=== PATIENT | male | born 1950 | race Caucasian/White ===

== ENCOUNTER 2023-06-17 14:46 | Inpatient (IN) | payer MEDICARE, SELFPAY ==
[2023-06-17 14:51] VITALS: BP 121/99; PULSE 124; RESP 16; TEMP 36.6; O2SAT 96
[2023-06-17 15:36] LABS: Clarity Turbid (Clear); Specific Gravity 1.025 (1.005-1.025)
[2023-06-17 15:39] LABS: Bilirubin Color Interference (Negative); Blood Color Interference (Negative); Glucose Color Interference mg/dL (Negative); Ketones Color Interference mg/dL (Negative); Leukocyte Esterase Color Interference (Negative); Nitrite Color Interference (Negative); Urobilinogen Color Interference mg/dL (Up to 0.2)
[2023-06-17 15:41] LABS: C & S Indicated? Yes; RBC >50 HPF (0-2)
--- NOTE | 2023-06-17 16:21 | DI.CT_ITS ---
Exam(s) CT ABDOMEN PELVIS W EXAM: CT ABDOMEN PELVIS W CLINICAL HISTORY: gross hematuria. TECHNIQUE: Imaging Protocol: Axial computed tomography images with coronal and sagittal reformatted images were created and reviewed CONTRAST MATERIAL: Intravenous: Omnipaque 350 Contrast volume:100 ml Oral: / no COMPARISON: No exams were available for comparison FINDINGS: ABDOMEN and PELVIS: Lung Bases: No acute findings. Liver: Normal density. No measurable mass. Gallbladder and biliary tract: No radiodense calculus or biliary dilation. Pancreas: Normal density. No abnormal calcifications or inflammatory process. No evidence of mass. Spleen: Normal. Kidneys: Normal size, contour and axis. No radiodense stones. Mild bilateral hydronephrosis. No renetta picious masses seen. Cyst upper pole left kidney. No follow-up recommended. Adrenal glands: No masses seen. Vasculature: Abdominal aorta non-dilated. Soft tissues: Small fatty containing umbilical hernia. Small fatty containing inguinal hernias. 8 m illimeter lymph node seen adjacent to the right anterior portion of the bladder. Bladder: Marked irregular wall thickening. Several bladder diverticula are present. Large amount of hemorrhage versus mass within bladder lumen. Malave catheter in place. Bladder mainly decompressed. Bowel: Diverticulosis of the sigmoid colon. No evidence of diverticulitis. Normal quantity of stool . No obstruction. No bowel wall thickening. Appendix normal. Peritoneal cavity: No ascites. No focal collection or mesenteric inflammatory response. Bones: Degenerative changes in the spine. Reproductive organs: Within normal limits. Lymph nodes: Unremarkable. IMPRESSION:: Marked irregular bladder wall thickening. Mass versus hemorrhage within the lumen. Mi ld bilateral hydronephrosis. Findings called to Dr. Dias of the emergency department. RADIATION DOSE DELIVERED: Total DLP DATA REPOSITORY: All CT scans at this facility are submitted to the National Radiology Data Registry (NRDR) Dose Index Registry (DIR) with the [employer] (ACR). RADIATION OPTIMIZATION: All CT scans at this facility use at least one of these dose optimization te chniques: automated exposure control; mA and/or kV adjustment per patient size (includes targeted exa ms where dose is matched to clinical indication); or iterative reconstruction.
[2023-06-17 16:22] VITALS: BP 121/99; PULSE 124; RESP 16; TEMP 36.6; O2SAT 96
--- NOTE | 2023-06-17 16:23 | W.ED.GENAD ---
Discharge Plan Disposition Patient Disposition: Admit to [facility] Condition: Fair Discharge Details Clinical Impression: Gross hematuria, Urinary retention Primary Care Provider: Mary Clements ED Provider: Renny Dias Home Meds and New Rx's Prescriptions: No Action No Known Home Meds [facility] General Mode of arrival: ambulatory. Date/Time Provider Initiated Documentation: 06/17/23 14:55. Limitations to Documentation: no limitations. Information obtained by: patient and RN notes reviewed. HPI Narrative: Patient presents to ED with difficulty urinating and blood in his urine. Patient has had no contact with physician for many years. Considers himself healthy. In March started to develop some difficulty urinating, needing to sit down to urinate, a lot of urgency and nighttime urination. In the last 24 to 48 hours has had gross blood in his urine and even more difficulty urinating. Denies feeling ill, fever, chills. Denies any back or flank pain. Denies any abdominal pain, night sweats, weight loss. Denies any chest pain, lightheadedness, syncope, shortness of breath. Related Data Home Medications Medication Instructions Recorded Confirmed Unknown [No Known Home Meds] 06/17/23 06/17/23 Allergies Allergy/AdvReac Type Severity Reaction Status Date / Time No Known Allergies Allergy Unverified 06/17/23 16:20 General Stated Complaint: Urinary GERARDO: 3 Review of Systems Narrative: per HPI Exam Narrative Exam Narrative: Const: WDWN male in NAD. VS per triage. HEENT: NC/AT. Normal facial exam. Eyes: Normal conjunctiva and sclera. Neck: Supple. Trachea midline. Lungs: Normal respiratory effort. Lungs are clear. Cor: RRR without murmur. Good radial pulses. GI: Soft. NT/ND. No guarding or rebound. Back: No CVAT Neuro: A+O x 3. Normal speech, mentation, gait. Cranial nerves II - XII grossly intact. No gross motor or sensory deficit. Ext: No C/C/E. Skin: Warm and dry without rash. Course Vital Signs Vital signs: Vital Signs Temperature 97.9 F 06/17/23 14:51 Pulse 124 H 06/17/23 14:51 Respiratory Rate 16 06/17/23 14:51 Blood Pressure 121/99 H 06/17/23 14:51 Pulse Oximetry 96 04/10/24 14:51 Temperature 97.9 F 06/17/23 14:51 Temperature Source Oral 06/17/23 14:51 Pulse 124 H 06/17/23 14:51 Respiratory Rate 16 06/17/23 14:51 Blood Pressure 121/99 H 06/17/23 14:51 Blood Pressure Position Sitting 06/17/23 14:51 Pulse Oximetry 96 06/17/23 14:51 Oxygen Delivery Method Room Air 06/17/23 14:51 Oxygen Flow Rate 0 06/17/23 14:51 Pain Level 0 06/17/23 14:51 Lab/Test Results Lab/Test Results: 06/17/23 15:08 Urine - Reflex from Ua Urine Culture - Pending Laboratory Tests Range/Units 06/17/23 15:08 Urine Color (Yellow) Color Interference Urine Clarity (Clear) Turbid Urine pH Not Applicable Ur Specific [place] (1.005-1.025) 1.025 Urine Protein (Neg-Trace) mg/dL Color Interference Urine Ketones (Negative) mg/dL Color Interference Urine Blood (Negative) Color Interference Urine Nitrite (Negative) Color Interference Urine Bilirubin (Negative) Color Interference Urine Urobilinogen (Up to 0.2) mg/dL Color Interference Ur Leukocyte Esterase (Negative) Color Interference Urine RBC (0-2) HPF >50 H Urine WBC Not Applicable Ur Epithelial Cells Not Applicable Urine Crystals Not Applicable Urine Bacteria Not Applicable Urine Mucus Not Applicable Ur Culture Indicated? Yes Urine Glucose (Negative) mg/dL Color Interference Medical Decision Making Patient presenting to ED with urinary retention and gross hematuria. Has had no medical care in many years according to the patient. Does not feel ill otherwise and denies any weight loss, night sweats. Denies any back or flank pain. Will plan IV, labs, three-way Malave with CBI, CT of the abdomen pelvis. Patient white count is elevated to 16. His hemoglobin is normal at 14.1. His BUN is a little elevated at 27 but creatinine normal at 1.3. Electrolytes look okay. His urine is gross blood. Despite his white count he reports not feeling ill and denies any fever or chills. Would not start antibiotics pending culture results. CT of the abdomen pelvis shows some mild symmetric bilateral hydronephrosis. There is significant thickening and irregularity to the bladder wall as well as probable hemorrhagic component in the lumen. With hand irrigation and CBI we were able to clear his urine, however, as soon as CBI is turned off it returns bright red once again. Patient would benefit from admission for CBI overnight and urology consult in the morning. Patient agreeable with plan. Case discussed with hospitalist, Dr. Christy, who has accepted patient to the hospitalist service. Lab Data Lab results reviewed: Yes I reviewed the patient's lab results. Quality:SDOH Health Related Social Needs: No Data to Display [facility] All Active Problems (Updated 06/17/23 @ 19:48 by Renny Dias MD) Urinary retention (Acute) Gross hematuria (Acute) Medical History (Updated 06/17/23 @ 19:48 by Renny Dias MD) No significant past medical history Surgical History No significant past surgical history Social History Smoking/Tobacco Use Status: Never Smoking risk assessment performed?: Yes Housing: house Do you feel safe at home: Yes Do you feel safe in your relationship?: Yes
[2023-06-17 16:41] LABS: Abs Immature Grans 0.05 10^3/uL (0.0-0.06); Absolute Lymphocyte Count 1.42 10^3/uL (1.2-3.4); Basophils % 0.3; Eosinophils % 1.1; HCT 43.1 % (40.0-50.0); HGB 14.1 g/dL (13.5-17.5); Immature Grans % 0.3; Lymphocytes % 8.9; MCH 30.9 pg (27.0-33.0); MCHC 32.7 % (32.0-36.0); MCV 94 fL (80-95); MPV 10.8 fL (8.0-11.0); Monocytes % 6.9; Neutrophils % 82.5; Platelet Count 257 10^3/uL (130-400); RBC 4.57 10^6/uL (4.36-5.78); RDW 12.5 % (11.8-14.1); RDW-SD 43.5 fL
[2023-06-17 16:42] LABS: Absolute Basophil Count 0.05 10^3/uL (0.0-0.2); Absolute Eosinophil Count 0.18 10^3/uL (0.0-0.7)
[2023-06-17] MEDS: Lidocaine 2% Jelly 6 ML SYR (16:49)
[2023-06-17 16:57] LABS: ALT 28 U/L (16-63); AST 19 U/L (15-37); Albumin 3.7 g/dL (3.4-5.0); Alkaline Phosphatase 87 U/L (46-116); Anion Gap 11.9 mmol/L (3-11); BUN 27 mg/dL (7-18); CO2 26.1 mmol/L (21.0-32.0); CREATININE 1.3 mg/dL (0.70-1.30); Calcium 10.2 mg/dL (8.5-10.1); Chloride 105 mmol/L (98-107); Estimated GFR 58.37 (mL/min/1.73m2); Glucose 121 mg/dL (74-106); Potassium 4.2 mmol/L (3.5-5.1); Sodium 143 mmol/L (136-145); Total Protein 8.4 g/dL (6.4-8.2)
[2023-06-17] MEDS: Normal Saline - Diluent 50 ML VIAL IJ (18:02)
[2023-06-17] MEDS: Omnipaque 350 MG/ML 100 ML BTL IJ (18:03)
--- NOTE | 2023-06-17 19:09 | NUR.NOTE ---
Nursing Note CBI emptied 1200 ml
--- NOTE | 2023-06-17 19:14 | NUR.NOTE ---
CBI amount emptied 1800ml Nursing Note:
--- NOTE | 2023-06-17 19:24 | NUR.NOTE ---
Nursing Note: PT CBI bag switched. 3000 ml run at this time.
[2023-06-17 19:25] VITALS: BP 158/109; PULSE 110; RESP 17; O2SAT 92
--- NOTE | 2023-06-17 19:29 | NUR.NOTE ---
Nursing Note: 1200 ml CBI emptied
--- NOTE | 2023-06-17 19:39 | NUR.NOTE ---
Nursing Note: CBI 1250ml clear output emptied
--- NOTE | 2023-06-17 19:51 | NUR.NOTE ---
Nursing Note: CBI 1400 clear urine emptied
--- NOTE | 2023-06-17 20:00 | HPE_ITS ---
Date of service: 06/17/23 Time of Service: 20:00 Assessment and Plan Assessment and plan (1) Gross hematuria: Status: Acute Assessment and plan: Gross hematuria, by imaging bladder is likely source. Will consult for cysto, maintain CBI in meantime (will leave NPO for possible OR). Low grade fever and leukocytosis noted, conceivable this could be presentation of infection, will culture urine and give single dose Rocephin for now to cover this possibility. Reviewed ADs, requests Full Code. History of Present Illness History of Present Illness Chief Complaint: painless hematuria Narrative: 72 male with no significant PMH, does not have regular medical care -- here with 2 days of gross hematuria. No fever, chills, abdominal or bck pain. In ER work up of note for (initially) absence of fever -- during my visit had to temp to 100.0 -- white count 16, gross hematuria, with clots, and CT showing gross thickening of bladder wall along with mild bilateral hydronephrosis. Creatinine 1.3. Malave placed and CBD initiated. I was asked to evaluate for admission. Review of Systems Narrative: per HPI PFSH All Active Problems Urinary retention (Acute) Gross hematuria (Acute) Medical History No significant past medical history Surgical History No significant past surgical history Social History Smoking/Tobacco Use Status: Never Smoking risk assessment performed?: Yes Housing: house Do you feel safe at home: Yes Do you feel safe in your relationship?: Yes Meds Allergies and Home Medications Allergies Allergy/AdvReac Type Severity Reaction Status Date / Time No Known Allergies Allergy Unverified 06/17/23 16:20 Home Medications Medication Instructions Recorded Confirmed Type Unknown [No Known Home Meds] 06/17/23 06/17/23 History Exam Narrative Exam Narrative: 125/85, 91, 100.0, 17, 94% RA. HEENT atraumatic; neck supple; lungs clear; heart occasion ectopic; ; negative CVAT; abdomen soft and NT; : Malave in place, no scrotal swelling or erythema' rectal deferred; extremities trace pedal edema;neuro Ox3, lucid, moves all 4s Results Labs 06/17/23 16:34 06/17/23 16:34 Labs: Laboratory Results - last 24 hr 06/17/23 06/17/23 15:08 16:34 WBC 16.00 H RBC 4.57 Hgb 14.1 Hct 43.1 MCV 94 MCH 30.9 MCHC 32.7 RDW 12.5 Plt Count 257 MPV 10.8 Immature Gran % 0.3 Neutrophils % 82.5 Lymphocytes % 8.9 Monocytes % 6.9 Eosinophils % 1.1 Basophils % 0.3 Nucleated RBC % 0.0 Absolute Neutrophils 13.20 H Absolute Lymphocytes 1.42 Absolute Monocytes 1.10 H Absolute Eosinophils 0.18 Absolute Basophils 0.05 Sodium 143 Potassium 4.2 Chloride 105 Carbon Dioxide 26.1 Anion Gap 11.9 H BUN 27 H Creatinine 1.3 Est GFR (CKD-EPI 2020) 58.37 Glucose 121 H Calcium 10.2 H Total Bilirubin 1.0 AST 19 ALT 28 Alkaline Phosphatase 87 Total Protein 8.4 H Albumin 3.7 Urine Color Color Interference Urine Clarity Turbid Urine pH Not Applicable Ur Specific [place] 1.025 Urine Protein Color Interference Urine Ketones Color Interference Urine Blood Color Interference Urine Nitrite Color Interference Urine Bilirubin Color Interference Urine Urobilinogen Color Interference Ur Leukocyte Esterase Color Interference Urine RBC >50 H Urine WBC Not Applicable Ur Epithelial Cells Not Applicable Urine Crystals Not Applicable Urine Bacteria Not Applicable Urine Mucus Not Applicable Ur Culture Indicated? Yes Urine Glucose Color Interference Last Vital Signs Temp 36.6 C 06/17/23 16:22 Pulse 110 H 06/17/23 19:25 Resp 17 06/17/23 19:25 BP 158/109 H 06/17/23 19:25 Pulse Ox 92 06/17/23 19:25 PAWSS Have you Been Recently Intoxicated or Drunk Within the Last 30 days?: No Have you Ever Experienced Previous Episodes of Alcohol Withdrawal?: No Have you ever Experienced Withdrawal Seizures?: No Have you ever Experienced Delirium Tremens(DT)s?: No Have you ever undergone Alcohol Rehabilitation Treatment (i.e, inpt ot outpatient treatment programs)?: No Have you ever Experienced Blackouts?: No Have you ever Combined Alcohol with other Downers within the last 90 days?: No Have you ever Combined Alcohol with any other Substance of Abuse during the last 90 days?: No Positive Blood Alcohol level on Presentation? [PCS.BAL]: No Evidence of Increased Autonomic Activity (i.e. HR>120, tremor, sweating, agitation, nausea)?: No Result: 0 Time Spent Time spent with Patient: 40-54 minutes Time was spent: preparing to see the patient(eg.review tests), obtaining and/or reviewing separately otained hiistory, ordering medications,tests, procedures, referring, communicating with other health human services care specialist and indepentently interpreting results
--- NOTE | 2023-06-17 20:29 | NUR.NOTE ---
Nursing Note:1800 red tinged output drained at this time
[2023-06-17 20:45] VITALS: BP 141/95; PULSE 105; RESP 17; TEMP 37.7; O2SAT 92
[2023-06-17 20:54] VITALS: BP 126/112; PULSE 113; RESP 22; TEMP 37.8; O2SAT 93
[2023-06-17] MEDS: Normal Saline Flush 10 ML SYR IVP (21:31)
[2023-06-17] MEDS: cefTRIAXone 1,000 MG in Normal Saline 50 ML 100 MG IVPB (21:31)
[2023-06-17 22:38] VITALS: BP 127/87; PULSE 121; RESP 17; TEMP 38.4; O2SAT 94
[2023-06-17] MEDS: Lactated Ringers 1,000 ML 100 ML IV (22:52)
[2023-06-17] MEDS: Acetaminophen 325 MG TAB 650 MG PO (22:57)
[2023-06-18] MEDS: Lactated Ringers 1,000 ML 100 ML IV (07:27)
[2023-06-18] MEDS: Normal Saline Flush 10 ML SYR IVP ×2 (07:28→20:05)
[2023-06-18 08:56] VITALS: BP 116/80; PULSE 88; RESP 18; TEMP 36.8; O2SAT 93
--- NOTE | 2023-06-18 09:18 | PDOC.CMIN ---
Date of service: 06/18/23 Time of Service: 09:19 Care Management Initial Assmt Initial Assessment REASON FOR HOSPITALIZATION:: hematuria PREVIOUS FUNCTIONAL STATUS/SOCIAL/FAMILY SUPPORTS:: Aníbal lives in a single family home in [place], [place] with his housemate Eulalia. He has a son who lives in [place], [place] and a daughter who lives in [place]. Aníbal is retired and stated that he has had many different jobs over the years. 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 Aníbal is independent at baseline and does not receive any community services. CURRENT FUNCTIONAL STATUS:: Aníbal was lying in bed when CM met with him. He was pleasant and engaged well with CM. Aníbal shared that he does not have a PCP and has not sought medical care in many years. He informed CM that he has had prostate issues in the past but has never had hematuria. When he began passing bloody urine with clots, he realized that he needed to be seen. He has a CBI running currently and his urine is more pink than red today with fewer clots. Unfortunately Dr. Carpio is away until next week so Aníbal will likely be discharged with his figueroa and follow up with urology next week. ADVANCE DIRECTIVES:: none on file Has patient been provided with info about the portal/API?: Yes Did the patient sign up for the portal?: No CODE STATUS:: Full Code INSURANCE COVERAGE / FINANCIAL ISSUES:: Medicare CURRENT HOME/COMMUNITY SERVICES/EQUIPMENT:: none PRIMARY CARE PHYSICIAN:: Mary Clements POTENTIAL DISCHARGE NEEDS:: follow up with Urology and PCP PATIENT/FAMILY EDUCATION NEEDS:: Review of discharge instructions, activity, limitations, follow up plan, discuss Ask Me Three TRANSPORTATION:: via private vehicle with family/friend PLAN:: Anticipate Aníbal will be discharged home with no new services when medically stable. He will follow up with Dr. Carpio as an outpatient next week. He will transport with a friend or family member. CM will follow and continue to assess for discharge needs. PFSH All Active Problems Urinary retention (Acute) Gross hematuria (Acute) Medical History No significant past medical history Surgical History No significant past surgical history Social History Smoking/Tobacco Use Status: Never Smoking risk assessment performed?: Yes Housing: house Do you feel safe at home: Yes Do you feel safe in your relationship?: Yes SDOH(Care Management) Screening Will the Patient Participate in the Screening?: Yes Do you worry about having a steady place to live?: no Problems where you live: no known problems In the past 12 months, have you had to go without electric, gas, oil or water in your home?: no Have you or anyone in your house had to go without enough food to eat?: no Has lack of transportation kept you from medical appointments or from doing things needed for daily living?: no Has anyone in your support network made you feel unsafe for any reason?: no
[2023-06-18] MEDS: cefTRIAXone 1 GM/50 ML BAG IVPB (10:25)
[2023-06-18 11:36] VITALS: BP 129/85; PULSE 103; RESP 19; TEMP 37; O2SAT 93
[2023-06-18] MEDS: Acetaminophen 325 MG TAB 650 MG PO ×2 (11:49→19:48)
[2023-06-18] MEDS: Ibuprofen 600 MG TAB PO (13:28)
--- NOTE | 2023-06-18 14:44 | W.PM.PROGNOT ---
Date of Service Date of service: 06/18/23 Time of Service: 14:44 Assessment and Plan Assessment and plan (1) Gross hematuria: Status: Acute Assessment and plan: Secondary to cystitis and chronic urinary retention (2) Urinary retention: Status: Acute Assessment and plan: Continue urinary catheter drainage until seen by urology next week (3) Bilateral hydronephrosis: Status: Acute Assessment and plan: Continue CBI overnight with three-way urinary catheter we will plan for exchange to a Malave catheter in the morning with follow-up with Dr. Carpio next week. (4) Cystitis: Status: Acute Assessment and plan: Continue CBI overnight and Rocephin. Needs cystoscopy to evaluate for bladder mass,. Patient may need a TURP (5) BPH (benign prostatic hyperplasia): Status: Chronic Assessment and plan: Patient has not been on any prescription medicines for this but had been trying [id number] medications. Will start him on Flomax Qualifiers: Lower urinary tract symptom presence: symptoms present Lower urinary tract symptom detail: urinary obstruction Qualified Code(s): N40.1 - Benign prostatic hyperplasia with lower urinary tract symptoms; N13.8 - Other obstructive and reflux uropathy Subjective Subjective Interval history since last seen: Mr. Nichole states he is feeling much better now that the pressure has been relieved from his bladder. He has a three-way catheter with continuous bladder irrigation. Urine is now starting to lighten up. We will continue bladder irrigation through this evening and switch him over to a Malave catheter tomorrow and then plan on discharging him home tomorrow with an indwelling Malave catheter and have him follow-up with Dr. Carpio as an outpatient next week. I went over the results of his CT scan which showed bladder wall thickening and explained to him that they cannot rule out possible bladder mass and he will need to have a cystoscopy next week with biopsies. He does have bilateral hydronephrosis brought on by the bladder outlet obstruction and this should resolve over time. In the interim we will keep him on Rocephin for possible bladder infection pending results of his urine and blood cultures. Exam Narrative Exam Narrative: Elderly white male sitting up in his bed talking with his girlfriend no acute distress alert and oriented Abdomen soft nondistended nontender Three-way catheter draining relatively clear urine just some small shreds of clot still coming through. Previously had been bright red and then became pink and now it looks like a just slightly pinkish discoloration to the urine. Objective Last Vital Signs Temp 37.0 C 06/18/23 11:36 Pulse 103 H 06/18/23 11:36 Resp 19 06/18/23 11:36 BP 129/85 06/18/23 11:36 Pulse Ox 93 06/18/23 11:36 Laboratory Results - last 24 hr 06/17/23 06/17/23 15:08 16:34 WBC 16.00 H RBC 4.57 Hgb 14.1 Hct 43.1 MCV 94 MCH 30.9 MCHC 32.7 RDW 12.5 Plt Count 257 MPV 10.8 Immature Gran % 0.3 Neutrophils % 82.5 Lymphocytes % 8.9 Monocytes % 6.9 Eosinophils % 1.1 Basophils % 0.3 Nucleated RBC % 0.0 Absolute Neutrophils 13.20 H Absolute Lymphocytes 1.42 Absolute Monocytes 1.10 H Absolute Eosinophils 0.18 Absolute Basophils 0.05 Sodium 143 Potassium 4.2 Chloride 105 Carbon Dioxide 26.1 Anion Gap 11.9 H BUN 27 H Creatinine 1.3 Est GFR (CKD-EPI 2020) 58.37 Glucose 121 H Calcium 10.2 H Total Bilirubin 1.0 AST 19 ALT 28 Alkaline Phosphatase 87 Total Protein 8.4 H Albumin 3.7 Urine Color Color Interference Urine Clarity Turbid Urine pH Not Applicable Ur Specific [place] 1.025 Urine Protein Color Interference Urine Ketones Color Interference Urine Blood Color Interference Urine Nitrite Color Interference Urine Bilirubin Color Interference Urine Urobilinogen Color Interference Ur Leukocyte Esterase Color Interference Urine RBC >50 H Urine WBC Not Applicable Ur Epithelial Cells Not Applicable Urine Crystals Not Applicable Urine Bacteria Not Applicable Urine Mucus Not Applicable Ur Culture Indicated? Yes Urine Glucose Color Interference Add-On Test Request [place] PAWSS Have you Been Recently Intoxicated or Drunk Within the Last 30 days?: No Have you Ever Experienced Previous Episodes of Alcohol Withdrawal?: No Have you ever Experienced Withdrawal Seizures?: No Have you ever Experienced Delirium Tremens(DT)s?: No Have you ever undergone Alcohol Rehabilitation Treatment (i.e, inpt ot outpatient treatment programs)?: No Have you ever Experienced Blackouts?: No Have you ever Combined Alcohol with other Downers within the last 90 days?: No Have you ever Combined Alcohol with any other Substance of Abuse during the last 90 days?: No Positive Blood Alcohol level on Presentation? [PCS.BAL]: No Evidence of Increased Autonomic Activity (i.e. HR>120, tremor, sweating, agitation, nausea)?: No Result: 0 Time Spent with Patient Time Spent with Patient: 35-49 minutes Time was spent: preparing to see the patient(eg.review tests), obtaining and/or reviewing separately otained hiistory, ordering medications,tests, procedures, referring, communicating with other health medicare contact specialist, indepentently interpreting results, counseling the patient and care coordination
[2023-06-18 15:36] VITALS: BP 120/80; PULSE 98; RESP 18; TEMP 37.2; O2SAT 92
[2023-06-18 19:46] VITALS: BP 129/83; PULSE 108; RESP 20; TEMP 37.7; O2SAT 92
[2023-06-18] MEDS: Tamsulosin 0.4 MG CAPCR PO (19:48)
[2023-06-19 00:26] VITALS: BP 125/92; PULSE 93; RESP 22; TEMP 37.4; O2SAT 92
[2023-06-19] MEDS: Ibuprofen 600 MG TAB PO ×3 (02:04→22:00)
[2023-06-19 02:06] VITALS: BP 125/85; PULSE 112; RESP 18; TEMP 37.3; O2SAT 91
[2023-06-19 07:11] VITALS: BP 133/88; PULSE 107; RESP 28; TEMP 36.6; O2SAT 91
[2023-06-19] MEDS: Glucosamine/Chondroitin CAP 1 CAP PO ×2 (09:05→20:09)
[2023-06-19] MEDS: Normal Saline Flush 10 ML SYR IVP ×2 (09:07→20:09)
[2023-06-19] MEDS: cefTRIAXone 1 GM/50 ML BAG IVPB (10:24)
[2023-06-19 11:58] VITALS: BP 125/86; PULSE 91; RESP 28; TEMP 37.5; O2SAT 91
--- NOTE | 2023-06-19 13:21 | W.PM.PROGNOT ---
Date of Service Date of service: 06/19/23 Time of Service: 13:21 Assessment and Plan Assessment and plan (1) Gross hematuria: Status: Acute Assessment and plan: Secondary to cystitis and chronic urinary retention, some of the urinary discoloration may be from the phenazopyridine, however, I think that this is gross hematuria. I will stop the pyridium for now (2) Urinary retention: Status: Acute Assessment and plan: Continue urinary catheter drainage until seen by urology next week (3) Bilateral hydronephrosis: Status: Acute Assessment and plan: Continue CBI overnight with three-way urinary catheter we will plan for exchange to a Malave catheter in the morning with follow-up with Dr. Carpio next week. (4) Cystitis: Status: Acute Assessment and plan: Continue CBI overnight and Rocephin. Needs cystoscopy to evaluate for bladder mass,. Patient may need a TURP (5) BPH (benign prostatic hyperplasia): Status: Chronic Assessment and plan: Patient has not been on any prescription medicines for this but had been trying [id number] medications. Will start him on Flomax Qualifiers: Lower urinary tract symptom presence: symptoms present Lower urinary tract symptom detail: urinary obstruction Qualified Code(s): N40.1 - Benign prostatic hyperplasia with lower urinary tract symptoms; N13.8 - Other obstructive and reflux uropathy Subjective Subjective Interval history since last seen: Patient's urine had cleared overnight w/CBI but when CBI was stopped he developed some recurrent hematuria, dark tea colored to dark landa juice color but no clots. I told the patient that we will continue w/ CBI Exam Narrative Exam Narrative: NO abdominal pain or distension, urinary catheter draining dark landa colored urine but no visible clots Objective Last Vital Signs Temp 37.5 C 06/19/23 11:58 Pulse 91 H 06/19/23 11:58 Resp 28 H 06/19/23 11:58 BP 125/86 06/19/23 11:58 Pulse Ox 91 L 06/19/23 11:58 PAWSS Have you Been Recently Intoxicated or Drunk Within the Last 30 days?: No Have you Ever Experienced Previous Episodes of Alcohol Withdrawal?: No Have you ever Experienced Withdrawal Seizures?: No Have you ever Experienced Delirium Tremens(DT)s?: No Have you ever undergone Alcohol Rehabilitation Treatment (i.e, inpt ot outpatient treatment programs)?: No Have you ever Experienced Blackouts?: No Have you ever Combined Alcohol with other Downers within the last 90 days?: No Have you ever Combined Alcohol with any other Substance of Abuse during the last 90 days?: No Positive Blood Alcohol level on Presentation? [PCS.BAL]: No Evidence of Increased Autonomic Activity (i.e. HR>120, tremor, sweating, agitation, nausea)?: No Result: 0 Time Spent with Patient Time Spent with Patient: 25-34 minutes Time was spent: preparing to see the patient(eg.review tests), ordering medications,tests, procedures, referring, communicating with other health home care chaplain, indepentently interpreting results, counseling the patient and care coordination
[2023-06-19 14:11] LABS: Abs Immature Grans 0.04 10^3/uL (0.0-0.06); Absolute Basophil Count 0.08 10^3/uL (0.0-0.2); Absolute Eosinophil Count 1.02 10^3/uL (0.0-0.7); Absolute Lymphocyte Count 1.64 10^3/uL (1.2-3.4); Absolute Monocyte Count 0.76 10^3/uL (0.1-0.8); Absolute Neutrophil Count 7.66 10^3/uL (1.2-6.7); Basophils % 0.7; Eosinophils % 9.1; HCT 38.5 % (40.0-50.0); HGB 12.8 g/dL (13.5-17.5); Immature Grans % 0.4; Lymphocytes % 14.6; MCH 31.1 pg (27.0-33.0); MCHC 33.2 % (32.0-36.0); MCV 94 fL (80-95); Monocytes % 6.8; Neutrophils % 68.4; Platelet Count 240 10^3/uL (130-400); RBC 4.11 10^6/uL (4.36-5.78); RDW 12.2 % (11.8-14.1); RDW-SD 42.3 fL
[2023-06-19 14:23] LABS: BUN 17 mg/dL (7-18); CREATININE 0.9 mg/dL (0.70-1.30); Calcium 9.3 mg/dL (8.5-10.1); Chloride 106 mmol/L (98-107); Estimated GFR 90.74 (mL/min/1.73m2); Glucose 161 mg/dL (74-106); Potassium 3.4 mmol/L (3.5-5.1); Sodium 143 mmol/L (136-145)
[2023-06-19 14:24] LABS: PTT Activated 29.5 sec (23.6-32.8); Prothrombin Time 10.3 sec (9.1-11.1)
--- NOTE | 2023-06-19 14:56 | CHAPLAIN ---
Aníbal was resting in bed when I visited. He was very pleasant and explained that he'll be discharged likely today, and have a follow up appointment with Dr. Carpio next week because he's on vacation this week. Aníbal said his girlfriend will pick him up. He's been in touch with his son and daughter, who both live out of state. Aníbal is originally from [place] and moved up here several years ago. He's retired now. I explained my role and offered support.
--- NOTE | 2023-06-19 16:06 | PDOC.CMPRO ---
Date of service: 06/19/23 Time of Service: 16:06 Care Management Progress Note Progress Note Text Progress Note Text: S/O:Aníbal was sitting up in bed when CM met with him. He appeared to be in good spirits and informed CM that he thought he would be discharged today. Overnight his urine cleared up and was light pink with only a few shreds of clots this morning. He denied pain or discomfort or the need for any services. Unfortunately, Aníbal began to bleed again and the decision was made to restart his CBI and keep him another night. While he was not happy with the outcome, Aníbal stated that he would rather be in the hospital where he could be closely monitored and treated. A: Aníbal is a 72 year old man admitted with hematuria on 06/17/23 P:Anticipate Aníbal will be discharged home with a figueroa catheter in place, when medically stable.he will not need any new services He will follow up with Dr. Carpio as an outpatient next week. He will transport with a friend or family member. CM will follow and continue to assess for discharge needs. SDOH(Care Management) Screening Will the Patient Participate in the Screening?: Yes Do you worry about having a steady place to live?: no Problems where you live: no known problems In the past 12 months, have you had to go without electric, gas, oil or water in your home?: no Have you or anyone in your house had to go without enough food to eat?: no Has lack of transportation kept you from medical appointments or from doing things needed for daily living?: no Has anyone in your support network made you feel unsafe for any reason?: no
[2023-06-19] MEDS: Potassium Chloride 10 MEQ CAPCR 40 MEQ PO (18:12)
[2023-06-19 19:15] VITALS: BP 120/81; PULSE 114; RESP 28; TEMP 36.9; O2SAT 90
[2023-06-19] MEDS: Tamsulosin 0.4 MG CAPCR PO (20:09)
[2023-06-20 03:35] VITALS: BP 120/77; PULSE 94; RESP 18; TEMP 37.4; O2SAT 89
[2023-06-20] MEDS: Ibuprofen 600 MG TAB PO ×2 (06:28→22:32)
[2023-06-20 07:21] LABS: Abs Immature Grans 0.04 10^3/uL (0.0-0.06); Absolute Basophil Count 0.05 10^3/uL (0.0-0.2); Absolute Eosinophil Count 1.38 10^3/uL (0.0-0.7); Absolute Monocyte Count 0.99 10^3/uL (0.1-0.8); Absolute Neutrophil Count 6.89 10^3/uL (1.2-6.7); Basophils % 0.5; Eosinophils % 12.8; HCT 36.1 % (40.0-50.0); HGB 11.8 g/dL (13.5-17.5); Immature Grans % 0.4; MCH 30.3 pg (27.0-33.0); MCHC 32.7 % (32.0-36.0); MCV 93 fL (80-95); MPV 11.7 fL (8.0-11.0); Monocytes % 9.2; Neutrophils % 64.1; Platelet Count 229 10^3/uL (130-400); RDW 12.3 % (11.8-14.1); RDW-SD 41.9 fL; WBC 10.75 10^3/uL (4.4-10.8)
[2023-06-20 07:30] VITALS: BP 123/89; PULSE 105; RESP 22; TEMP 37.3; O2SAT 93
[2023-06-20 07:40] LABS: Anion Gap 9.5 mmol/L (3-11); BUN 17 mg/dL (7-18); CO2 26.5 mmol/L (21.0-32.0); Chloride 109 mmol/L (98-107); Estimated GFR 79.97 (mL/min/1.73m2); Glucose 97 mg/dL (74-106); Potassium 3.7 mmol/L (3.5-5.1); Sodium 145 mmol/L (136-145)
[2023-06-20] MEDS: Glucosamine/Chondroitin CAP 1 CAP PO ×2 (08:25→19:42)
[2023-06-20] MEDS: Normal Saline Flush 10 ML SYR IVP ×2 (08:26→19:42)
[2023-06-20] MEDS: cefTRIAXone 1 GM/50 ML BAG IVPB (09:32)
--- NOTE | 2023-06-20 10:52 | W.PM.PROGNOT ---
Date of Service Date of service: 06/20/23 Time of Service: 10:52 Assessment and Plan Assessment and plan (1) Gross hematuria: Status: Acute Assessment and plan: Secondary to cystitis and chronic urinary retention however cannot exclude possible bladder mass given the bladder wall thickening. Will continue with CBI for the next 24 hours and if the urine clears then we can Off the infusion port of his CBI catheter in leave this to a straight drain and have Dr. Carpio see him on Thursday for cystoscopy. (2) Urinary retention: Status: Acute Assessment and plan: Continue urinary catheter drainage until seen by urology next week Patient begun on Flomax (3) Bilateral hydronephrosis: Status: Acute Assessment and plan: Continue CBI overnight with three-way urinary catheter we will plan for exchange to a Malave catheter in the morning with follow-up with Dr. Carpio next week. (4) Cystitis: Status: Acute Assessment and plan: Continue CBI overnight and Rocephin. Needs cystoscopy to evaluate for bladder mass,. Patient may need a TURP (5) BPH (benign prostatic hyperplasia): Status: Chronic Assessment and plan: Patient has not been on any prescription medicines for this but had been trying [id number] medications. Flomax initiated this admission. Qualifiers: Lower urinary tract symptom presence: symptoms present Lower urinary tract symptom detail: urinary obstruction Qualified Code(s): N40.1 - Benign prostatic hyperplasia with lower urinary tract symptoms; N13.8 - Other obstructive and reflux uropathy Subjective Subjective Interval history since last seen: [place] denies any abdominal pain. His CBI catheter still draining blood although it is no longer the dark landa colored is now more of a lemonade pink. I told great reduce, keep him here through the weekend and have Dr. Carpio see him on Thursday. Exam Narrative Exam Narrative: Aníbal is sitting up in his chair no acute distress alert and oriented Lungs are clear Heart is regular rate rhythm Abdomen obese soft nontender no suprapubic tenderness. Urinary catheter draining pink lemonade colored urine with a few strands of blood clots Objective Last Vital Signs Temp 37.3 C 06/20/23 07:30 Pulse 105 H 06/20/23 07:30 Resp 22 06/20/23 07:30 BP 123/89 06/20/23 07:30 Pulse Ox 93 06/20/23 07:30 Laboratory Results - last 24 hr 06/19/23 06/19/23 06/20/23 14:00 Unknown 07:00 WBC 11.20 H 10.75 RBC 4.11 L 3.90 L Hgb 12.8 L Cancelled 11.8 L Hct 38.5 L Cancelled 36.1 L MCV 94 93 MCH 31.1 30.3 MCHC 33.2 32.7 RDW 12.2 12.3 Plt Count 240 229 MPV 11.0 11.7 H Immature Gran % 0.4 0.4 Neutrophils % 68.4 64.1 Lymphocytes % 14.6 13.0 Monocytes % 6.8 9.2 Eosinophils % 9.1 12.8 Basophils % 0.7 0.5 Nucleated RBC % 0.0 0.0 Absolute Neutrophils 7.66 H 6.89 H Absolute Lymphocytes 1.64 1.40 Absolute Monocytes 0.76 0.99 H Absolute Eosinophils 1.02 H 1.38 H Absolute Basophils 0.08 0.05 PT 10.3 INR 1.0 APTT 29.5 Sodium 143 145 Potassium 3.4 L 3.7 Chloride 106 109 H Carbon Dioxide 28.0 26.5 Anion Gap 9.0 9.5 BUN 17 17 Creatinine 0.9 1.0 Est GFR (CKD-EPI 2020) 90.74 79.97 Glucose 161 H 97 Calcium 9.3 9.0 Patient ABO/Rh A Positive Antibody Screen NEGATIVE PAWSS Have you Been Recently Intoxicated or Drunk Within the Last 30 days?: No Have you Ever Experienced Previous Episodes of Alcohol Withdrawal?: No Have you ever Experienced Withdrawal Seizures?: No Have you ever Experienced Delirium Tremens(DT)s?: No Have you ever undergone Alcohol Rehabilitation Treatment (i.e, inpt ot outpatient treatment programs)?: No Have you ever Experienced Blackouts?: No Have you ever Combined Alcohol with other Downers within the last 90 days?: No Have you ever Combined Alcohol with any other Substance of Abuse during the last 90 days?: No Positive Blood Alcohol level on Presentation? [PCS.BAL]: No Evidence of Increased Autonomic Activity (i.e. HR>120, tremor, sweating, agitation, nausea)?: No Result: 0 Time Spent with Patient Time Spent with Patient: <25 minutes Time was spent: preparing to see the patient(eg.review tests), ordering medications,tests, procedures, indepentently interpreting results, counseling the patient and care coordination
[2023-06-20 11:45] VITALS: BP 117/83; PULSE 95; RESP 20; TEMP 36.8; O2SAT 94
--- NOTE | 2023-06-20 12:07 | PHA.REVIEW2 ---
Pharmacy Admission Review Admission Clinical Review Admission Pharmacy Review: (Updated 06/18/23 @ 15:06 by Bud Vee MD) Cystitis (Acute) Bilateral hydronephrosis (Acute) Urinary retention (Acute) Gross hematuria (Acute) No Known Allergies Allergy (Unverified 06/17/23 16:20) Resuscitation Status Full Code Height 5 ft 10 in Weight 81.647 kg Pharmacy Admission Review Renal Dosing Renal Dosing: BUN 17 mg/dL (7-18) 06/20/23 07:00 Creatinine 1.0 mg/dL (0.70-1.30) 06/20/23 07:00 Medications needing adjustments: Reviewed (CrCl 77.11 mL/min) Anticoagulation Anticoagulation: Hgb 11.8 g/dL (13.5-17.5) L 06/20/23 07:00 Hct 36.1 % (40.0-50.0) L 06/20/23 07:00 Plt Count 229 10^3/uL (130-400) 06/20/23 07:00 INR 1.0 (0.9-1.1) 06/19/23 14:00 Creatinine 1.0 mg/dL (0.70-1.30) 06/20/23 07:00 DVT Prophylaxis: Reviewed (None at this time due to continued hematuria) Relevant Labs Relevant Labs: Sodium 145 mmol/L (136-145) 06/20/23 07:00 Potassium 3.7 mmol/L (3.5-5.1) 06/20/23 07:00 Chloride 109 mmol/L (98-107) H 06/20/23 07:00 Electrolytes, C-Reactive P, ESR: Reviewed (Hgb decreased from 12.8 to 11.8) Cardiac Review BP, HR, EF%: Reviewed (BP WNL, HR 95 - ranging in the high 90s to 100s during admission) QTc Review QTc: Reviewed (No EKG on file) IV to PO Switch IV Medications: Reviewed (ceftriaxone) Home Meds Home Med List reviewed: Reviewed Current Meds Current Medication Order Review: Reviewed Pharmacy Antibiotic Review Pharmacy Antibiotic Activity: C/S review and Reviewed, no change Comments: Patient continues on ceftriaxone day 3. Urine culture growing gram positive mixed jose alberto.
[2023-06-20 14:56] VITALS: BP 123/83; PULSE 108; RESP 20; TEMP 36.9; O2SAT 91
[2023-06-20] MEDS: Tamsulosin 0.4 MG CAPCR PO (19:42)
[2023-06-21 01:52] VITALS: BP 130/70; PULSE 98; RESP 20; TEMP 36.9; O2SAT 95
[2023-06-21] MEDS: Ibuprofen 600 MG TAB PO ×2 (06:09→18:27)
--- NOTE | 2023-06-21 06:53 | PGE_ITS ---
Date of Service Date of service: 06/21/23 Time of Service: 06:53 Assessment and Plan Assessment and plan (1) Gross hematuria: Status: Acute Assessment and plan: 2nd to chronic urinary retention and cystitis, however w/ abnormal bladder wall thickening, need to rule out bladder CA contincue CBI as long as he is passing clots. continue Ceftriaxon for now until he has his cystoscopy. consult Dr. Carpio tomorrow for cystoscopy for evaluation of hematuria and cystitis, r/o bladder mass (2) Urinary retention: Status: Acute Assessment and plan: continue urinary catheter drainage (3) Bilateral hydronephrosis: Status: Acute Assessment and plan: secondary to post bladder obstruction, no stones seen in ureters/kidneys, no renal masses (4) Cystitis: Status: Acute Assessment and plan: continue Ceftriaxone. urine grew >100,000 gram positive jose alberto, he presented initially w/ WBC 16,000 which has since normalized. will continue antibiotics through his cystoscopy. (5) BPH (benign prostatic hyperplasia): Status: Chronic Assessment and plan: patient begun on Flomax; continue urinary catheter drainage pending cystoscopy Qualifiers: Lower urinary tract symptom presence: symptoms present Lower urinary tract symptom detail: urinary obstruction Qualified Code(s): N40.1 - Benign prostatic hyperplasia with lower urinary tract symptoms; N13.8 - Other obstructive and reflux uropathy (6) DVT prophylaxis: Status: Acute Assessment and plan: not candidate for chemoprophylaxis; SCD added Subjective Subjective Interval history since last seen: No new complaints. Denies any nausea or abdominal pains. Has had a BM. Malave still draining shreds of clots. Exam Narrative Exam Narrative: Abdomen: soft, nondistended, no suprapubic tenderness LUngs: clear Heart: RRR Urinary catheter still draining dirty lemonade colored urine w/ small shreds of clots Objective Last Vital Signs Temp 36.9 C 06/21/23 01:52 Pulse 98 H 06/21/23 01:52 Resp 20 06/21/23 01:52 BP 130/70 06/21/23 01:52 Pulse Ox 95 06/21/23 01:52 Laboratory Results - last 24 hr 06/20/23 07:00 WBC 10.75 RBC 3.90 L Hgb 11.8 L Hct 36.1 L MCV 93 MCH 30.3 MCHC 32.7 RDW 12.3 Plt Count 229 MPV 11.7 H Immature Gran % 0.4 Neutrophils % 64.1 Lymphocytes % 13.0 Monocytes % 9.2 Eosinophils % 12.8 Basophils % 0.5 Nucleated RBC % 0.0 Absolute Neutrophils 6.89 H Absolute Lymphocytes 1.40 Absolute Monocytes 0.99 H Absolute Eosinophils 1.38 H Absolute Basophils 0.05 Sodium 145 Potassium 3.7 Chloride 109 H Carbon Dioxide 26.5 Anion Gap 9.5 BUN 17 Creatinine 1.0 Est GFR (CKD-EPI 2020) 79.97 Glucose 97 Calcium 9.0 PAWSS Have you Been Recently Intoxicated or Drunk Within the Last 30 days?: No Have you Ever Experienced Previous Episodes of Alcohol Withdrawal?: No Have you ever Experienced Withdrawal Seizures?: No Have you ever Experienced Delirium Tremens(DT)s?: No Have you ever undergone Alcohol Rehabilitation Treatment (i.e, inpt ot outpatient treatment programs)?: No Have you ever Experienced Blackouts?: No Have you ever Combined Alcohol with other Downers within the last 90 days?: No Have you ever Combined Alcohol with any other Substance of Abuse during the last 90 days?: No Positive Blood Alcohol level on Presentation? [PCS.BAL]: No Evidence of Increased Autonomic Activity (i.e. HR>120, tremor, sweating, agitation, nausea)?: No Result: 0 Time Spent with Patient Time Spent with Patient: 25-34 minutes Time was spent: preparing to see the patient(eg.review tests), ordering medications,tests, procedures, referring, communicating with other health childcare center administrator, indepentently interpreting results, counseling the patient and care coordination
[2023-06-21 06:55] LABS: Abs Immature Grans 0.03 10^3/uL (0.0-0.06); Absolute Basophil Count 0.06 10^3/uL (0.0-0.2); Absolute Eosinophil Count 1.56 10^3/uL (0.0-0.7); Absolute Lymphocyte Count 1.31 10^3/uL (1.2-3.4); Absolute Neutrophil Count 6.41 10^3/uL (1.2-6.7); Basophils % 0.6; Eosinophils % 15.2; HGB 11.9 g/dL (13.5-17.5); Immature Grans % 0.3; Lymphocytes % 12.8; MCH 30.3 pg (27.0-33.0); MCHC 32.2 % (32.0-36.0); MCV 94 fL (80-95); MPV 10.9 fL (8.0-11.0); Monocytes % 8.8; Neutrophils % 62.3; Platelet Count 235 10^3/uL (130-400); RBC 3.93 10^6/uL (4.36-5.78); RDW-SD 42.3 fL; WBC 10.27 10^3/uL (4.4-10.8)
[2023-06-21 07:10] LABS: BUN 16 mg/dL (7-18); Calcium 8.9 mg/dL (8.5-10.1); Chloride 109 mmol/L (98-107); Estimated GFR 79.97 (mL/min/1.73m2); Glucose 99 mg/dL (74-106); Potassium 3.6 mmol/L (3.5-5.1); Sodium 146 mmol/L (136-145)
[2023-06-21 07:56] VITALS: BP 114/84; PULSE 107; RESP 18; TEMP 36.6; O2SAT 93
[2023-06-21] MEDS: cefTRIAXone 1 GM/50 ML BAG IVPB (09:04)
[2023-06-21] MEDS: Glucosamine/Chondroitin CAP 1 CAP PO ×2 (09:05→19:40)
[2023-06-21] MEDS: Normal Saline Flush 10 ML SYR IVP ×3 (09:05→19:40)
[2023-06-21 15:18] VITALS: BP 110/75; PULSE 112; RESP 17; TEMP 37.2; O2SAT 92
--- NOTE | 2023-06-21 17:10 | NUR.NOTE ---
Nursing Note: makes needs known, denies pain, CBI running t/o shift with some small clots noted, good appetite, IV ABX per MD order, tolerating well. offers no complaints.
[2023-06-21] MEDS: Tamsulosin 0.4 MG CAPCR PO (19:40)
[2023-06-21 23:38] VITALS: BP 123/80; PULSE 110; RESP 17; TEMP 37.2; O2SAT 92
[2023-06-22 06:58] LABS: Abs Immature Grans 0.02 10^3/uL (0.0-0.06); Absolute Basophil Count 0.07 10^3/uL (0.0-0.2); Absolute Eosinophil Count 1.62 10^3/uL (0.0-0.7); Absolute Lymphocyte Count 1.21 10^3/uL (1.2-3.4); Absolute Monocyte Count 0.93 10^3/uL (0.1-0.8); Basophils % 0.6; Eosinophils % 13.9; HCT 35.8 % (40.0-50.0); Immature Grans % 0.2; Lymphocytes % 10.4; MCH 30.9 pg (27.0-33.0); MCHC 33.5 % (32.0-36.0); MCV 92 fL (80-95); MPV 11.5 fL (8.0-11.0); Neutrophils % 66.9; Platelet Count 261 10^3/uL (130-400); RBC 3.88 10^6/uL (4.36-5.78); RDW 12.1 % (11.8-14.1); RDW-SD 41.2 fL; WBC 11.68 10^3/uL (4.4-10.8)
[2023-06-22 07:00] LABS: Absolute Neutrophil Count 7.81 10^3/uL (1.2-6.7)
[2023-06-22 07:13] LABS: BUN 18 mg/dL (7-18); Chloride 108 mmol/L (98-107); Estimated GFR 79.97 (mL/min/1.73m2); Glucose 104 mg/dL (74-106); Potassium 3.6 mmol/L (3.5-5.1); Sodium 145 mmol/L (136-145)
[2023-06-22 07:51] VITALS: BP 111/70; PULSE 115; RESP 18; TEMP 37.5; O2SAT 93
[2023-06-22] MEDS: Ibuprofen 600 MG TAB PO ×2 (08:59→20:31)
[2023-06-22] MEDS: Normal Saline Flush 10 ML SYR IVP ×2 (09:00→20:00)
[2023-06-22] MEDS: cefTRIAXone 1 GM/50 ML BAG IVPB (09:00)
--- NOTE | 2023-06-22 09:05 | PDOC.CMPRO ---
Date of service: 06/22/23 Time of Service: 09:05 Care Management Progress Note Progress Note Text Progress Note Text: S/O:Aníbal was sitting up in bed when CM met with him. He appeared to be in good spirits and stated that he feels well. Dr. Carpio saw him in consultation today and plans top take him to the OR tomorrow for a cystoscopy and possible TURP. A: Aníbal is a 72 year old man admitted with hematuria on 06/17/23 P:Anticipate Aníbal will be discharged home with a figueroa catheter in place, when medically stable. He will likely not need any new services and will follow up with Dr. Carpio. Aníbal will transport with a friend or family member. CM will follow and continue to assess for discharge needs. SDOH(Care Management) Screening Will the Patient Participate in the Screening?: Yes Do you worry about having a steady place to live?: no Problems where you live: no known problems In the past 12 months, have you had to go without electric, gas, oil or water in your home?: no Have you or anyone in your house had to go without enough food to eat?: no Has lack of transportation kept you from medical appointments or from doing things needed for daily living?: no Has anyone in your support network made you feel unsafe for any reason?: no
--- NOTE | 2023-06-22 12:35 | PGE_ITS ---
Date of Service Date of service: 06/22/23 Time of Service: 12:36 Assessment and Plan Assessment and plan (1) Gross hematuria: Status: Acute Assessment and plan: -secondary to chronic urinary retention and cystitis, however w/ abnormal bladder wall thickening, need to rule out bladder CA -continue CBI as long as he is passing clots. -continue Ceftriaxon for now -consult ordered for Dr. Carpio to consider cystoscopy (2) Urinary retention: Status: Acute Assessment and plan: continue urinary catheter drainage (3) Bilateral hydronephrosis: Status: Acute Assessment and plan: secondary to post bladder obstruction, no stones seen in ureters/kidneys, no renal masses (4) Cystitis: Status: Acute Assessment and plan: continue Ceftriaxone. urine grew >100,000 gram positive jose alberto, he presented initially w/ WBC 16,000 which has since normalized. will continue antibiotics through his cystoscopy. (5) BPH (benign prostatic hyperplasia): Status: Chronic Assessment and plan: patient begun on Flomax; continue urinary catheter drainage pending cystoscopy Qualifiers: Lower urinary tract symptom presence: symptoms present Lower urinary tract symptom detail: urinary obstruction Qualified Code(s): N40.1 - Benign prostatic hyperplasia with lower urinary tract symptoms; N13.8 - Other obstructive and reflux uropathy (6) DVT prophylaxis: Status: Acute Assessment and plan: not candidate for chemoprophylaxis; SCD added Subjective Subjective Interval history since last seen: Patient states that he is doing well today and understands that we will be reaching out to Urology to inquire about a cystoscopy for his hematuria. Otherwise he has no other complaints or concerns at this time. Exam Narrative Exam Narrative: Well-appearing gentleman laying in bed in no acute distress, ANO x 4, heart regular rhythm, lungs clear to auscultation bilaterally, abdomen soft, nontender, nondistended, Malave catheter in place draining light yellow urine without signs of hematuria or clots Objective Last Vital Signs Temp 99.5 F 06/22/23 07:51 Pulse 115 H 06/22/23 07:51 Resp 18 06/22/23 07:51 BP 111/70 06/22/23 07:51 Pulse Ox 93 06/22/23 07:51 Laboratory Results - last 24 hr 06/22/23 06:29 WBC 11.68 H RBC 3.88 L Hgb 12.0 L Hct 35.8 L MCV 92 MCH 30.9 MCHC 33.5 RDW 12.1 Plt Count 261 MPV 11.5 H Immature Gran % 0.2 Neutrophils % 66.9 Lymphocytes % 10.4 Monocytes % 8.0 Eosinophils % 13.9 Basophils % 0.6 Nucleated RBC % 0.0 Absolute Neutrophils 7.81 H Absolute Lymphocytes 1.21 Absolute Monocytes 0.93 H Absolute Eosinophils 1.62 H Absolute Basophils 0.07 Sodium 145 Potassium 3.6 Chloride 108 H Carbon Dioxide 27.0 Anion Gap 10.0 BUN 18 Creatinine 1.0 Est GFR (CKD-EPI 2020) 79.97 Glucose 104 Calcium 9.0 PAWSS Have you Been Recently Intoxicated or Drunk Within the Last 30 days?: No Have you Ever Experienced Previous Episodes of Alcohol Withdrawal?: No Have you ever Experienced Withdrawal Seizures?: No Have you ever Experienced Delirium Tremens(DT)s?: No Have you ever undergone Alcohol Rehabilitation Treatment (i.e, inpt ot outpatient treatment programs)?: No Have you ever Experienced Blackouts?: No Have you ever Combined Alcohol with other Downers within the last 90 days?: No Have you ever Combined Alcohol with any other Substance of Abuse during the last 90 days?: No Positive Blood Alcohol level on Presentation? [PCS.BAL]: No Evidence of Increased Autonomic Activity (i.e. HR>120, tremor, sweating, agitation, nausea)?: No Result: 0 Time Spent with Patient Time Spent with Patient: >50 minutes Time was spent: preparing to see the patient(eg.review tests), obtaining and/or reviewing separately otained hiistory, ordering medications,tests, procedures, referring, communicating with other health animal care attendant, indepentently interpreting results, counseling the patient and care coordination
[2023-06-22 15:01] VITALS: BP 127/78; PULSE 110; RESP 18; TEMP 37.2; O2SAT 92
--- NOTE | 2023-06-22 15:45 | W.UROLOGYCON ---
Date of service: 06/22/23 Time of Service: 15:51 Assessment and Plan Assessment and plan (1) Gross hematuria: Status: Acute Assessment and plan: We did not identify any masses up in the kidneys, but we still need to evaluate his bladder and prostatic urethra with cystoscopy. With no significant medical issues, I will transfer him to my service. I will keep him n.p.o. after midnight and make arrangements to do cystoscopy, clot evacuation and possible transurethral resection of any bladder tumor in the operating room tomorrow. History of Present Illness History of Present Illness Chief Complaint: Gross hematuria Narrative: This is a 72-year-old gentleman who has no known significant past medical history. He tells me that in March of this past year, he began having lower urinary tract symptoms including hesitancy and nocturia. He tried some [id number] preparations with no significant improvement. Late last week, he developed gross hematuria and clots. He was seen in the emergency department. An irrigating catheter was placed and continuous bladder irrigation was begun. He has been hospitalized since that time. As part of his evaluation, a CT scan was accomplished. No renal masses were seen, but there was solid material within the bladder but it was unclear whether the material was clot or a bladder tumor. He has no history of kidney stones or urologic surgery. He has never been a smoker. He has no family history of urologic malignancy. He is not on any anticoagulants. Review of Systems Narrative: No fevers or chills No vision change or dysphasia No diabetes or thyroid dysfunction No shortness of breath, cough or hemoptysis No chest pain or palpitations No nausea, vomiting, hepatitis, ulcers, jaundice No seizures, strokes or peripheral neuropathy No bleeding disorders or anemia No gout PFSH All Active Problems (Updated 06/21/23 @ 07:01 by Bud Vee MD) DVT prophylaxis (Acute) BPH (benign prostatic hyperplasia) (Chronic) Cystitis (Acute) Bilateral hydronephrosis (Acute) Urinary retention (Acute) Gross hematuria (Acute) Medical History No significant past medical history Surgical History No significant past surgical history Social History Smoking/Tobacco Use Status: Never Smoking risk assessment performed?: Yes Housing: house Do you feel safe at home: Yes Do you feel safe in your relationship?: Yes Exam Narrative Exam Narrative: He appears comfortable His vital signs are documented elsewhere His chest wall motion is normal. He is not short of breath at rest. His abdomen is soft with no mass. There is no CVA tenderness. A Malave catheter is in place and his continuous bladder irrigation is completely clear He is awake and alert Results Last Vital Signs Temp 37.2 C 06/22/23 15:01 Pulse 110 H 06/22/23 15:01 Resp 18 06/22/23 15:01 BP 127/78 06/22/23 15:01 Pulse Ox 92 06/22/23 15:01 Labs 06/22/23 06:29 06/22/23 06:29 Labs: Laboratory Results - last 24 hr 06/22/23 06:29 WBC 11.68 H RBC 3.88 L Hgb 12.0 L Hct 35.8 L MCV 92 MCH 30.9 MCHC 33.5 RDW 12.1 Plt Count 261 MPV 11.5 H Immature Gran % 0.2 Neutrophils % 66.9 Lymphocytes % 10.4 Monocytes % 8.0 Eosinophils % 13.9 Basophils % 0.6 Nucleated RBC % 0.0 Absolute Neutrophils 7.81 H Absolute Lymphocytes 1.21 Absolute Monocytes 0.93 H Absolute Eosinophils 1.62 H Absolute Basophils 0.07 Sodium 145 Potassium 3.6 Chloride 108 H Carbon Dioxide 27.0 Anion Gap 10.0 BUN 18 Creatinine 1.0 Est GFR (CKD-EPI 2020) 79.97 Glucose 104 Calcium 9.0
[2023-06-22] MEDS: Glucosamine/Chondroitin CAP 1 CAP PO (20:00)
[2023-06-22] MEDS: Tamsulosin 0.4 MG CAPCR PO (20:00)
[2023-06-22 23:47] VITALS: BP 106/74; PULSE 108; RESP 18; TEMP 37.1; O2SAT 91
[2023-06-23] VITALS (10 sets, daily range): BP systolic 100–125; BP diastolic 53–83; PULSE 78–114; RESP 16–23; TEMP 36–37.7; O2SAT 90–99; BMI 25.8
--- NOTE | 2023-06-23 07:18 | PGE_ITS ---
Date of Service Date of service: 06/23/23 Time of Service: 07:18 Assessment and Plan Assessment and plan (1) Gross hematuria: Status: Acute Assessment and plan: We have arranged for cystoscopy with possible clot evacuation and possible transurethral resection of any underlying bladder tumor in the operating room later today. The patient is n.p.o. and is signed his permit He is already on antibiotics Subjective Subjective Interval history since last seen: He had a fairly comfortable night with no episodes of clot retention. Exam Narrative Exam Narrative: His vital signs are documented elsewhere He does not appear to be in any acute distress His bladder irrigation is draining clear He is awake and alert Objective Last Vital Signs Temp 37.1 C 06/22/23 23:47 Pulse 108 H 06/22/23 23:47 Resp 18 06/22/23 23:47 BP 106/74 06/22/23 23:47 Pulse Ox 91 L 06/22/23 23:47 PAWSS Have you Been Recently Intoxicated or Drunk Within the Last 30 days?: No Have you Ever Experienced Previous Episodes of Alcohol Withdrawal?: No Have you ever Experienced Withdrawal Seizures?: No Have you ever Experienced Delirium Tremens(DT)s?: No Have you ever undergone Alcohol Rehabilitation Treatment (i.e, inpt ot outpatient treatment programs)?: No Have you ever Experienced Blackouts?: No Have you ever Combined Alcohol with other Downers within the last 90 days?: No Have you ever Combined Alcohol with any other Substance of Abuse during the last 90 days?: No Positive Blood Alcohol level on Presentation? [PCS.BAL]: No Evidence of Increased Autonomic Activity (i.e. HR>120, tremor, sweating, agitation, nausea)?: No Result: 0 Time Spent with Patient Time Spent with Patient: 25-34 minutes Time was spent: preparing to see the patient(eg.review tests), obtaining and/or reviewing separately otained hiistory, referring, communicating with other health care management associate and counseling the patient
--- NOTE | 2023-06-23 08:55 | PDOC.CMPRO ---
Date of service: 06/23/23 Time of Service: 08:55 Care Management Progress Note Progress Note Text Progress Note Text: S/O:Aníbal was sitting up in bed when CM met with him. He is scheduled to go to the OR today for a cystoscopy and possible TURP. He shared that he has never had surgery before so this will be a new experience. While a little apprehensive, Aníbal indicated that he understands that it is necessary in order to find out what is causing the hematuria. Aníbal stated that he feels well and that he will be happy to go home. A: Aníbal is a 72 year old man admitted with hematuria on 06/17/23 P:Anticipate Aníbal will be discharged home with a figueroa catheter in place, when medically stable. He will likely not need any new services and will follow up with Dr. Carpio. Aníbal will transport with a friend or family member. CM will follow and continue to assess for discharge needs. SDOH(Care Management) Screening Will the Patient Participate in the Screening?: Yes Do you worry about having a steady place to live?: no Problems where you live: no known problems In the past 12 months, have you had to go without electric, gas, oil or water in your home?: no Have you or anyone in your house had to go without enough food to eat?: no Has lack of transportation kept you from medical appointments or from doing things needed for daily living?: no Has anyone in your support network made you feel unsafe for any reason?: no
[2023-06-23] MEDS: Ketorolac 15 MG/ML VIAL IVP (09:56)
[2023-06-23] MEDS: cefTRIAXone 1 GM/50 ML BAG IVPB (10:15)
[2023-06-23] MEDS: Normal Saline Flush 10 ML SYR IVP ×2 (10:16→19:51)
--- NOTE | 2023-06-23 12:01 | ANES.PREOP_ITS ---
General Info Date of Service Date Performed: 06/23/23 Height: 5 ft 10 in Weight: 81.647 kg Body Mass Index (BMI): 25.8 Surgical Procedure: Operation Date: 06/23/23 14:55 Proposed Procedure Side Surgeon p Cysto/Clot Evacuation, ?Transurethral Resection Bladder Tumor Nacho Carpio MD Meds Allergies and Home Medications Allergies Allergy/AdvReac Type Severity Reaction Status Date / Time No Known Allergies Allergy Unverified 06/17/23 16:20 Home Medication Medication Instructions Recorded glucosamine-chondroitin 1 tab PO BID 06/18/23 Current Visit Medications: Current Medications Generic Name Dose Route Start Last Admin Trade Name Freq PRN Reason Stop Dose Admin Acetaminophen 650 mg 06/17/23 22:31 06/18/23 19:48 Acetaminophen 325 Mg Tab PO 325 mg Q4H PRN PRN Administration Glucosamine/Chondroitin 1 cap 06/19/23 08:30 06/23/23 10:15 Glucosamine/Chondroitin Cap PO Not Given BID OSCAR Ceftriaxone Sodium/Dextrose 1 gm in 50 mls @ 100 mls/hr 06/18/23 10:00 06/23/23 11:43 Rocephin IVPB Infused Q24H OSCAR Infusion IV Miscellaneous Supplies 1 each 06/18/23 09:00 Iv Access IV DIRECTED OSCAR Ibuprofen 600 mg 06/18/23 12:07 06/22/23 20:31 Ibuprofen 600 Mg Tab PO 600 mg QID PRN PRN Administration Melatonin 6 mg 06/17/23 22:31 Melatonin 3 Mg Tab PO HS PRN PRN Insomnia Sodium Chloride 0 ml 06/18/23 08:50 06/21/23 10:40 Normal Saline Flush 10 Ml Syr IVP 10 ml PRN PRN Administration Sodium Chloride 0 ml 06/18/23 20:00 06/23/23 10:16 Normal Saline Flush 10 Ml Syr IVP 20 ml BID OSCAR Administration Sodium Chloride 0 ml 06/18/23 08:50 Normal Saline 10 Ml Vial IJ DIRECTED PRN Tamsulosin HCl 0.4 mg 06/18/23 20:00 06/22/23 20:00 Tamsulosin 0.4 Mg Capcr PO 0.4 mg HS OSCAR Administration PFSH Active Problems Active Problems: Problem Status Onset Code DVT prophylaxis Z29.9 BPH (benign prostatic hyperplasia) N40.0 Cystitis N30.90 Bilateral hydronephrosis N13.30 Urinary retention R33.9 Gross hematuria R31.0 Medical History Medical History No significant past medical history Surgical History Surgical History No significant past surgical history Tobacco Smoking/Tobacco Use Status: Never Vital Signs and Lab Results Vital Signs Most Recent Vital Signs in EMR: Most Recent Vital Signs Temp Pulse Resp BP Pulse Ox 37.7 C H 104 H 18 125/79 97 06/23/23 11:49 06/23/23 11:49 06/23/23 11:49 06/23/23 11:49 06/23/23 11:49 Lab Results 06/22/23 06:29 06/22/23 06:29 Blood Type / Crossmatch: 2 Patient ABO/Rh A Positive 06/19/23 Antibody Screen NEGATIVE 06/19/23 Complete Blood Count: 2 White Blood Count 11.68 10^3/uL (4.4-10.8) H 06/22/23 06:29 Red Blood Count 3.88 10^6/uL (4.36-5.78) L 06/22/23 06:29 Hemoglobin 12.0 g/dL (13.5-17.5) L 06/22/23 06:29 Hematocrit 35.8 % (40.0-50.0) L 06/22/23 06:29 Platelet Count 261 10^3/uL (130-400) 06/22/23 06:29 Complete Metabolic Panel: 2 Sodium 145 mmol/L (136-145) 06/22/23 06:29 Potassium 3.6 mmol/L (3.5-5.1) 06/22/23 06:29 Chloride 108 mmol/L (98-107) H 06/22/23 06:29 Carbon Dioxide 27.0 mmol/L (21.0-32.0) 06/22/23 06:29 BUN 18 mg/dL (7-18) 06/22/23 06:29 Creatinine 1.0 mg/dL (0.70-1.30) 06/22/23 06:29 Est GFR (CKD-EPI 2020) 79.97 (mL/min/1.73m2) 06/22/23 06:29 Calcium 9.0 mg/dL (8.5-10.1) 06/22/23 06:29 Albumin 3.7 g/dL (3.4-5.0) 06/17/23 16:34 Glucose 104 mg/dL (74-106) 06/22/23 06:29 Liver Function Panel: 2 Alanine Aminotransferase (ALT/SGPT) 28 U/L (16-63) 06/17/23 16: 34 Aspartate Amino Transf (AST/SGOT) 19 U/L (15-37) 06/17/23 16:34 Coagulation Panel: 2 INR International Normalized Ratio 1.0 (0.9-1.1) 06/19/23 14:0 0 Prothrombin Time 10.3 sec (9.1-11.1) 06/19/23 14:00 Activated Partial Thromboplast Time 29.5 sec (23.6-32.8) 14:00 Cardiac Panel: 2 No Data to Display Arterial Blood Gas: 2 No Data to Display Venous Blood Gas: 2 No Data to Display Pancreas Panel: 2 No Data to Display Thyroid Panel: 2 No Data to Display Infectious Disease: 2 No Data to Display Blood Cultures: 2 No Data to Display Toxicology Panel: 2 No Data to Display Anesthesia Assessment and Plan Anesthesia History Personal History: No History of General Anesthesia Family History: No Family History of Anesthesia Complications Exercise Tolerance Exercise Tolerance: Metabolic Equivalents>4 Pertinent Negatives Pertinent Negatives: No Symptoms of GERD Cardiac & Pulmonary Exam Cardiac Exam: Normal S1/S2 Heart Sounds Pulmonary Exam: Clear Bilateral Breath Sounds Implantable Cardiac Device Does patient have a Pacemaker or an ICD?: No Airway Exam Known Difficult Airway: No Mallampati Class: 2 Mouth Opening: Normal (> 3cm) Thyromental Distance: Greater than 3 cm Neck Range of Motion: Full ROM Neck Circumference: Normal Teeth Condition: Generalized Poor Dentition (only 4-5 teeth remaining) ASA Classification ASA Score: ASA 2 Emergency Case?: No NPO Status NPO Status: NPO Clears >2 hours, Solids >8 hours Anesthesia Plan Resuscitation Status: Full Code Anesthesia Technique: General Anesthesia Airway Planned: Endotracheal Tube Monitors Used: Standard Monitors Preoperative Comments:: Minimal health history available. Has never had surgery. Appears in poor nutritional status. Denies any cardiac symptoms, chest pain, chest tightness, rapid HR, etc. Caleb Escobar CRNA
[2023-06-23] MEDS: Lactated Ringers 1,000 ML 50 ML IV ×2 (12:30→16:03)
[2023-06-23] MEDS: Lidocaine 2% Jelly 6 ML SYR (13:00)
--- NOTE | 2023-06-23 13:10 | BLADDER_PTH ---
PATIENT: Aníbal Nichole LOC: U#:[id number] AGE/SX: 72/M ROOM: 207 RE06/17/[address]: Nacho Carpio MD : 1950 BED: A DIS: 06/25/2023 SPEC #: [id number] RECD: 06/23/23 15:54 STATUS: SOUT REQ #: [id number] NURIS: 06/23/23 13:[address]: Nacho Carpio DEPT: Surgical Specimen RECD BY: Kimmy Moreno ENTERED: 06/23/23 15:55 SP TYPE: Bladder OTHR DR: Mary Clements Tissues: 1 - BLADDER CURRETTINGS Procedures: GROSS AND MICRO LEVEL 5 Comments: [id number]
--- NOTE | 2023-06-23 14:05 | BRIEFOP_ITS ---
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
--- NOTE | 2023-06-23 14:06 | ROE_ITS ---
Date of service: 06/23/23 Time of Service: 14:06 Operative Note Operative Note DATE OF PROCEDURE: 06/23/23 PRE-OP DIAGNOSIS: Clot retention POST-OP DIAGNOSIS: same necrotic bladder mass PROCEDURE: cystoscopy, clot evacuation, TUR large bladder mass (>5 cm) incomplete resection SURGEON: Nacho Carpio ANESTHESIA TYPE: Local By Surgeon and General LMA/ETT Refer to Anesthesia Record ESTIMATED BLOOD LOSS: 105 PATHOLOGY: other (bladder mass) COMPLICATIONS: None Patient was transported to: PACU Patient's condition: stable Implants: 16 Bhutanese figueroa with 10 cc sterile water in balloon Indications: This is a 72-year-old gentleman who has not received medical care previously. Kilo sarkar presented to our emergency department with gross hematuria and clots. A catheter was placed and continuous bladder irrigation was maintained. He has not required blood products, but his bladder irrigation has not cleared. He presents for cystoscopy. Findings: clot in bladder large necrotic mass right anterolateral bladder wall Procedure Description: The patient was brought to the operating room on 06/23/2023. He had been given IV antibiotics previously. His indwelling catheter balloon was deflated and the catheter was removed. After successful induction of general anesthesia, he was placed in the dorsal lithotomy position. His genitalia was prepped and draped. 2% Xylocaine jelly was instilled into the urethra to act as a local anesthetic. A 22 Bhutanese rigid cystoscope was passed through the urethra into the bladder. The urethra and bladder were inspected with the 30 degree lens. The pendulous, bulbar and membranous urethra's appeared normal with no strictures. The prostatic urethra showed some lateral lobe enlargement but no significant median lobe. The bladder neck was entered and the bladder mucosa was inspected. A moderate amount of organized clot was seen within the bladder lumen. The clot was evacuated using a Shreyas syringe. The bladder was then inspected and there appeared to be necrotic tissue upon the right anterior to lateral bladder wall. I utilized bipolar cautery and an Cavanaugh resectoscope and resected the necrotic tissue until your regular more vascularized tissue could be seen underneath. In very small portions, the areas appeared papillary, but the majority of the mass appeared and resected like it was more nodular. I did not perform a complete resection of the abnormal appearing area but did resect the majority of the lesion. All resected tissue was evacuated and sent to pathology for permanent section. The base of the resection site and any remaining abnormal tissue was cauterized with the ball electrode. Initially, the necrotic tissue seem to be on a similar plane as the rest of the bladder mucosa, but the mass clearly extended more deeply making me wonder if the mass was originating from a diverticulum. At the completion of the procedure, I saw no active bleeding. I filled the bladder with irrigant and removed the resectoscope. I passed a 16 [place]anese Figueroa catheter through the urethra into the bladder. The catheter balloon was inflated with 10 cc of sterile water and the catheter was hooked to gravity drainage. The patient tolerated the procedure with no complications. He was taken to the recovery room in stable condition.
--- NOTE | 2023-06-23 15:14 | W.ANESPOSTOP ---
Postoperative Evaluation Date, Time and Location Date Performed: 06/23/23 Time Performed: 15:14 Patient Location: PACU Vital Signs Most Recent Imported Vital Signs: Most Recent Vital Signs Temp Pulse Resp BP Pulse Ox 36.5 C 82 16 122/65 99 06/23/23 14:55 06/23/23 14:55 06/23/23 14:55 06/23/23 14:55 06/23/23 14:55 Pain Score Most Recent Pain Score: Most Recent Pain Score Pain Level [Generalized] 0 06/20/23 15:08 Pain Level 5 06/23/23 14:55 Assessment Mental Status: Awake (Alert & Oriented to Patient Baseline) Airway and Respiratory Function: Patent airway with normal (patient baseline) respiratory exam Cardiovascular Function: Hemodynamically Stable Hydration Status: Adequately Hydrated Nausea & Vomiting: No Nausea or Vomiting Pain: Pt. Denies Any Pain Peripheral Nerve Block: Patient did not receive a nerve block
[2023-06-23] MEDS: Ibuprofen 600 MG TAB PO ×2 (15:49→19:51)
--- NOTE | 2023-06-23 15:58 | W.PM.DS.N ---
Date of service: 06/23/23 Time of Service: 16:02 DS: Diagnosis Discharge Diagnosis (1) Gross hematuria: Discharge Plan Disposition Patient Disposition: Home Condition: Stable Discharge Details Reason For Visit: gross hematuria Admit Date/Time: 06/17/23 19:38 Admit Provider: Nacho Carpio Attending Provider: Nacho Carpio Primary Care Provider: Mray Clements Hospital Course Hospital Course: The patient was admitted and a Malave catheter was placed. Continuous bladder irrigation was begun in an attempt to clear his blood clots. The CT scan showed the presence of solid tissue in the bladder. It was unclear whether the solid tissue represented clots or tumor. His hemoglobin and hematocrit were monitored and remained stable. He did not require any blood transfusions. As his hematuria persisted without continuous bladder irrigation, he was taken to the operating room on 06/23/2023. At the time of cystoscopy, some old organized clot was identified and was evacuated. There did appear to be necrotic tissue in the right anterior lateral portion of the bladder. The area was resected and cauterized. The tissue was sent for permanent pathology. During the procedure while the patient was on a quality assurance monitor, he appeared to have supraventricular tachycardia. He was treated with boluses of beta-vernell by our anesthesia team. Following his procedure, his urine cleared and he did not require additional bladder irrigation. He will however require a Malave catheter for approximately 1 week to allow his bladder to heal. He will be discharged to home on postoperative day #1. Home Meds and New Rx's Prescriptions: No Action glucosamine-chondroitin tablet 1 tab PO BID Rx Instructions: rxtlcfapgxe-zdtnjfwmqtx-whxbf-calcium carbonate-hyaluronic acid 750 mg/100 mg/31.5 mg/25 mg/1.65 mg takes 1 tab po BID Discharge Instructions Additional Instructions: Malave catheter to leg bag or large drainage bag Follow-up appointment in 1 week to have his catheter removed and to review his surgical pathology No lifting over 10 pounds until follow-up visit No prescriptions needed at the time of discharge Stand Alone Forms: Nursing Discharge Form Referrals: Jorge Roth NP [NURSE PRACTITIONER] - 06/24/23 3:20 pm (Please arrive early to this appointment to fill out new patient paperwork! ) Activity:: No lifting over 10 pounds Equipment/Supplies:: Malave catheter to leg bag Diet:: As Tolerated Discharge Orders Discharge Orders: Discharge Order (Routine); Ordered 06/24/23 Ordered By: Nacho Carpio Discharge Data Discharge Comment: Patient to be discharged in the morning of 06/23 DS: Summary Time Spent with Patient providing and/or coordinating discharge services: Less than 30 minutes Status at Discharge Functional status at discharge: independent ambulation Overall status at discharge: patient is progressing back to baseline Mental Status: mental status grossly normal Speech and Movement: speech and movement normal Mood: congruent mood Affect: normal affect Quality:SDOH Health Related Social Needs: No Data to Display Exam Narrative Exam Narrative: He appears comfortable His vital signs are documented elsewhere His abdomen is soft with no guarding or rebound tenderness His chest wall motion is normal. He is not short of breath at rest. A Malave catheter is in place and is draining pink-tinged urine He is awake and alert Psych Mental Status: mental status grossly normal Speech and Movement: speech and movement normal Mood: congruent mood Affect: normal affect DS: Data Vitals/I&O Vitals and I&O: Vital Signs Temperature 36.0 C L 06/23/23 15:19 Temperature Source Tympanic 06/23/23 15:19 Pulse 80 06/23/23 15:19 Pulse Rhythm Regular 06/23/23 10:50 Respiratory Rate 17 06/23/23 15:19 Respiratory Effort Normal, Non-Labored 06/23/23 15:29 Respiratory Depth Normal 06/23/23 15:29 Respiratory Pattern Normal 06/23/23 15:29 Blood Pressure 118/83 06/23/23 15:19 Blood Pressure Mean 125 06/17/23 19:25 Blood Pressure Position Supine 06/17/23 19:25 Pulse Oximetry 98 06/23/23 15:19 Respiratory End-tidal CO2 32 06/23/23 14:39 Oxygen Delivery Method Room Air 06/23/23 15:19 Oxygen Flow Rate 0 06/23/23 15:19 Pain Level 4 06/23/23 15:49 Comment 6/10 pain in his feet. 06/22/23 07:51 Intake & Output 06/22/23 06/23/23 06/23/23 23:59 11:59 23:59 Intake Total 540 / 550 60 / 1060 1000 / 1060 Output Total 1725 / 9875 305 / 305 Balance -1185 / -9325 60 / 755 695 / 755 Weight 81.647 kg Intake: IV 60 / 70 60 / 1060 1000 / 1060 Oral 480 / 480 Output: Urine 1725 / 9875 200 / 200 Estimated Blood Loss 105 / 105 Other: Urine Color Pale Straw Dark Elle Yellow Winding [place] Urine Appearance Sediment Clear Clear Urine Odor None Comment pt has CBI om place Emesis Description None Voiding Methods Indwelling Catheter PFSH All Active Problems (Updated 06/23/23 @ 16:04 by Nacho Carpio MD) Bladder mass (Acute) BPH (benign prostatic hyperplasia) (Chronic) Bilateral hydronephrosis (Acute) Medical History (Updated 06/23/23 @ 16:04 by Nacho Carpio MD) Cystitis DVT prophylaxis Gross hematuria Urinary retention SVT (supraventricular tachycardia) Surgical History (Updated 06/23/23 @ 16:04 by Nacho Carpio MD) History of transurethral resection of bladder tumor (TURBT) Social History Smoking/Tobacco Use Status: Never Smoking risk assessment performed?: Yes Housing: house Do you feel safe at home: Yes Do you feel safe in your relationship?: Yes Time Spent with Patient Time Spent with Patient: <45 minutes Time was spent: referring, communicating with other health healthcare recruiter and counseling the patient
[2023-06-23] MEDS: Glucosamine/Chondroitin CAP 1 CAP PO (19:51)
[2023-06-23] MEDS: Tamsulosin 0.4 MG CAPCR PO (19:51)
[2023-06-24] MEDS: Normal Saline Flush 10 ML SYR IVP ×3 (06:48→19:55)
[2023-06-24 08:21] VITALS: BP 108/73; PULSE 82; RESP 16; TEMP 35.8; O2SAT 90
--- NOTE | 2023-06-24 09:16 | CMDISCH_ITS ---
Date of service: 06/25/23 Time of Service: 09:16 LACE Index Scoring Tool Questions: Length of Stay (in days): 7 - 13 Was the patient admitted via the E.D.?: Yes E.D. Visits: 1 Answers: Total Score: 9 Risk of Readmission: Low Risk Care Management Discharge Plan Reason for Hospitalization: hematuria Discharge Plan: Aníbal will be discharged home with no new services. He will follow up with Dr. Carpio as an outpatient next week and will transport with a friend or family member. Patient/Family Education Needs: Review of discharge instructions, activity, limitations, follow up plan, discuss Ask Me [facility] Health Related Social Needs: No Data to Display
[2023-06-24] MEDS: cefTRIAXone 1 GM/50 ML BAG IVPB (10:02)
[2023-06-24] MEDS: Glucosamine/Chondroitin CAP 1 CAP PO ×2 (10:02→19:55)
--- NOTE | 2023-06-24 13:30 | PDOC.CMPRO ---
Date of service: 06/24/23 Time of Service: 13:30 Care Management Progress Note Progress Note Text Progress Note Text: S/O:Aníbal was sitting up in bed when CM met with him. He was scheduled to be discharged today, however he began to have hematuria again. He will be discharged with a figueroa catheter but will need to learn how to irrigate the catheter before going home. Aníbal was concerned about the bleeding, however Abbey Albarran APRN for Urology met with him and explained that it is expected after the procedure that was done yesterday. Aníbal will remain hospitalized one more night and will receive education about catheter irrigation. A: Aníbla is a 72 year old man admitted with hematuria on 06/17/23 P:Anticipate Aníbal will be discharged home with a figueroa catheter in place, when medically stable. He will likely not need any new services and will follow up with Dr. Carpio. Aníbal will transport with a friend or family member. CM will follow and continue to assess for discharge needs. SDOH(Care Management) Screening Will the Patient Participate in the Screening?: Yes Do you worry about having a steady place to live?: no Problems where you live: no known problems In the past 12 months, have you had to go without electric, gas, oil or water in your home?: no Have you or anyone in your house had to go without enough food to eat?: no Has lack of transportation kept you from medical appointments or from doing things needed for daily living?: no Has anyone in your support network made you feel unsafe for any reason?: no
[2023-06-24] MEDS: Oxybutynin 5 MG TAB PO ×2 (16:05→19:55)
--- NOTE | 2023-06-24 16:08 | PGE_ITS ---
Date of Service Date of service: 06/24/23 Time of Service: 13:15 Assessment and Plan Assessment and plan (1) Hematuria: Status: Acute (2) Bladder spasm: Status: Acute Assessment and plan: Nursing has been able to hand irrigate clots and keep the flow of the catheter. Encouraged patient to increase his water intake. For the bladder spasms, will asked the hospitalist to place an order for oxybutynin to help with this matter. Patient to be slated for possible discharge tomorrow instead of today. Dictation was done by [employer] voice recognition. Errors may be present within the note. Subjective Subjective Interval history since last seen: He had a fairly comfortable night with no episodes of clot retention overnight. Patient reports that he has had multiple times where he is needed hand irrigation since early this morning. He notes that even right before lunch he had another clot and needed irrigated again. He expresses concern that he is going to have a clot that is going to occlude his catheter if he is discharged home today. He also expresses concern for urine that is leaking around the catheter. Exam Narrative Exam Narrative: He appears comfortable. A+0x3 His vital signs are documented elsewhere His chest wall motion is normal. He is not short of breath at rest. A Malave catheter is in place and is draining dark-tinged urine with clots in tubing and collecting bag. Objective Last Vital Signs Temp 96.4 F L 06/24/23 08:21 Pulse 82 06/24/23 08:21 Resp 16 06/24/23 08:21 BP 108/73 06/24/23 08:21 Pulse Ox 90 L 06/24/23 08:21 PAWSS Have you Been Recently Intoxicated or Drunk Within the Last 30 days?: No Have you Ever Experienced Previous Episodes of Alcohol Withdrawal?: No Have you ever Experienced Withdrawal Seizures?: No Have you ever Experienced Delirium Tremens(DT)s?: No Have you ever undergone Alcohol Rehabilitation Treatment (i.e, inpt ot o utpatient treatment programs)?: No Have you ever Experienced Blackouts?: No Have you ever Combined Alcohol with other Downers within the last 90 days?: No Have you ever Combined Alcohol with any other Substance of Abuse during the last 90 days?: No Positive Blood Alcohol level on Presentation? [PCS.BAL]: No Evidence of Increased Autonomic Activity (i.e. HR>120, tremor, sweating, agitation, nausea)?: No Result: 0 Time Spent with Patient Time Spent with Patient: <25 minutes Time was spent: preparing to see the patient(eg.review tests), obtaining and/or reviewing separately otained hiistory, referring, communicating with other health career based intervention coordinator, counseling the patient and care coordination
[2023-06-24 16:13] VITALS: BP 116/83; PULSE 100; RESP 16; TEMP 36.3; O2SAT 90
--- NOTE | 2023-06-24 18:55 | NUR.NOTE ---
Nursing Note: clots and hematuria noted, catheter leaking, irrigated x2 with 30-60cc with good effect, aspirated 8cc from balloon in figueroa system and instilled 10cc, notified, new order obtained for oxybutynin denies pain. good appetite, makes needs known
[2023-06-24] MEDS: Tamsulosin 0.4 MG CAPCR PO (19:55)
[2023-06-24 23:29] VITALS: BP 113/78; PULSE 88; RESP 15; TEMP 37.4; O2SAT 96
[2023-06-25 07:37] VITALS: BP 112/87; PULSE 87; RESP 16; TEMP 37; O2SAT 90
[2023-06-25] MEDS: Oxybutynin 5 MG TAB PO (09:12)
[2023-06-25] MEDS: Glucosamine/Chondroitin CAP 1 CAP PO (09:12)
[2023-06-25] MEDS: Normal Saline Flush 10 ML SYR IVP (09:13)
[2023-06-25] MEDS: cefTRIAXone 1 GM/50 ML BAG IVPB (09:43)
[2023-06-25] MEDS: Ibuprofen 600 MG TAB PO (09:44)
--- NOTE | 2023-06-25 09:52 | PGE_ITS ---
Date of Service Date of service: 06/25/23 Time of Service: 09:52 Assessment and Plan Assessment and plan (1) Bladder mass: Status: Acute Assessment and plan: We will discharge him to home with his Malave catheter in place. I offered a home prescription of anticholinergics, but the patient does not feel like he would need them at this point in time. He will follow-up with us next week for his catheter removal. All of his subsequent follow-up and care will depend on the surgical pathology which is not yet available. Subjective Subjective Interval history since last seen: The patient stayed in the hospital yesterday due to leakage around his catheter and catheter occlusion. He responded to irrigation and anticholinergics. This morning, he is quite comfortable and his urine is clear. He feels much more comfortable going home today. Exam Narrative Exam Narrative: He does not appear septic or toxic His vital signs are documented elsewhere He is awake and alert His urine is clear and his catheter tubing Objective Last Vital Signs Temp 37.0 C 06/25/23 07:37 Pulse 87 06/25/23 07:37 Resp 16 06/25/23 07:37 BP 112/87 06/25/23 07:37 Pulse Ox 90 L 06/25/23 07:37 PAWSS Have you Been Recently Intoxicated or Drunk Within the Last 30 days?: No Have you Ever Experienced Previous Episodes of Alcohol Withdrawal?: No Have you ever Experienced Withdrawal Seizures?: No Have you ever Experienced Delirium Tremens(DT)s?: No Have you ever undergone Alcohol Rehabilitation Treatment (i.e, inpt ot outpatient treatment programs)?: No Have you ever Experienced Blackouts?: No Have you ever Combined Alcohol with other Downers within the last 90 days?: No Have you ever Combined Alcohol with any other Substance of Abuse during the last 90 days?: No Positive Blood Alcohol level on Presentation? [PCS.BAL]: No Evidence of Increased Autonomic Activity (i.e. HR>120, tremor, sweating, agitation, nausea)?: No Result: 0 Time Spent with Patient Time Spent with Patient: <25 minutes Time was spent: preparing to see the patient(eg.review tests), obtaining and/or reviewing separately otained hiistory, referring, communicating with other health insurance healthcare representative and other
== END 2023-06-25 15:35 | disposition home or self-care (01) | DRG 669 ==
LOC: ER 20:03 → MS 20:33
PROVIDERS: General Practice; Internal Medicine; Admitting Provider Urology; Emergency Provider Emergency Medicine; PCP Family Medicine; Visit Provider Urology
PROC: 0TBB8ZZ Excision of Bladder, Via Natural or Artificial Opening Endoscopic (ICD-10-PCS; CPT 52240; principal; 2023-06-23 14:45)
DX: I47.10 Supraventricular tachycardia, unspecified (principal); N30.01 Acute cystitis with hematuria; N13.39 Other hydronephrosis; N13.8 Other obstructive and reflux uropathy; N40.1 Benign prostatic hyperplasia with lower urinary tract symptoms; N32.89 Other specified disorders of bladder; T83.031A Leakage of indwelling urethral catheter, initial encounter; C67.3 Malignant neoplasm of anterior wall of bladder
CPT/HCPCS: 52240; 52001; 00123; 36415; 51702; 80048; 80053; 86850; 86900; 86901; 99222; 99231; 99232; 99285; 74177; 81003; 81015; 85025; 85610; 85730; 87086; 88307; 99233; J0696; J1100; J1885; J2001; J2250; J2371; J2405; J2704; J3010; J3490

== ENCOUNTER → 2023-06-23 13:42 | Outpatient (BNVA) | payer MEDICARE, SELFPAY | PROVIDERS: PCP Family Medicine; Referring Provider Family Medicine; Visit Provider Urology ==

== ENCOUNTER → 2023-07-01 07:50 | Outpatient (BNVA) | payer MEDICARE, SELFPAY | PROVIDERS: PCP Family Medicine; Referring Provider Family Medicine; Visit Provider Nurse Practitioner Gerontology | DX: R31.9 Hematuria, unspecified (principal); R33.8 Other retention of urine; N32.89 Other specified disorders of bladder ==

== ENCOUNTER → 2023-07-06 14:56 | Outpatient (BNVA) | payer MEDICARE, SELFPAY | PROVIDERS: PCP Family Medicine; Referring Provider Family Medicine; Visit Provider Urology | DX: C67.9 Malignant neoplasm of bladder, unspecified (principal) | CPT/HCPCS: 99215 ==

== ENCOUNTER → 2023-07-20 01:05 | Outpatient (CLI) | payer MEDICARE, SELFPAY ==
--- NOTE | 2023-07-20 07:30 | DI.CT_ITS ---
Exam(s) CT CHEST W EXAM: CT CHEST W CLINICAL HISTORY: primary bladder ca, ? mets,C67.0 TECHNIQUE: Imaging Protocol: Axial computed tomography images with coronal and sagittal reformatted images were created and reviewed CONTRAST MATERIAL: Intravenous: Omnipaque 350Contrast volume:70 mL. COMPARISON: CT CT ABDOMEN PELVIS W from 06/17/2023 FINDINGS: The examination is limited due to patient motion artifact. Tracheobronchial tree: Patent where visualized. Pulmonary parenchyma: No consolidation or dominant measurable mass. Mild atelectatic changes are seen in the lung bases. Mediastinum and Norma: No dominant adenopathy or fluid collection. The esophagus is unremarkable. Thyroid gland: Unremarkable. Pleura: No effusion or pneumothorax. Heart: The heart is not dilated. Coronary artery calcifications are present. No pericardial effusion . Aorta: Thoracic aorta non-dilated. Mild atherosclerotic calcification is present. Pulmonary arteries: Due to the timing of the bolus, opacification of the pulmonary arteries are subop timal for evaluation of pulmonary emboli. Upper abdomen: There again seen hepatic cysts. Lymph nodes: Within normal limits. Bones: Within normal limits for the patient's age. There is an old left clavicular fracture deformit y. No aggressive osseous lesions. Soft tissues: Unremarkable. IMPRESSION: No evidence of thoracic metastatic disease. RADIATION DOSE DELIVERED: 782.8mGy.cm Total DLP DATA REPOSITORY: All CT scans at this facility are submitted to the National Radiology Data Registry (NRDR) Dose Index Registry (DIR) with the [employer] (ACR). RADIATION OPTIMIZATION: All CT scans at this facility use at least one of these dose optimization te chniques: automated exposure control; mA and/or kV adjustment per patient size (includes targeted exa ms where dose is matched to clinical indication); or iterative reconstruction.
[2023-07-20] MEDS: Omnipaque 350 MG/ML 100 ML BTL IJ (10:15)
[2023-07-20] MEDS: Normal Saline - Diluent 50 ML VIAL IJ (10:15)
== END ==
PROVIDERS: PCP Family Medicine; Visit Provider Urology
DX: C67.9 Malignant neoplasm of bladder, unspecified (principal)
CPT/HCPCS: 71260; J3490

== ENCOUNTER → 2023-07-27 14:28 | Outpatient (BNVA) | payer MEDICARE, SELFPAY | PROVIDERS: PCP Family Medicine; Referring Provider Family Medicine; Visit Provider Urology | DX: C67.9 Malignant neoplasm of bladder, unspecified (principal) | CPT/HCPCS: 99214 ==

== ENCOUNTER 2023-07-31 14:48 | Outpatient (CLI) | payer MEDICARE, SELFPAY ==
[2023-07-31 14:46] LABS: Abs Immature Grans 0.03 10^3/uL (0.0-0.06); Absolute Basophil Count 0.06 10^3/uL (0.0-0.2); Absolute Lymphocyte Count 1.73 10^3/uL (1.2-3.4); Absolute Monocyte Count 0.65 10^3/uL (0.1-0.8); Absolute Neutrophil Count 6.65 10^3/uL (1.2-6.7); Basophils % 0.6 %; Eosinophils % 8.1 %; HCT 39.7 % (40.0-50.0); HGB 12.4 g/dL (13.5-17.5); Immature Grans % 0.3 %; Lymphocytes % 17.4 %; MCH 28.8 pg (27.0-33.0); MCHC 31.2 % (32.0-36.0); MCV 92 fL (80-95); MPV 11.1 fL (8.0-11.0); Monocytes % 6.6 %; Platelet Count 251 10^3/uL (130-400); RBC 4.31 10^6/uL (4.36-5.78); RDW 13.2 % (11.8-14.1); RDW-SD 45.3 fL; WBC 9.92 10^3/uL (4.4-10.8)
[2023-07-31 15:32] LABS: ALT 23 U/L (16-63); AST 15 U/L (15-37); Albumin 3.2 g/dL (3.4-5.0); Alkaline Phosphatase 75 U/L (46-116); Anion Gap 11.2 mmol/L (3-11); BUN 16 mg/dL (7-18); Bilirubin, Total 0.8 mg/dL (0.2-1.0); CO2 26.8 mmol/L (21.0-32.0); CREATININE 1.2 mg/dL (0.70-1.30); Calcium 9.4 mg/dL (8.5-10.1); Chloride 107 mmol/L (98-107); Estimated GFR 64.25 (mL/min/1.73m2); Glucose 125 mg/dL (74-106); Potassium 3.8 mmol/L (3.5-5.1); Sodium 145 mmol/L (136-145); Total Protein 7.8 g/dL (6.4-8.2)
== END 2023-07-31 14:49 | disposition home or self-care (01) ==
LOC: LBO 14:49
PROVIDERS: PCP Family Medicine; Visit Provider Urology
DX: C67.9 Malignant neoplasm of bladder, unspecified (principal); R82.89 Other abnormal findings on cytological and histological examination of urine
CPT/HCPCS: 36415; 80053; 85025

== ENCOUNTER 2023-09-15 10:39 | Emergency (ER) | payer MEDICARE, SELFPAY ==
[2023-09-15] VITALS (24 sets, daily range): BP systolic 68–125; BP diastolic 33–94; PULSE 43–197; RESP 18–47; TEMP 36.9; O2SAT 89–94
--- NOTE | 2023-09-15 10:45 | DI.RAD_ITS ---
Exam(s) XR PORTABLE CHEST AP EXAM: XR PORTABLE CHEST AP CLINICAL HISTORY: cough, weakness TECHNIQUE: 2D digital imaging was performed. COMPARISON: CT CT CHEST W from 07/20/2023 FINDINGS: Exam is limited by poor pulmonary inflation. LUNGS: Grossly clear. No pleural abnormality seen. HEART: Normal size. AORTA: Normal diameter. BONES: Unremarkable severe degenerative changes of the right shoulder. Spine mainly obscured. Soft tissues: Unremarkable. IMPRESSION: Limited exam. No acute findings. DATA REPOSITORY: RADIATION DOSE DELIVERED:
--- NOTE | 2023-09-15 10:45 | RT.EKG_ITS ---
APPROVED REPORT Exam: Resting ECG Reason for Exam: hypotensive Patient Location: E HR:121 bpm ECG Measurements Heart Rate 121 AXIS MN 138 P 21 QRSd 90 QRS -24 QT 318 T 127 QTc 450 Conclusion Sinus tachycardia...rate> 99 Multiform ventricular premature complexes...short R-R, variable morphology Aberrant conduction of SV complex(es)...aberrant shape, MN 80-220 sinus rhythm, PVCs
--- NOTE | 2023-09-15 10:52 | W.ED.GENAD ---
Discharge Plan Disposition Patient Disposition: Transfer-Acute Inpatient Care Specific Acute Inpt Facility: [facility] Discharge Details Clinical Impression: Acute kidney failure, SVT (supraventricular tachycardia), Sepsis, Hypomagnesemia Primary Care Provider: Mary Clements ED Provider: Jaylyn Brandt Home Meds and New Rx's Prescriptions: No Action glucosamine-chondroitin tablet 1 tab PO BID Rx Instructions: lfgucxoqocw-vgtcaywnvek-nmpzr-calcium carbonate-hyaluronic acid 750 mg/100 mg/31.5 mg/25 mg/1.65 mg takes 1 tab po BID HPI General Date/Time Provider Initiated Documentation: 09/15/23 11:21. HPI Narrative: Aníbal is a 72-year-old male with history of bladder neoplasm and recent nephrostomy tube placement [place]09[place]08 [place] [facility] [place] Since arriving home a couple days ago he has been very weak and fatigued, saying he has been sleeping all day. Altered mental status per roommate. He has not been getting up to eat or drink. He does endorse occasional cough accompanied by phlegm, as well as suprapubic abdominal discomfort. he denies fever/chills, sore throat, congestion, chest pain, shortness of breath, nausea/vomiting, change in nephrostomy output. He has not had a bowel movement since coming home. Denies significant past medical history other than bladder cancer. Physical exam remarkable for markedly dehydrated patient with dry mucous membranes. Aníbal is alert and oriented x 3, unable to correctly recall day of week but does know year. Easy work of breathing, lung sounds clear bilaterally though diminished. Abdomen is soft, nondistended, tender to palpation suprapubic region. Dark nephrostomy output noted bilaterally. Normal heart sounds. Peripheral pulses intact bilaterally. Moving all extremities. Blood pressure soft, rate of 83. Tachycardia noted, 121. DDx includes but is not limited to: Sepsis, UTI, pneumonia, dehydration, electrolyte imbalance, other occult infection, cardiac arrhythmia, viral illness I independently interpreted the following tests: EKG notable for sinus tachycardia, rate 121, occasional PVCs noted. No changes c/w acute ischemia. CBC notable for leukocytosis, WBC 13.09. CMP notable for elevated creatinine, 3.8. This is slightly increased from 3.56 on 09/03/23. Total bili also slightly elevated at 1.28, increased from 0.3 on 09/03/23. COVID/flu/RSV negative. Awaiting urinalysis. 1140: [place] was noted to be in SVT, heart rate in the 180s to 190s. This was briefly responsive to vagal stimulation, however did revert back to SVT after vagal maneuvers. He has been asymptomatic, denies dizziness, chest pain, shortness of breath, palpitations. He reports he is feeling better after receiving fluids. Dr. Ji Campos to bedside. While we were discussing new SVT with patient, heart rate returned back to sinus tachycardia after a brief spell of bigeminy, heart rate now in the 130s. IV fluids continuing. Awaiting call back from [facility] [place]rology. 1200: Discussed case with Dr. De Souza, emergency department physician. Patient accepted as ED to ED transfer. Patient agreeable with plan of care, awaiting transportation. Patient confirms he is full code. 1210: Episodes of VT continue, resolving spontaneously after few minutes. Patient is asymptomatic during these episodes. Magnesium obtained, found to be 1.5. 2 g mag sulfate running via IV. Related Data Home Medications Medication Instructions Recorded Confirmed glucosamine-chondroitin 1 tab PO BID 06/18/23 07/31/23 Allergies Allergy/AdvReac Type Severity Reaction Status Date / Time No Known Allergies Allergy Unverified 06/17/23 16:20 General Stated Complaint: AMS/LOC GERARDO: 2 Review of Systems Narrative: see HPI Exam Const General: cooperative, no acute distress, disheveled and ill appearing Nutritional Appearance: cachectic Orientation: oriented x3 HENMT Head: normal to inspection Ears: hearing grossly normal bilaterally Mouth: oral mucosa abnormal (dry) Resp Effort & Inspection: normal respiratory effort and able to speak in complete sentences Auscultation: diminished lung sounds Cardio Rate: tachycardic Rhythm: regular rhythm GI Inspection: non-distended and other (nephrostomy tubes intact bilaterally, draining) Palpation: soft, no masses and tender suprapubicly Male General Exam: Yes normal external exam Penis: normal penis Course Vital Signs Vital signs: Vital Signs Pulse 121 H 09/15/23 10:43 Respiratory Rate 09/15/23 10:43 Blood Pressure 103/83 09/15/23 10:43 Pulse 121 H 09/15/23 10:43 Respiratory Rate 18 09/15/23 10:43 Blood Pressure 103/83 09/15/23 10:43 Oxygen Delivery Method Room Air 09/15/23 10:43 Oxygen Flow Rate 0 09/15/23 10:43 Lab/Test Results Lab/Test Results: 09/15/23 10:47 Blood Blood Culture - Pending 09/15/23 10:47 Blood Blood Culture - Pending Medical Decision Making Medical Records Medical records narrative: I did review previous medical records [place] [facility] [place], including labs drawn on 09/03/2023 and nephrostomy tube placement note from IR on 09/09/2023. 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 No complications noted with procedure. Patient was noted to have bilateral hydronephrosis, right greater than left and 10 Maltese locking pigtail nephrostomy tubes were placed bilaterally. He has an appointment for 3-month routine nephrostomy tube exchange. Recent urology visits with Dr. Carpio also reviewed. Imaging Data Radiologic Study: Radiologist's impression: Exam(s) XR PORTABLE CHEST AP EXAM: XR PORTABLE CHEST AP CLINICAL HISTORY: cough, weakness TECHNIQUE: 2D digital imaging was performed. COMPARISON: CT CT CHEST W from 07/20/2023 FINDINGS: Exam is limited by poor pulmonary inflation. LUNGS: Grossly clear. No pleural abnormality seen. HEART: Normal size. AORTA: Normal diameter. BONES: Unremarkable severe degenerative changes of the right shoulder. Spine mainly obscured. Soft tissues: Unremarkable. IMPRESSION: Limited exam. No acute findings. Quality:SDOH Health Related Social Needs: No Data to Display PFSH All Active Problems (Updated 09/15/23 @ 12:21 by Jaylyn Whittaker) Hypomagnesemia (Acute) Sepsis (Acute) SVT (supraventricular tachycardia) (Chronic) Acute kidney failure (Acute) Primary bladder malignant neoplasm (Acute) Bladder spasm (Acute) BPH (benign prostatic hyperplasia) (Chronic) Bilateral hydronephrosis (Acute) Medical History (Updated 09/15/23 @ 12:21 by Jaylyn Whittaker) Hematuria Bladder mass Cystitis DVT prophylaxis Gross hematuria Urinary retention SVT (supraventricular tachycardia) Surgical History (Updated 06/23/23 @ 16:04 by Nacho Carpio MD) History of transurethral resection of bladder tumor (TURBT) Social History Smoking/Tobacco Use Status: Never Smoking risk assessment performed?: Yes Alcohol Intake: former Substance use type: does not use Housing: house Do you feel safe at home: Yes Do you feel safe in your relationship?: Yes
[2023-09-15 10:55] LABS: Abs Immature Grans 0.06 10^3/uL (0.0-0.06); HCT 42.7 % (40.0-50.0); HGB 13.2 g/dL (13.5-17.5); MCH 27.3 pg (27.0-33.0); MCHC 30.9 % (32.0-36.0); MCV 88 fL (80-95); MPV 12.1 fL (8.0-11.0); Platelet Count 222 10^3/uL (130-400); RBC 4.84 10^6/uL (4.36-5.78); RDW 14.3 % (11.8-14.1); RDW-SD 45.9 fL; WBC 13.09 10^3/uL (4.4-10.8)
[2023-09-15 10:55] LABS: BE (Venous) -1 mmol/L (-2-3); HCO3 (Venous) 24 mmol/L (23-28); O2 Sat (Venous) 33 %; TCO2 (Venous) 22 mmol/L (24-29); pCO2 (Venous) 41 mmHg (41-51); pH (Venous) 7.38 (7.31-7.41); pO2 (Venous) 23 mmHg
[2023-09-15 10:57] LABS: Lactate 2.3 mmol/L (0.6-1.4)
[2023-09-15 11:10] LABS: Absolute Lymphocyte Count 1.05 10^3/uL (1.2-3.4); Absolute Monocyte Count 0.79 10^3/uL (0.1-0.8); Bands % 12 %
[2023-09-15] MEDS: cefTRIAXone 2 GM/50 ML BAG IVPB (11:10)
[2023-09-15 11:11] LABS: Diff Comment Manual Differential; Metamyelocytes % 2; RBC Morphology Normal
[2023-09-15 11:17] LABS: ALT 25 U/L (16-63); AST 20 U/L (15-37); Albumin 2.2 g/dL (3.4-5.0); Alkaline Phosphatase 90 U/L (46-116); Anion Gap 13.9 mmol/L (3-11); BUN 63 mg/dL (7-18); Bilirubin, Total 1.28 mg/dL (0.2-1.0); CO2 25.1 mmol/L (21.0-32.0); Chloride 108 mmol/L (98-107); Estimated GFR 16.11 (mL/min/1.73m2); Glucose 126 mg/dL (74-106); Sodium 147 mmol/L (136-145)
[2023-09-15] MEDS: Normal Saline 1,000 ML 1500 ML IV (11:17)
[2023-09-15 11:19] LABS: CREATININE 3.8 mg/dL (0.70-1.30)
[2023-09-15 11:28] LABS: Procalcitonin 44.3 ng/mL
--- NOTE | 2023-09-15 11:30 | RT.EKG_ITS ---
APPROVED REPORT Exam: Resting ECG Reason for Exam: SVT Patient Location: E HR:138 bpm ECG Measurements Heart Rate 138 AXIS NC 97 P -41 QRSd 89 QRS -17 QT 318 T 122 QTc 486 Conclusion Sinus tachycardia...rate> 99 Ventricular premature complex...V complex w/ short R-R interval Repolarization abnormality, prob rate related...ST dep, T neg, tachycardia sinus tachycardia, left axis, frequent PVCs
[2023-09-15 11:51] LABS: COVID-19 PCR Negative (Negative); Influenza A PCR Negative (Negative); Influenza B PCR Negative (Negative); RSV PCR Negative (Negative)
[2023-09-15 11:53] LABS: Source Nasopharynx
[2023-09-15 12:02] LABS: Magnesium 1.5 mg/dL (1.8-2.4)
[2023-09-15] MEDS: MAGNESIUM SULFATE 2 GM/50 ML BAG IVINF (12:20)
[2023-09-15] MEDS: Lactated Ringers 1,000 ML 125 ML IV (12:20)
[2023-09-15 12:39] LABS: Bilirubin Small (Negative); Blood Moderate (Negative); Clarity Sl Cloudy (Clear); Glucose Negative (Negative); Ketones Negative (Negative); Leukocyte Esterase Trace (Negative); Nitrite Negative (Negative)
[2023-09-15 12:39] LABS: Lab Add On Test DONE
[2023-09-15 12:45] LABS: Bilirubin Moderate (Negative); Blood Large (Negative); Clarity Sl Cloudy (Clear); Glucose Negative (Negative); Ketones Trace mg/dL (Negative); Leukocyte Esterase Small (Negative); Nitrite Negative (Negative); pH 5.5 (5-8)
--- NOTE | 2023-09-15 12:45 | RT.EKG_ITS ---
APPROVED REPORT Exam: Resting ECG Reason for Exam: Rapid Heart Rate Patient Location: E HR:190 bpm ECG Measurements Heart Rate 190 AXIS MD 119 P 107 QRSd 86 QRS -13 QT 280 T 183 QTc 498 Conclusion Supraventricular tachycardia...V-rate>(220-age), QRSd<120 Ventricular premature complex...V complex w/ short R-R interval Repolarization abnormality, prob rate related...ST dep, T neg, tachycardia SVT with rate related st depressions
[2023-09-15 12:51] LABS: Bacteria Few HPF (Negative); Crystals Negative HPF (Negative); Epithelial Cells Rare HPF (Negative); Mucus Trace (Negative)
[2023-09-15 12:52] LABS: Bacteria Many HPF (Negative); C & S Indicated? No; Crystals Negative HPF (Negative); Epithelial Cells Rare HPF (Negative); Mucus Trace (Negative); RBC 20-50 HPF (0-2)
[2023-09-15 12:53] LABS: C & S Indicated? No; Casts 0-2 Coarse Granular LPF (Negative)
== END 2023-09-15 13:17 | disposition short-term general hospital (02) ==
PROVIDERS: Emergency Provider Nurse Practitioner Family; PCP Family Medicine
DX: N17.9 Acute kidney failure, unspecified (principal); I47.10 Supraventricular tachycardia, unspecified; A41.9 Sepsis, unspecified organism; E83.42 Hypomagnesemia; R10.30 Lower abdominal pain, unspecified; C67.9 Malignant neoplasm of bladder, unspecified; Z93.6 Other artificial openings of urinary tract status
CPT/HCPCS: 80053; 82805; 84145; 87040; 87637; 93005; 96360; 96365; 96375; 99285; 71045; 81003; 81015; 83605; 83735; 85025; 93010; J0696; J3475

== ENCOUNTER 2023-10-11 15:28 | Inpatient (IN) | payer MEDICARE, SELFPAY ==
[2023-10-11] VITALS (107 sets, daily range): BP systolic 77–133; BP diastolic 43–86; PULSE 68–197; RESP 14–49; TEMP 37.2–38.1; O2SAT 61–100
--- NOTE | 2023-10-11 15:15 | RT.EKG_ITS ---
APPROVED REPORT Exam: Resting ECG Reason for Exam: weakness Patient Location: E HR:103 bpm ECG Measurements Heart Rate 103 AXIS MD 148 P 25 QRSd 100 QRS -15 QT 400 T 17 QTc 523 Conclusion Sinus tachycardia...rate> 99 Prolonged QT interval...QTc >500mS aflutter with rapid ventricular response
--- NOTE | 2023-10-11 15:30 | DI.CT_ITS ---
Exam(s) CT HEAD WO EXAM: CT HEAD WO CLINICAL HISTORY: ams,fever. TECHNIQUE: Imaging Protocol: Axial computed tomography images with coronal and sagittal reformatted images were created and reviewed COMPARISON: No exams were available for comparison FINDINGS: Ventricles and Extra axial spaces: Normal in size and morphology for the patient's age. Hemorrhage: None. Cerebral parenchyma: No evidence of acute infarct or mass. Mild age related changes. Midline shift: None. Brainstem/Cerebellum: Normal. Calvarium: Normal. Visualized Paranasal sinuses:Clear. Mastoids: Clear. Soft Tissues: Unremarkable. ORBITS: Unremarkable. PITUITARY: Not enlarged. IMPRESSION: No acute intracranial process. RADIATION DOSE DELIVERED: Total DLP DATA REPOSITORY: All CT scans at this facility are submitted to the National Radiology Data Registry (NRDR) Dose Index Registry (DIR) with the [employer] (ACR). RADIATION OPTIMIZATION: All CT scans at this facility use at least one of these dose optimization te chniques: automated exposure control; mA and/or kV adjustment per patient size (includes targeted exa ms where dose is matched to clinical indication); or iterative reconstruction.
--- NOTE | 2023-10-11 15:30 | DI.RAD_ITS ---
Exam(s) XR PORTABLE CHEST AP EXAM: XR PORTABLE CHEST AP CLINICAL HISTORY: ams, fever TECHNIQUE: 2D digital imaging was performed. COMPARISON: CR XR PORTABLE CHEST AP from 09/15/2023 FINDINGS: Exam limited by under penetration and poor pulmonary inflation. Monitoring leads overlie the chest. Right diaphragm is elevated. This is in part secondary to poor pulmonary inflation. LUNGS: Clear where visualized. Pulmonary vascular crowding secondary to poor pulmonary inflation. N o pleural abnormality seen. HEART: Mildly enlarged. AORTA: Mildly tortuous. BONES: Unremarkable for age. Soft tissues: Unremarkable. IMPRESSION: Poor pulmonary inflation. No acute findings. DATA REPOSITORY: RADIATION DOSE DELIVERED:
--- NOTE | 2023-10-11 15:37 | ED.GENADUL_ITS ---
Discharge Plan Disposition Patient Disposition: Admit to [facility] Condition: Stable Discharge Details Chief Complaint: AMS/LOC Clinical Impression: Septic shock, Pneumonia, GLADYS (acute kidney injury) Primary Care Provider: Mary Clements ED Provider: Amrit León Home Meds and New Rx's Prescriptions: No Action glucosamine-chondroitin tablet 1 tab PO BID Rx Instructions: agcgellogyu-caohdhjzkic-fjzrc-calcium carbonate-hyaluronic acid 750 mg/100 mg/31.5 mg/25 mg/1.65 mg takes 1 tab po BID acetaminophen 325 mg capsule 650 mg PO Q4H PRN Eliquis 5 mg tablet 5 mg PO BID Kapspargo Sprinkle 25 mg capsule,sprinkle,ER 24hr 125 mg PO DAILY Therapeutic-M 9 mg iron-400 mcg tablet 1 tab PO DAILY diclofenac sodium [Arthritis Pain (diclofenac)] 1 % gel 4 g topical QID Rx Instructions: apply to single knee, ankle, foot; for foot includes sole/toes/top of foot HPI General Date/Time Provider Initiated Documentation: 10/11/23 15:30 . HPI Narrative: 72-year-old male history of bladder cancer, bilateral nephrostomy tubes, Malave catheter, referred in from assisted living facility for evaluation of fever and decreased energy, multiple COVID patients in his living facility. Related Data Home Medications ?Medication ?Instructions ?Recorded ?Confirmed glucosamine-chondroitin 1 tab PO BID 06/18/23 10/11/23 acetaminophen 325 mg capsule 650 mg PO Q4H PRN 10/11/23 10/11/23 apixaban 5 mg tablet (Eliquis) 5 mg PO BID 10/11/23 10/11/23 diclofenac sodium 1 % topical gel 4 g topical QID 10/11/23 10/11/23 (Arthritis Pain (diclofenac)) metoprolol succinate 25 mg capsule 125 mg PO DAILY 10/11/23 10/11/23 sprinkle, ext. release 24 hr (Kapspargo Sprinkle) multivitamin-iron 9 mg-folic acid 1 tab PO DAILY 10/11/23 10/11/23 400 mcg-calcium and minerals tablet (Therapeutic-M) Allergies Allergy/AdvReac Type Severity Reaction Status Date / Time No Known Allergies Allergy Unverified 10/11/23 18:37 General GERARDO: 2 Exam Narrative Exam Narrative: Fatigued somnolent Slight drying of oral mucosa tolerating secretions Tachypnea expiratory wheeze bilaterally left greater than right Tachycardia no murmurs rubs or gallops Abdomen soft nontender nondistended, patient has bilateral nephrostomy tubes putting out dark yellow urine some blood-tinged from left, Malave catheter putting out dark yellow urine Moving all extremities without deficits No peripheral edema Course Lab/Test Results Lab/Test Results: 10/11/23 15:30 Blood Blood Culture - Pending 10/11/23 15:30 Blood Blood Culture - Pending Medical Decision Making 72-year-old male history of bladder cancer status post transurethral bladder resection, bilateral nephrostomy tubes, Malave catheter in place, referred in from living facility for evaluation of fever and decreased energy over the last day, multiple COVID-positive residents at living facility, patient appears somnolent fatigued slightly dry with dry oral mucosa and poor skin turgor, no respiratory distress nonperitoneal examination, EKG sinus tachycardia versus atrial flutter with rapid ventricular response difficult to assess due to poor baseline, blood sugar 130 in the field per EMS, patient moving all extremities without deficits, dark yellow urine from all bags including nephrostomy and Malave, slight blood-tinged to left, consider UTI versus viral illness such as COVID versus pneumonia versus bacteremia lower suspicion for intra-abdominal infection or obstruction. Low suspicion for meningitis or encephalitis. Consider metabolic encephalopathy versus electrolyte derangement versus dehydration. Screening labs imaging fluids urinalysis chest x-ray CT head COVID flu RSV swab, close reassessment 15: 54 history physical and vital signs consistent with sepsis. Have initiated broad-spectrum antibiotics vancomycin and cefepime. Given patient's tachypnea and age we will start with 500 cc fluid bolus will reassess respiratory status and if tolerated will continue with crystalloid resuscitation 16: 40 patient now tachycardic to the 140s repeating EKG, wheezing expiratory lung sounds bilaterally left base greater than right, no peripheral edema; consider bacterial pneumonia versus component of CHF, awaiting pleural x-ray. Will administer albuterol updraft as well as dexamethasone 10 mg IV 17: 51 mental status improving after fluids and antibiotics, patient currently receiving albuterol neb, BNP greater than 14,000, x-ray read as no consolidation or pleural effusion 19: 24 bedside echo shows dilated LV as well as dilated RV one-to-one ratio, no RV collapse, small pericardial effusion no evidence of tamponade, patient does have B-lines throughout lung hugo. Given history of immobility possible history of DVT in the past RV to LV ratio of 1:1 elevated BNP must consider PE however initial history physical more consistent with septic shock given fever and white count however labs concerning for component of CHF/cardiogenic etiology initiating peripheral pressors norepinephrine 5 mcg/min will place central line when patient returns from CT 21: 12 CT read as bilateral lower lobe pneumonia possible component of interstitial edema. After discussion with Dr. Christy of hospitalist team we decided to trial another liter of crystalloid for volume expansion given bedside ultrasound showing completely collapsed internal jugular veins bilaterally making central line placement nearly impossible. Respiratory status stable on 4 L nasal cannula. Will also draw urine from bilateral nephrostomy Quality:SDOH Health Related Social Needs: No Data to Display PFSH All Active Problems (Updated 10/11/23 @ 22:00 by Amrit León MD) GLADYS (acute kidney injury) (Acute) Pneumonia (Acute) Septic shock (Acute) Hypomagnesemia (Acute) Sepsis (Acute) SVT (supraventricular tachycardia) (Chronic) Acute kidney failure (Acute) Primary bladder malignant neoplasm (Acute) Bladder spasm (Acute) BPH (benign prostatic hyperplasia) (Chronic) Bilateral hydronephrosis (Acute) Medical History Hematuria Bladder mass Cystitis DVT prophylaxis Gross hematuria Urinary retention SVT (supraventricular tachycardia) Surgical History History of transurethral resection of bladder tumor (TURBT) Social History Smoking/Tobacco Use Status: Never Smoking risk assessment performed?: Yes Alcohol Intake: former Substance use type: does not use Housing: house Do you feel safe at home: Yes Do you feel safe in your relationship?: Yes
[2023-10-11 16:05] LABS: BE (Venous) 2 mmol/L (-2-3); HCO3 (Venous) 27 mmol/L (23-28); Lactate 1.3 mmol/L (0.6-1.4); O2 Sat (Venous) 28 %; TCO2 (Venous) 26 mmol/L (24-29); pCO2 (Venous) 45 mmHg (41-51); pH (Venous) 7.39 (7.31-7.41); pO2 (Venous) 20 mmHg
[2023-10-11 16:07] LABS: Absolute Lymphocyte Count 1.46 10^3/uL (1.2-3.4); Absolute Monocyte Count 0.73 10^3/uL (0.1-0.8); Absolute Neutrophil Count 19.02 10^3/uL (1.2-6.7); Basophils % 0.4 %; Eosinophils % 0.2 %; HGB 9.5 g/dL (13.5-17.5); Immature Grans % 0.9 %; Lymphocytes % 6.8 %; MCH 27.1 pg (27.0-33.0); MCHC 30.6 % (32.0-36.0); MCV 88 fL (80-95); MPV 10.2 fL (8.0-11.0); Monocytes % 3.4 %; Neutrophils % 88.3 %; Platelet Count 369 10^3/uL (130-400); RBC 3.51 10^6/uL (4.36-5.78); RDW 15.6 % (11.8-14.1); RDW-SD 50.7 fL; WBC 21.54 10^3/uL (4.4-10.8)
[2023-10-11 16:09] LABS: Absolute Basophil Count 0.09 10^3/uL (0.0-0.2); Absolute Eosinophil Count 0.04 10^3/uL (0.0-0.7)
[2023-10-11] MEDS: Normal Saline 500 ML 1000 ML IV ×2 (16:20→17:26)
[2023-10-11 16:21] LABS: INR 1.4 (0.9-1.1); PTT Activated 45.1 sec (23.6-32.8); Prothrombin Time 13.7 sec (9.1-11.1)
[2023-10-11] MEDS: ACETAMINOPHEN 1,000 MG/100 ML BTL 400 MG IVPB (16:23)
[2023-10-11 16:25] LABS: COVID-19 PCR Negative (Negative); Influenza A PCR Negative (Negative); Influenza B PCR Negative (Negative); RSV PCR Negative (Negative)
[2023-10-11 16:27] LABS: Source Nasopharynx
--- NOTE | 2023-10-11 16:30 | RT.EKG_ITS ---
APPROVED REPORT Exam: Resting ECG Reason for Exam: tachy Patient Location: E HR:119 bpm ECG Measurements Heart Rate 119 AXIS SD [id number] P [id number] QRSd 84 QRS -11 QT 331 T 16 QTc 470 Conclusion Atrial flutter...A-rate 313 irregular narrow complex tachycardia, afib v aflutter rvr
[2023-10-11 16:32] LABS: ALT 33 U/L (16-63); AST 27 U/L (15-37); Albumin 1.8 g/dL (3.4-5.0); Alkaline Phosphatase 317 U/L (46-116); Anion Gap 8.1 mmol/L (3-11); BUN 35 mg/dL (7-18); Bilirubin, Total 0.92 mg/dL (0.2-1.0); CO2 26.9 mmol/L (21.0-32.0); CREATININE 2.9 mg/dL (0.70-1.30); Calcium 10.8 mg/dL (8.5-10.1); Chloride 106 mmol/L (98-107); Estimated GFR 22.29 (mL/min/1.73m2); Glucose 124 mg/dL (74-106); Magnesium 1.4 mg/dL (1.8-2.4); Potassium 4.5 mmol/L (3.5-5.1); Sodium 141 mmol/L (136-145); TSH (W/Ref FT4) 1.94 uIU/mL (0.36-3.74); Total Protein 7.5 g/dL (6.4-8.2)
[2023-10-11] MEDS: MAGNESIUM SULFATE 1 GM/100 ML BAG IVINF (16:49)
[2023-10-11] MEDS: Dexamethasone 10 MG/ML VIAL IVP (17:23)
[2023-10-11 17:26] LABS: NT-proBNP 14126 pg/mL (<300)
[2023-10-11] MEDS: VANCOMYCIN 1,500 MG in Normal Saline 250 ML 166.6666 MG IVPB (17:28)
[2023-10-11 17:30] LABS: Troponin I 61 ng/L (< or =60)
[2023-10-11] MEDS: Albuterol 2.5 MG/3 ML INH SOLN VIAL UPD (17:33)
--- NOTE | 2023-10-11 17:33 | DI.VRAD_ITS ---
PROCEDURE INFORMATION: Exam: CT Head Without Contrast Exam date and time: 10/11/2023 5:14 PM Age: 72 years old Clinical indication: Altered mental status/memory loss and fever TECHNIQUE: Imaging protocol: Computed tomography of the head without contrast. COMPARISON: No relevant prior studies available. FINDINGS: Brain: Islas-white matter differentiation is within normal limits. No mass effect or midline shift. There are mild nonspecific patchy foci of periventricular white matter hypodensity, probably due to chronic microvascular ischemic changes. Sulci and basilar cisterns are mildly prominent due to parenchymal volume loss. No extra-axial fluid collection. Cerebral ventricles: No ventriculomegaly. Paranasal sinuses: Mild mucosal thickening in the right maxillary sinus. Mastoid air cells: Visualized mastoid air cells are well aerated. Bones: Unremarkable. No acute fracture. Soft tissues: Unremarkable. IMPRESSION: 1. No acute intracranial abnormalities. 2. Age-appropriate mild chronic small vessel ischemic changes and parenchymal volume loss. Dictated and Authenticated by: Reinier Cornejo MD. Ordering:SRINIVAS Marcus MD
--- NOTE | 2023-10-11 17:35 | DI.VRAD_ITS ---
PROCEDURE INFORMATION: Exam: XR Chest Exam date and time: 10/11/2023 4:49 PM Age: 72 years old Clinical indication: Fever TECHNIQUE: Imaging protocol: Radiologic exam of the chest. Views: 1 view. COMPARISON: CR XR PORTABLE CHEST AP 09/15/2023 11:16 AM FINDINGS: Lungs: There is elevation of the right hemidiaphragm with low right lung volume. Mild diffuse interstitial thickening bilaterally, unchanged and may be chronic. Pleural spaces: Unremarkable. No pleural effusion. No pneumothorax. Heart/Mediastinum: Cardiac silhouette at the upper limits of normal in size. Bones/joints: Unremarkable. IMPRESSION: 1. No consolidation or pleural effusion. 2. Low right lung volume with elevation right hemidiaphragm. Dictated and Authenticated by: Reinier Cornejo MD. Ordering:SRINIVAS Marcus MD
[2023-10-11] MEDS: Furosemide 40 MG/4 ML VIAL IVP (18:13)
[2023-10-11] MEDS: CEFEPIME 2 GM in Normal Saline 100 ML IVPB (18:16)
[2023-10-11 18:40] LABS: Bilirubin Negative (Negative); Blood Large (Negative); Clarity Sl Cloudy (Clear); Glucose Negative (Negative); Ketones Negative (Negative); Leukocyte Esterase Negative (Negative); Nitrite Negative (Negative); Specific Gravity 1.015 (1.005-1.025); Urobilinogen 0.2 mg/dL (Up to 0.2)
[2023-10-11 18:47] LABS: Bacteria Few HPF (Negative); C & S Indicated? No; Casts Negative LPF (Negative); Crystals Few Amorphous HPF (Negative); Epithelial Cells Negative HPF (Negative); Mucus Trace (Negative)
--- NOTE | 2023-10-11 19:15 | DI.CT_ITS ---
Exam(s) CT CHEST PE CTA EXAM: CT CHEST PE CTA CLINICAL HISTORY: hx dvt, tachy, hypoxic, large RV. TECHNIQUE: Imaging Protocol: CT angiography of the chest was performed using pulmonary embolus yu col. Multi planar reconstructions were performed. CONTRAST MATERIAL: Intravenous: Omnipaque 350 Contrast volume: 100 cc COMPARISON: No exams were available for comparison FINDINGS: CHEST: PULMONARY ARTERIES: There are no intraluminal filling defects to suggest acute pulmonary emboli. LUNGS: Moderately elevated right hemidiaphragm.. There is some infiltrate in the right lower lobe in superior segment as well as posterior and lateral basal segments. No pleural effusion. Milder infi ltrate noted in the left lower lobe. No significant findings in the trachea and mainstem bronchi. MEDIASTINUM: There is no hilar nor mediastinal adenopathy. Visualized thyroid unremarkable. CARDIAC: Heart size is upper normal. There is no pericardial effusion.Caliber of the thoracic aorta is within normal limits. No evidence of dissection. There is no significant shift of the interventri cular septum. PARTIALLY VISUALIZED UPPERMOST ABDOMEN: No obvious findings OSSEOUS: No significant osseous lesions.No fractures. Degenerative changes both glenohumeral joints evident.. IMPRESSION: 1. No evidence of acute pulmonary emboli. No evidence of aortic dissection. 2. Bilateral lower lobe infiltrates, more prominent on the right side. No obvious pleural effusions. 3. Moderately elevated right hemidiaphragm. RADIATION DOSE DELIVERED: Total DLP DATA REPOSITORY: All CT scans at this facility are submitted to the National Radiology Data Registry (NRDR) Dose Index Registry (DIR) with the [employer] (A[employer]). RADIATION OPTIMIZATION: All CT scans at this facility use at least one of these dose optimization te chniques: automated exposure control; mA and/or kV adjustment per patient size (includes targeted exa ms where dose is matched to clinical indication); or iterative reconstruction.
[2023-10-11] MEDS: Norepinephrine in D5W 8 MG/250 ML BAG 9.375 MG IV (19:40)
[2023-10-11 20:05] LABS: Troponin I 52 ng/L (< or =60)
--- NOTE | 2023-10-11 20:58 | DI.VRAD_ITS ---
PROCEDURE INFORMATION: Exam: CTA Chest With Contrast Exam date and time: 10/11/2023 8:05 PM Age: 72 years old Clinical indication: Patient HX: HX dvt, tachy, hypoxic, large rv TECHNIQUE: Imaging protocol: Computed tomographic angiography of the chest with contrast. Exam focused on the arteries. 3D rendering (Not supervised by radiologist): MIP and/or 3D reconstructed images were created by the technologist. Radiation optimization: All CT scans at this facility use at least one of these dose optimization techniques: automated exposure control; mA and/or kV adjustment per patient size (includes targeted exams where dose is matched to clinical indication); or iterative reconstruction. Contrast material: OMNIPAQUE 350; Contrast volume: 70 ml; Contrast route: INTRAVENOUS (IV); COMPARISON: CT CHEST W 07/20/2023 10:15 AM FINDINGS: Pulmonary arteries: Normal. No pulmonary emboli. Aorta: Aortic root is dilated measuring up to 3.9 cm. Lungs: There are airspace opacities in the bilateral lower lobes, greater on the right side suspicious of pneumonia. Mild infiltrate in the left upper lobe. Mild ground-glass density in the posterior segments of the bilateral upper lobes may represent dependent atelectasis. Right lung volume is low with elevation of right hemidiaphragm. There is interstitial septal thickening suspicious of edema.. Pleural spaces: Unremarkable. No pneumothorax. No pleural effusion. Heart: Heart is mildly enlarged. Lymph nodes: No enlarged lymph nodes. Bones/joints: No acute fracture. Soft tissues: Unremarkable. IMPRESSION: 1. No pulmonary embolism visualized. 2. No aortic dissection. 3. Airspace opacities in the bilateral lower lobes suspicious of pneumonia. Mild infiltrate suspected in the left upper lobe. 4. Right lung volume is low with elevation of right hemidiaphragm. 5. Mild cardiomegaly. Interstitial septal thickening suspicious of pulmonary edema. Dictated and Authenticated by: Reinier Cornejo MD. Ordering:SRINIVAS Marcus MD
--- NOTE | 2023-10-11 20:59 | HPE_ITS ---
Date of service: 10/11/23 Time of Service: 20:59 Assessment and Plan Assessment and plan (1) Sepsis: Status: Acute Assessment and plan: Septic shock. Lung is likely source given CT findings but will await divided urinalyses from several sites. Will continue broad spectrum antibiotics as is and continue pressors as needed. Have also requested additional IVF. In this regard the patient's cardiac status is unclear and further unclear as to whether related to immediate illness. By BNP (and limited U/S there appears to be an element of CHF, though clinically the patient is dry. 1. ID: await blood cxx, continue Vanco/Cefepime, U/A from nephrostomy tubes, continue pressors. Have requested central line. 2. Cardiac: minimal troponin bump certainly demand ischemia. As to fluids, will cautiously give additional liter IVF in setting of sepsis. Will obtain formal ECHO. 3. PAF: currently rate controlled on usual Toprol, and improved following IVF. Will continue to monitor and continue DOAC. 4. Code Status: currently listed as Full Code, will maintain as is. History of Present Illness History of Present Illness Chief Complaint: fever Narrative: 72 male with h/o bladder CA, s/p repair of what family states was a perforation in September, with subsequent placement of bilateral nephorostomy tubes and indwelling Malave. Also h/o SVT on Eliquis. Currently resident at [facility] Sent here today for evaluation of fever and somnolence. Here in ER findings of note for initial BP low 100s, then periods in 70s/sys, with pulse ranging to 120s with apparently episodic AF/flutter (currently NSR during my visit). Temp 38.2, white count 21, BN 14,000, troponin 62 then <50, EKG prob flutter/fib, with diffuse TW flattening (unchanged from baseline). Bedside ECHO shows dilated LV with unspecified reduced ejection fraction. CT shows bilateral basilar infiltrate, R>L (my read) and urine 3only 3-5 WBC (notably this was from Malave, have requested separate U/A from each of the nephrostomy tubes). Patient received 1L IVF and started on levophed. Cxx obtained and given doses Vanco and Cefepime. I was asked to evaluate for admission. Patient unable to provide any history and is very somnolent but after sternal rub responds that he is not having any pain. Review of Systems Narrative: unable PFSH All Active Problems Hypomagnesemia (Acute) Sepsis (Acute) SVT (supraventricular tachycardia) (Chronic) Acute kidney failure (Acute) Primary bladder malignant neoplasm (Acute) Bladder spasm (Acute) BPH (benign prostatic hyperplasia) (Chronic) Bilateral hydronephrosis (Acute) Medical History Hematuria Bladder mass Cystitis DVT prophylaxis Gross hematuria Urinary retention SVT (supraventricular tachycardia) Surgical History History of transurethral resection of bladder tumor (TURBT) Social History Smoking/Tobacco Use Status: Never Smoking risk assessment performed?: Yes Alcohol Intake: former Substance use type: does not use Housing: house Do you feel safe at home: Yes Do you feel safe in your relationship?: Yes Meds Allergies and Home Medications Allergies Allergy/AdvReac Type Severity Reaction Status Date / Time No Known Allergies Allergy Unverified 10/11/23 18:37 Home Medications ?Medication ?Instructions ?Recorded ?Confirmed ?Type glucosamine-chondroitin 1 tab PO BID 06/18/23 10/11/23 History acetaminophen 325 mg capsule 650 mg PO Q4H PRN 10/11/23 10/11/23 History apixaban 5 mg tablet (Eliquis) 5 mg PO BID 10/11/23 10/11/23 History diclofenac sodium 1 % topical gel 4 g topical QID 10/11/23 10/11/23 History (Arthritis Pain (diclofenac)) metoprolol succinate 25 mg capsule 125 mg PO DAILY 10/11/23 10/11/23 History sprinkle, ext. release 24 hr (Kapspargo Sprinkle) multivitamin-iron 9 mg-folic acid 1 tab PO DAILY 10/11/23 10/11/23 History 400 mcg-calcium and minerals tablet (Therapeutic-M) Exam Narrative Exam Narrative: 107/sys, 80, 38.2, 34, 97% 5L NC. HEENT atraumatic, dry oral mucosa; neck supple without JVD; lungs (limited anterior exam) grossly clear; heart RRR; abdomen soft and NT, clear urine right nephrostomy tube, scant bloody on left; extremities w/o edema; neuro somnolent, awakens briefly to sternal rub, pupils equal, moves all 4s Results Labs 10/11/23 16:00 10/11/23 16:00 Labs: Laboratory Results - last 24 hr 10/11/23 10/11/23 10/11/23 15:41 16:00 18:30 WBC 21.54 H RBC 3.51 L Hgb 9.5 L Hct 31.0 L MCV 88 MCH 27.1 MCHC 30.6 L RDW 15.6 H Plt Count 369 MPV 10.2 Immature Gran % 0.9 Neutrophils % 88.3 Lymphocytes % 6.8 Monocytes % 3.4 Eosinophils % 0.2 Basophils % 0.4 Nucleated RBC % 0.0 Absolute Neutrophils 19.02 H Absolute Lymphocytes 1.46 Absolute Monocytes 0.73 Absolute Eosinophils 0.04 Absolute Basophils 0.09 PT 13.7 H INR 1.4 H APTT 45.1 H VBG pH 7.39 VBG pCO2 45 VBG pO2 20 VBG HCO3 27 VBG Total CO2 26 VBG O2 Saturation 28 VBG Base Excess 2 VBG Lactate 1.3 Sodium 141 Potassium 4.5 Chloride 106 Carbon Dioxide 26.9 Anion Gap 8.1 BUN 35 H Creatinine 2.9 H Est GFR (CKD-EPI 2020) 22.29 Glucose 124 H Calcium 10.8 H Magnesium 1.4 L Total Bilirubin 0.92 AST 27 ALT 33 Alkaline Phosphatase 317 H Troponin I 61 H NT-Pro-B Natriuret Pep 16651 H Total Protein 7.5 Albumin 1.8 L TSH 1.94 Urine Color Yellow Urine Clarity Sl Cloudy Urine pH 5.0 Ur Specific [place] 1.015 Urine Protein 30 H Urine Ketones Negative Urine Blood Large H Urine Nitrite Negative Urine Bilirubin Negative Urine Urobilinogen 0.2 Ur Leukocyte Esterase Negative Urine RBC 10-20 H Urine WBC 3-5 Ur Epithelial Cells Negative Urine Crystals Few Amorphous Urine Bacteria Few Urine Casts Negative Urine Mucus Trace Ur Culture Indicated? No Urine Glucose Negative COVID-19 Source Nasopharynx SARS-CoV-2 (PCR) Negative Influenza Type A (PCR) Negative Influenza Type B (PCR) Negative RSV (PCR) Negative 10/11/23 19:40 WBC RBC Hgb Hct MCV MCH MCHC RDW Plt Count MPV Immature Gran % Neutrophils % Lymphocytes % Monocytes % Eosinophils % Basophils % Nucleated RBC % Absolute Neutrophils Absolute Lymphocytes Absolute Monocytes Absolute Eosinophils Absolute Basophils PT INR APTT VBG pH VBG pCO2 VBG pO2 VBG HCO3 VBG Total CO2 VBG O2 Saturation VBG Base Excess VBG Lactate Sodium Potassium Chloride Carbon Dioxide Anion Gap BUN Creatinine Est GFR (CKD-EPI 2020) Glucose Calcium Magnesium Total Bilirubin AST ALT Alkaline Phosphatase Troponin I 52 NT-Pro-B Natriuret Pep Total Protein Albumin TSH Urine Color Urine Clarity Urine pH Ur Specific [place] Urine Protein Urine Ketones Urine Blood Urine Nitrite Urine Bilirubin Urine Urobilinogen Ur Leukocyte Esterase Urine RBC Urine WBC Ur Epithelial Cells Urine Crystals Urine Bacteria Urine Casts Urine Mucus Ur Culture Indicated? Urine Glucose COVID-19 Source SARS-CoV-2 (PCR) Influenza Type A (PCR) Influenza Type B (PCR) RSV (PCR) Last Vital Signs Temp 37.2 C 10/11/23 18:22 Pulse 75 10/11/23 20:41 Resp 34 H 10/11/23 20:41 BP 99/63 L 10/11/23 20:41 Pulse Ox 94 10/11/23 19:21 Time Spent Time spent with Patient: 55-74 minutes Time was spent: preparing to see the patient(eg.review tests), obtaining and/or reviewing separately otained hiistory, ordering medications,tests, procedures, referring, communicating with other health progressive care unit registered nurse and indepentently interpreting results
[2023-10-11] MEDS: Normal Saline 1,000 ML 1000 ML IV (21:33)
--- NOTE | 2023-10-11 21:42 | W.PM.HP.N ---
Date of service: 10/11/23 Time of Service: 21:43 History of Present Illness History of Present Illness Chief Complaint: SOB, edema PFSH All Active Problems (Updated 10/11/23 @ 22:00 by Amrit León MD) GLADYS (acute kidney injury) (Acute) Pneumonia (Acute) Septic shock (Acute) Hypomagnesemia (Acute) Sepsis (Acute) SVT (supraventricular tachycardia) (Chronic) Acute kidney failure (Acute) Primary bladder malignant neoplasm (Acute) Bladder spasm (Acute) BPH (benign prostatic hyperplasia) (Chronic) Bilateral hydronephrosis (Acute) Medical History Hematuria Bladder mass Cystitis DVT prophylaxis Gross hematuria Urinary retention SVT (supraventricular tachycardia) Surgical History History of transurethral resection of bladder tumor (TURBT) Social History Smoking/Tobacco Use Status: Never Smoking risk assessment performed?: Yes Alcohol Intake: former Substance use type: does not use Housing: house Do you feel safe at home: Yes Do you feel safe in your relationship?: Yes Meds Allergies and Home Medications Allergies Allergy/AdvReac Type Severity Reaction Status Date / Time No Known Allergies Allergy Unverified 10/11/23 18:37 Home Medications ?Medication ?Instructions ?Recorded ?Confirmed ?Type glucosamine-chondroitin 1 tab PO BID 06/18/23 10/11/23 History acetaminophen 325 mg capsule 650 mg PO Q4H PRN 10/11/23 10/11/23 History apixaban 5 mg tablet (Eliquis) 5 mg PO BID 10/11/23 10/11/23 History diclofenac sodium 1 % topical gel 4 g topical QID 10/11/23 10/11/23 History (Arthritis Pain (diclofenac)) metoprolol succinate 25 mg capsule 125 mg PO DAILY 10/11/23 10/11/23 History sprinkle, ext. release 24 hr (Kapspargo Sprinkle) multivitamin-iron 9 mg-folic acid 1 tab PO DAILY 10/11/23 10/11/23 History 400 mcg-calcium and minerals tablet (Therapeutic-M) Results Labs 10/11/23 16:00 10/11/23 16:00 Labs: Laboratory Results - last 24 hr 10/11/23 10/11/23 10/11/23 15:41 16:00 18:30 WBC 21.54 H RBC 3.51 L Hgb 9.5 L Hct 31.0 L MCV 88 MCH 27.1 MCHC 30.6 L RDW 15.6 H Plt Count 369 MPV 10.2 Immature Gran % 0.9 Neutrophils % 88.3 Lymphocytes % 6.8 Monocytes % 3.4 Eosinophils % 0.2 Basophils % 0.4 Nucleated RBC % 0.0 Absolute Neutrophils 19.02 H Absolute Lymphocytes 1.46 Absolute Monocytes 0.73 Absolute Eosinophils 0.04 Absolute Basophils 0.09 PT 13.7 H INR 1.4 H APTT 45.1 H VBG pH 7.39 VBG pCO2 45 VBG pO2 20 VBG HCO3 27 VBG Total CO2 26 VBG O2 Saturation 28 VBG Base Excess 2 VBG Lactate 1.3 Sodium 141 Potassium 4.5 Chloride 106 Carbon Dioxide 26.9 Anion Gap 8.1 BUN 35 H Creatinine 2.9 H Est GFR (CKD-EPI 2020) 22.29 Glucose 124 H Calcium 10.8 H Magnesium 1.4 L Total Bilirubin 0.92 AST 27 ALT 33 Alkaline Phosphatase 317 H Troponin I 61 H NT-Pro-B Natriuret Pep 90141 H Total Protein 7.5 Albumin 1.8 L TSH 1.94 Urine Color Yellow Urine Clarity Sl Cloudy Urine pH 5.0 Ur Specific [place] 1.015 Urine Protein 30 H Urine Ketones Negative Urine Blood Large H Urine Nitrite Negative Urine Bilirubin Negative Urine Urobilinogen 0.2 Ur Leukocyte Esterase Negative Urine RBC 10-20 H Urine WBC 3-5 Ur Epithelial Cells Negative Urine Crystals Few Amorphous Urine Bacteria Few Urine Casts Negative Urine Mucus Trace Ur Culture Indicated? No Urine Glucose Negative COVID-19 Source Nasopharynx SARS-CoV-2 (PCR) Negative Influenza Type A (PCR) Negative Influenza Type B (PCR) Negative RSV (PCR) Negative 10/11/23 19:40 WBC RBC Hgb Hct MCV MCH MCHC RDW Plt Count MPV Immature Gran % Neutrophils % Lymphocytes % Monocytes % Eosinophils % Basophils % Nucleated RBC % Absolute Neutrophils Absolute Lymphocytes Absolute Monocytes Absolute Eosinophils Absolute Basophils PT INR APTT VBG pH VBG pCO2 VBG pO2 VBG HCO3 VBG Total CO2 VBG O2 Saturation VBG Base Excess VBG Lactate Sodium Potassium Chloride Carbon Dioxide Anion Gap BUN Creatinine Est GFR (CKD-EPI 2020) Glucose Calcium Magnesium Total Bilirubin AST ALT Alkaline Phosphatase Troponin I 52 NT-Pro-B Natriuret Pep Total Protein Albumin TSH Urine Color Urine Clarity Urine pH Ur Specific [place] Urine Protein Urine Ketones Urine Blood Urine Nitrite Urine Bilirubin Urine Urobilinogen Ur Leukocyte Esterase Urine RBC Urine WBC Ur Epithelial Cells Urine Crystals Urine Bacteria Urine Casts Urine Mucus Ur Culture Indicated? Urine Glucose COVID-19 Source SARS-CoV-2 (PCR) Influenza Type A (PCR) Influenza Type B (PCR) RSV (PCR) Last Vital Signs Temp 37.2 C 10/11/23 18:22 Pulse 75 10/11/23 21:21 Resp 24 10/11/23 21:21 BP 100/64 10/11/23 21:21 Pulse Ox 94 10/11/23 19:21 Time Spent Time spent with Patient: 55-74 minutes Time was spent: preparing to see the patient(eg.review tests), obtaining and/or reviewing separately otained hiistory, ordering medications,tests, procedures, referring, communicating with other health rn palliative care and indepentently interpreting results
[2023-10-11 21:45] LABS: Bilirubin Negative (Negative); Blood Moderate (Negative); Clarity Sl Cloudy (Clear); Glucose Negative (Negative); Ketones Negative (Negative); Leukocyte Esterase Negative (Negative); Nitrite Negative (Negative); Specific Gravity 1.015 (1.005-1.025); Urobilinogen 0.2 mg/dL (Up to 0.2); pH 5.5 (5-8)
[2023-10-11 21:52] LABS: Bacteria Few HPF (Negative); Epithelial Cells Negative HPF (Negative); Other Cells Rare Yeast (Negative); WBC 0-2 HPF (0-5)
[2023-10-11 21:53] LABS: C & S Indicated? No; Casts Negative LPF (Negative); Crystals Negative HPF (Negative); Mucus Trace (Negative)
[2023-10-12] VITALS (99 sets, daily range): BP systolic 75–159; BP diastolic 49–132; PULSE 61–139; RESP 5–44; TEMP 36–38.2; O2SAT 81–97
--- NOTE | 2023-10-12 | DI.US_ITS ---
Exam(s) US ABDOMEN EXAM: US ABDOMEN CLINICAL HISTORY: gram negative sepsis, bladder cancer TECHNIQUE: Ultrasound of complete upper abdomen performed using standard protocol. COMPARISON: CT CT ABDOMEN PELVIS W from 06/17/2023 There are no more recent ultrasound exams available there FINDINGS: There is no ascites evident. LIVER: There are no hepatic lesions evident nor obvious dilatation of intrahepatic ducts. GALLBLADDER/BILIARY: There is abnormal density in the gallbladder which has the appearance of sludge versus mass, most probably the former given that the gallbladder. Unremarkable on CT scan of 024. The common hepatic duct isnot dilated, measuring 5mm at the level of justus hepatis. PANCREAS: There is no evidence of pancreatic mass nor dilatation of the pancreatic duct. SPLEEN: The spleen is not enlarged and there are no intrasplenic lesions evident. KIDNEYS: There is a cyst in left kidney noted which measures 4 cm, as seen on prior CT scan of June 2023. No solid renal masses seen on these images but there appears to be mild hydronephrosis on the left side. No obvious hydronephrosis on the right side. No obvious intrarenal calculi. ABDOMINAL AORTA: There is no evidence of abdominal aortic aneurysm. IVC: Normal diameter where visualized. IMPRESSION: 1. Prominent sludge versus mass in the gallbladder lumen. I suspect this is sludge given that there was no obvious abnormality within the gallbladder lumen on CT scan of 06/17/2023. CBD is not dilate d. 2. Mild left-sided hydronephrosis. Benign 4 cm cyst in left ovary, seen on prior CT scan June 2023 . 3. There is no ascites. DATA REPOSITORY:
[2023-10-12] MEDS: Lactated Ringers 1,000 ML 100 ML IV ×3 (00:20→21:30)
[2023-10-12] MEDS: ACETAMINOPHEN 1,000 MG/100 ML BTL 400 MG IVPB ×2 (00:20→11:59)
[2023-10-12] MEDS: CEFEPIME 2 GM in Normal Saline 100 ML IVPB (00:20)
[2023-10-12] MEDS: guaiFENesin/D-METHORPHAN HB 5 ML CUP 10 ML PO (01:04)
[2023-10-12] MEDS: MORPHine 4 MG/ML SYR IVP (01:04)
[2023-10-12] MEDS: MAGNESIUM SULFATE 2 GM/50 ML BAG IVINF (01:05)
--- NOTE | 2023-10-12 01:22 | NUR.NOTE ---
Nursing Note: On arrival pt was febrile at 38.2 C, presented with severe body wide shakes and was barely responsive. After administering acetaminophen pt shakes began to subside and pt was able to make simple responses though he was still confused with no recent memory of events.
[2023-10-12 06:55] LABS: HCT 28.2 % (40.0-50.0); HGB 8.7 g/dL (13.5-17.5); MCH 27.5 pg (27.0-33.0); MCHC 30.9 % (32.0-36.0); MCV 89 fL (80-95); MPV 11.2 fL (8.0-11.0); Platelet Count 278 10^3/uL (130-400); RBC 3.16 10^6/uL (4.36-5.78); RDW 15.7 % (11.8-14.1); RDW-SD 51.3 fL
[2023-10-12 07:16] LABS: Anion Gap 12.3 mmol/L (3-11); BUN 42 mg/dL (7-18); CO2 22.7 mmol/L (21.0-32.0); CREATININE 3.1 mg/dL (0.70-1.30); Calcium 10.3 mg/dL (8.5-10.1); Chloride 109 mmol/L (98-107); Estimated GFR 20.57 (mL/min/1.73m2); Glucose 184 mg/dL (74-106); Magnesium 2.2 mg/dL (1.8-2.4); Sodium 144 mmol/L (136-145)
[2023-10-12 07:30] LABS: WBC 35.22 10^3/uL (4.4-10.8)
[2023-10-12] MEDS: Apixaban 5 MG TAB PO ×2 (10:11→20:42)
[2023-10-12] MEDS: CEFEPIME 1 GM in Normal Saline 50 ML IVPB (11:20)
--- NOTE | 2023-10-12 11:30 | DI.US_ITS ---
APPROVED REPORT EXAM: Comprehensive 2D, Doppler, and color-flow Echocardiogram Patient Location: In-Patient Room/Bed: 222 Document Specialist: Fernandez Carrillo RDCS (AE) Indications: Elevated BNP, dilated LV Conclusion Normal left-ventricular wall thickness and chamber size. Ejection fraction is 45%. There is global hypokinesis Normal right ventricular size and function Both atria are normal in size Trileaflet aortic valve with trace regurgitation Normal mitral valve with mild regurgitation Mild tricuspid regurgitation, estimated right ventricular systolic pressure is 21 mmHg Ascending aorta measures 3.6 cm Wall motion Left Ventricle The left ventricle is normal size. Left ventricular systolic function is mildly decreased. There is n ormal left ventricular wall thickness. There is global hypokinesis of the left ventricle. There is no ventricular septal defect visualized. LVEF is 45%. Right Ventricle The right ventricle is normal size. The right ventricular systolic function is normal. Atria The left atrium size is normal. The right atrium size is normal. The interatrial septum is intact wit h no evidence for an atrial septal defect. Aortic Valve The aortic valve is normal in structure. There is no aortic valvular stenosis. Trace aortic regurgita tion. Mitral Valve The mitral valve is normal in structure. No evidence of mitral valve stenosis. Mild mitral regurgitat ion. Tricuspid Valve The tricuspid valve is normal in structure. There is no tricuspid valve stenosis. Mild tricuspid regu rgitation. The RVSP is 21.6 mmHg. Pulmonic Valve The pulmonary valve is normal in structure. There is no pulmonic valvular stenosis. Mild pulmonic reg urgitation. Great Vessels The aortic root is normal in size. The ascending aorta is mildly dilated. Aortic arch is normal in ca liber. IVC is normal in size and collapses >50% with inspiration. Pericardium There is no pericardial effusion. 2D Dimensions IVSD d PLAX 0.60 cm M: 0.6-1.2 Ao Root d 3.59 cm M: 3.1 - 3.7 LVPW d PLAX 0.65 cm M: 0.6 - 1.2 Ao Asc Diam d 3.60 cm M: 2.6 - 3.4 LVID d PLAX 5.57 cm M: 4.2 - 5.8 LVDs 4.33 cm M: 2.5 - 4.0 LV EF Teichholz 44.4 % FS 22.30 % LV EDV (Teich) 151.8 mL LV ESV (Teich) 84.4 mL Stroke Vol Index (Teich) 34.95 M-Mode TAPSE 1.68 cm (M/F) >1.7 Auto EF LV EDV A4C 167.5 mL LV EDV A2C 168.0 mL LV EDV BP 168.3 mL LV ESV A4C 90.8 mL LV ESV A2C 92.7 mL LV ESV BP 92.0 mL LVEF(%) A4C 45.8 % LVEF(%) A2C 44.8 % LVEF(%) BP 45.4 % LV SV A4C 76.7 ml LV SV A2C 75.2 ml LV SV BP 76.3 ml LV CO A4C 6.0 L/min LV CO A2C 5.6 L/min LV CO BP 5.8 L/min HR A4C 78.60 BPM HR A2C 73.92 BPM LV EDV Index (BP) LA Volume LA Length A4C 5.7 cm LA Length A2C 5.5 cm LA Area A4C s 15.81 cm2 LA Area A2C s 20.58 cm2 LA Vol A4C A-L 37.22 mL LA Vol A2C A-L 65.72 mL LA Vol Biplane A-L 50.5 mL LA Vol/BSA A4C A-L LA Vol/BSA A2C A-L LA Vol/BSA BP A-L 26.2 mL/m2 LA Vol A4C MOD 34.9 mL LA Vol A2C MOD 64.0 mL LA Vol BP MOD 48.0 mL RA Volume RA Area A4C 10.6 cm2 RA ESV A4C (A-L) 27.4mL RA Vol/BSA A4C A-L RA Length A4C 3.5 cm RA ESV A4C (MOD) 24.8mL LV Diastology MV E' medial 0.066 (>0.07 m/s) MV E Vmax 0.45 (0.4-1.3 m/s) MV E/E' MED 6.78 (<14) MV A Vmax 0.60 (0.4-1.3 m/s) MV E' lateral 0.087 (>0.1 m/s) E/A Ratio 0.8 MV E/E' LAT 5.18 (<14) MV E' Average 0.077 m/s MV E/E'(average) 5.87 Aortic Valve AoV Vmax 1.03 m/s LVOT Diam s 2.25 cm AoV Peak Grad 4.2 mmHg AV Regurg Peak Gr. 4.21 mmHg AoV VTI 0.224 m AoV Mean Jesu. 0.81 m/s AoV Mean Grad 2.9 mmHg Mitral Valve MV DT 160 (160-240 msec) Pulmonary Valve PV Vmax 0.88 (0.5-1.5 m/s) RVOT Vmax 0.42 m/s PV Peak Grad 3.1 mmHg RVOT Peak Gr. 0.7 mmHg PV Mean Jesu 0.64 m/s RVOT VTI 0.088 m PV Mean Grad 1.7 mmHg RVOT Mean Gr. 0.5 mmHg Tricuspid Valve RA Pressure 3.00 mmHg TR Vmax 2.15 m/s TR Peak Grad 18.5 mmHg RVSP (TR) 21.6 mmHg
[2023-10-12 11:38] LABS: Bilirubin Negative (Negative); Blood Moderate (Negative); Clarity Clear (Clear); Glucose Negative (Negative); Ketones Negative (Negative); Leukocyte Esterase Negative (Negative); Nitrite Negative (Negative); Urobilinogen 0.2 mg/dL (Up to 0.2)
[2023-10-12 11:43] LABS: Bilirubin Large (Negative); Blood Large (Negative); Clarity Cloudy (Clear); Glucose Negative (Negative); Ketones Trace mg/dL (Negative); Leukocyte Esterase Large (Negative); Nitrite Positive (Negative); pH 6.5 (5-8)
[2023-10-12 12:08] LABS: WBC 0-2 HPF (0-5)
[2023-10-12 12:09] LABS: Bacteria Few HPF (Negative); C & S Indicated? No; Casts Negative LPF (Negative); Crystals Negative HPF (Negative); Epithelial Cells Rare HPF (Negative); Mucus Trace (Negative); Other Cells Negative (Negative)
[2023-10-12 12:11] LABS: Epithelial Cells Negative HPF (Negative); Other Cells Negative (Negative); RBC >50 HPF (0-2); WBC Negative HPF (0-5)
[2023-10-12 12:12] LABS: Bacteria Many HPF (Negative); C & S Indicated? No; Casts Negative LPF (Negative); Crystals Negative HPF (Negative); Mucus Negative (Negative)
--- NOTE | 2023-10-12 12:12 | PGE_ITS ---
Date of Service Date of service: 10/12/23 Time of Service: 12:12 Assessment and Plan Assessment and plan (1) Septic shock: Status: Acute Assessment and plan: -patient met criteria for septic shock on admission with HR of ~100, WBC 21, elevated trop of about 61, GLADYS with Cr 2.9 (baseline about 1.2), initial lactic acid of 2.3 (which improved to 1.3) and persistent hypotension despite adequate fluid rehydration requiring levophed to maintain MAP >65 with source of infection being UTI (now known gram negative bacteremia) and CAP -patient had been on as much as 5mcg of levophed, now down to about 3 on AM 8 -started on vanc and cefepime in the ED -continue cefepime -vanc discontinued given gram negative bacteremia -f/u final blood and urine culture results (2) CAP (community acquired pneumonia): Status: Acute Assessment and plan: -as noted above (3) Acute respiratory failure with hypoxia: Status: Acute Assessment and plan: -secondary to septic shock and CAP as noted above -required as much as 6L NC overnight, now down to 2L NC -continue to wean O2 as tolerated with goal O2 sat >92% (4) UTI (urinary tract infection): Status: Acute Assessment and plan: -as noted above (5) Elevated troponin: Status: Acute Assessment and plan: -likely type II NSTEMI due to septic shock as noted above (6) Acute kidney injury superimposed on CKD: Status: Acute Assessment and plan: -secondary to septic shocks and UTI -also, possibly clogged or malfunctioning right nephrostomy tube may be contributing as well -see below for details (7) Afib: Status: Chronic Assessment and plan: -continue home eliquis and toprol XL 125mg (8) Primary bladder malignant neoplasm: Status: Acute Assessment and plan: -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 Exam Narrative Exam Narrative: acutely ill appearing older gentleman laying in bed in no acute distress, somnolent but awakens to verbal stimuli but is non-verbal at this time, heart irregularly irregular, rate ~90bpm, lungs CTAB, abdomen soft, non-tender, non- distended, clear urine from right nephrostomy tube, clots and blood in left nephrostomy tube Objective Last Vital Signs Temp 97.2 F L 10/12/23 11:51 Pulse 82 10/12/23 11:51 Resp 24 10/12/23 11:51 BP 92/68 L 10/12/23 11:51 Pulse Ox 92 10/12/23 11:51 Laboratory Results - last 24 hr 10/11/23 10/11/23 10/11/23 15:41 16:00 18:30 WBC 21.54 H RBC 3.51 L Hgb 9.5 L Hct 31.0 L MCV 88 MCH 27.1 MCHC 30.6 L RDW 15.6 H Plt Count 369 MPV 10.2 Immature Gran % 0.9 Neutrophils % 88.3 Lymphocytes % 6.8 Monocytes % 3.4 Eosinophils % 0.2 Basophils % 0.4 Nucleated RBC % 0.0 Absolute Neutrophils 19.02 H Absolute Lymphocytes 1.46 Absolute Monocytes 0.73 Absolute Eosinophils 0.04 Absolute Basophils 0.09 PT 13.7 H INR 1.4 H APTT 45.1 H VBG pH 7.39 VBG pCO2 45 VBG pO2 20 VBG HCO3 27 VBG Total CO2 26 VBG O2 Saturation 28 VBG Base Excess 2 VBG Lactate 1.3 Sodium 141 Potassium 4.5 Chloride 106 Carbon Dioxide 26.9 Anion Gap 8.1 BUN 35 H Creatinine 2.9 H Est GFR (CKD-EPI 2020) 22.29 Glucose 124 H Calcium 10.8 H Magnesium 1.4 L Total Bilirubin 0.92 AST 27 ALT 33 Alkaline Phosphatase 317 H Troponin I 61 H NT-Pro-B Natriuret Pep 22440 H Total Protein 7.5 Albumin 1.8 L TSH 1.94 Urine Color Yellow Urine Clarity Sl Cloudy Urine pH 5.0 Ur Specific [place] 1.015 Urine Protein 30 H Urine Ketones Negative Urine Blood Large H Urine Nitrite Negative Urine Bilirubin Negative Urine Urobilinogen 0.2 Ur Leukocyte Esterase Negative Urine RBC 10-20 H Urine WBC 3-5 Ur Epithelial Cells Negative Urine Crystals Few Amorphous Urine Bacteria Few Urine Casts Negative Urine Mucus Trace Urine Other Ur Culture Indicated? No Urine Glucose Negative COVID-19 Source Nasopharynx SARS-CoV-2 (PCR) Negative Influenza Type A (PCR) Negative Influenza Type B (PCR) Negative RSV (PCR) Negative 10/11/23 10/11/23 10/12/23 19:40 21:10 05:45 WBC 35.22 H* RBC 3.16 L Hgb 8.7 L Hct 28.2 L MCV 89 MCH 27.5 MCHC 30.9 L RDW 15.7 H Plt Count 278 MPV 11.2 H Immature Gran % Neutrophils % Lymphocytes % Monocytes % Eosinophils % Basophils % Nucleated RBC % Absolute Neutrophils Absolute Lymphocytes Absolute Monocytes Absolute Eosinophils Absolute Basophils PT INR APTT VBG pH VBG pCO2 VBG pO2 VBG HCO3 VBG Total CO2 VBG O2 Saturation VBG Base Excess VBG Lactate Sodium 144 Potassium 4.0 Chloride 109 H Carbon Dioxide 22.7 Anion Gap 12.3 H BUN 42 H Creatinine 3.1 H Est GFR (CKD-EPI 2020) 20.57 Glucose 184 H Calcium 10.3 H Magnesium 2.2 Total Bilirubin AST ALT Alkaline Phosphatase Troponin I 52 NT-Pro-B Natriuret Pep Total Protein Albumin TSH Urine Color Dark Yellow Urine Clarity Sl Cloudy Urine pH 5.5 Ur Specific [place] 1.015 Urine Protein 30 H Urine Ketones Negative Urine Blood Moderate H Urine Nitrite Negative Urine Bilirubin Negative Urine Urobilinogen 0.2 Ur Leukocyte Esterase Negative Urine RBC 10-20 H Urine WBC 0-2 Ur Epithelial Cells Negative Urine Crystals Negative Urine Bacteria Few Urine Casts Negative Urine Mucus Trace Urine Other Rare Yeast Ur Culture Indicated? No Urine Glucose Negative COVID-19 Source SARS-CoV-2 (PCR) Influenza Type A (PCR) Influenza Type B (PCR) RSV (PCR) 10/12/23 10/12/23 10/12/23 05:45 10:00 10:00 WBC RBC Hgb Hct MCV MCH MCHC RDW Plt Count MPV Immature Gran % Neutrophils % Lymphocytes % Monocytes % Eosinophils % Basophils % Nucleated RBC % Absolute Neutrophils Absolute Lymphocytes Absolute Monocytes Absolute Eosinophils Absolute Basophils PT INR APTT VBG pH VBG pCO2 VBG pO2 VBG HCO3 VBG Total CO2 VBG O2 Saturation VBG Base Excess VBG Lactate Sodium Potassium Chloride Carbon Dioxide Anion Gap BUN Creatinine Est GFR (CKD-EPI 2020) Glucose Calcium Magnesium Cancelled Total Bilirubin AST ALT Alkaline Phosphatase Troponin I NT-Pro-B Natriuret Pep Total Protein Albumin TSH Urine Color Red Yellow Urine Clarity Cloudy Urine pH Ur Specific [place] Urine Protein Urine Ketones Urine Blood Urine Nitrite Urine Bilirubin Urine Urobilinogen Ur Leukocyte Esterase Urine RBC Urine WBC Ur Epithelial Cells Urine Crystals Urine Bacteria Urine Casts Urine Mucus Urine Other Ur Culture Indicated? Urine Glucose COVID-19 Source SARS-CoV-2 (PCR) Influenza Type A (PCR) Influenza Type B (PCR) RSV (PCR) 10/12/23 10/12/23 10/12/23 10:00 10:00 10:00 WBC RBC Hgb Hct MCV MCH MCHC RDW Plt Count MPV Immature Gran % Neutrophils % Lymphocytes % Monocytes % Eosinophils % Basophils % Nucleated RBC % Absolute Neutrophils Absolute Lymphocytes Absolute Monocytes Absolute Eosinophils Absolute Basophils PT INR APTT VBG pH VBG pCO2 VBG pO2 VBG HCO3 VBG Total CO2 VBG O2 Saturation VBG Base Excess VBG Lactate Sodium Potassium Chloride Carbon Dioxide Anion Gap BUN Creatinine Est GFR (CKD-EPI 2020) Glucose Calcium Magnesium Total Bilirubin AST ALT Alkaline Phosphatase Troponin I NT-Pro-B Natriuret Pep Total Protein Albumin TSH Urine Color Urine Clarity Clear Urine pH 6.5 5.0 Ur Specific [place] 1.020 1.020 Urine Protein >=300 H Urine Ketones Urine Blood Urine Nitrite Urine Bilirubin Urine Urobilinogen Ur Leukocyte Esterase Urine RBC Urine WBC Ur Epithelial Cells Urine Crystals Urine Bacteria Urine Casts Urine Mucus Urine Other Ur Culture Indicated? Urine Glucose COVID-19 Source SARS-CoV-2 (PCR) Influenza Type A (PCR) Influenza Type B (PCR) RSV (PCR) 10/12/23 10/12/23 10/12/23 10:00 10:00 10:00 WBC RBC Hgb Hct MCV MCH MCHC RDW Plt Count MPV Immature Gran % Neutrophils % Lymphocytes % Monocytes % Eosinophils % Basophils % Nucleated RBC % Absolute Neutrophils Absolute Lymphocytes Absolute Monocytes Absolute Eosinophils Absolute Basophils PT INR APTT VBG pH VBG pCO2 VBG pO2 VBG HCO3 VBG Total CO2 VBG O2 Saturation VBG Base Excess VBG Lactate Sodium Potassium Chloride Carbon Dioxide Anion Gap BUN Creatinine Est GFR (CKD-EPI 2020) Glucose Calcium Magnesium Total Bilirubin AST ALT Alkaline Phosphatase Troponin I NT-Pro-B Natriuret Pep Total Protein Albumin TSH Urine Color Urine Clarity Urine pH Ur Specific [place] Urine Protein 30 H Urine Ketones Trace H Negative Urine Blood Large H Moderate H Urine Nitrite Positive H Urine Bilirubin Urine Urobilinogen Ur Leukocyte Esterase Urine RBC Urine WBC Ur Epithelial Cells Urine Crystals Urine Bacteria Urine Casts Urine Mucus Urine Other Ur Culture Indicated? Urine Glucose COVID-19 Source SARS-CoV-2 (PCR) Influenza Type A (PCR) Influenza Type B (PCR) RSV (PCR) 10/12/23 10/12/23 10/12/23 10:00 10:00 10:00 WBC RBC Hgb Hct MCV MCH MCHC RDW Plt Count MPV Immature Gran % Neutrophils % Lymphocytes % Monocytes % Eosinophils % Basophils % Nucleated RBC % Absolute Neutrophils Absolute Lymphocytes Absolute Monocytes Absolute Eosinophils Absolute Basophils PT INR APTT VBG pH VBG pCO2 VBG pO2 VBG HCO3 VBG Total CO2 VBG O2 Saturation VBG Base Excess VBG Lactate Sodium Potassium Chloride Carbon Dioxide Anion Gap BUN Creatinine Est GFR (CKD-EPI 2020) Glucose Calcium Magnesium Total Bilirubin AST ALT Alkaline Phosphatase Troponin I NT-Pro-B Natriuret Pep Total Protein Albumin TSH Urine Color Urine Clarity Urine pH Ur Specific [place] Urine Protein Urine Ketones Urine Blood Urine Nitrite Negative Urine Bilirubin Large H Negative Urine Urobilinogen 2.0 H 0.2 Ur Leukocyte Esterase Large H Urine RBC Urine WBC Ur Epithelial Cells Urine Crystals Urine Bacteria Urine Casts Urine Mucus Urine Other Ur Culture Indicated? Urine Glucose COVID-19 Source SARS-CoV-2 (PCR) Influenza Type A (PCR) Influenza Type B (PCR) RSV (PCR) 10/12/23 10/12/23 10/12/23 10:00 10:00 10:00 WBC RBC Hgb Hct MCV MCH MCHC RDW Plt Count MPV Immature Gran % Neutrophils % Lymphocytes % Monocytes % Eosinophils % Basophils % Nucleated RBC % Absolute Neutrophils Absolute Lymphocytes Absolute Monocytes Absolute Eosinophils Absolute Basophils PT INR APTT VBG pH VBG pCO2 VBG pO2 VBG HCO3 VBG Total CO2 VBG O2 Saturation VBG Base Excess VBG Lactate Sodium Potassium Chloride Carbon Dioxide Anion Gap BUN Creatinine Est GFR (CKD-EPI 2020) Glucose Calcium Magnesium Total Bilirubin AST ALT Alkaline Phosphatase Troponin I NT-Pro-B Natriuret Pep Total Protein Albumin TSH Urine Color Urine Clarity Urine pH Ur Specific [place] Urine Protein Urine Ketones Urine Blood Urine Nitrite Urine Bilirubin Urine Urobilinogen Ur Leukocyte Esterase Negative Urine RBC >50 H 10-20 H Urine WBC Negative 0-2 Ur Epithelial Cells Negative Urine Crystals Urine Bacteria Urine Casts Urine Mucus Urine Other Ur Culture Indicated? Urine Glucose COVID-19 Source SARS-CoV-2 (PCR) Influenza Type A (PCR) Influenza Type B (PCR) RSV (PCR) 10/12/23 10/12/23 10/12/23 10:00 10:00 10:00 WBC RBC Hgb Hct MCV MCH MCHC RDW Plt Count MPV Immature Gran % Neutrophils % Lymphocytes % Monocytes % Eosinophils % Basophils % Nucleated RBC % Absolute Neutrophils Absolute Lymphocytes Absolute Monocytes Absolute Eosinophils Absolute Basophils PT INR APTT VBG pH VBG pCO2 VBG pO2 VBG HCO3 VBG Total CO2 VBG O2 Saturation VBG Base Excess VBG Lactate Sodium Potassium Chloride Carbon Dioxide Anion Gap BUN Creatinine Est GFR (CKD-EPI 2020) Glucose Calcium Magnesium Total Bilirubin AST ALT Alkaline Phosphatase Troponin I NT-Pro-B Natriuret Pep Total Protein Albumin TSH Urine Color Urine Clarity Urine pH Ur Specific [place] Urine Protein Urine Ketones Urine Blood Urine Nitrite Urine Bilirubin Urine Urobilinogen Ur Leukocyte Esterase Urine RBC Urine WBC Ur Epithelial Cells Rare Urine Crystals Negative Negative Urine Bacteria Many Few Urine Casts Negative Urine Mucus Urine Other Ur Culture Indicated? Urine Glucose COVID-19 Source SARS-CoV-2 (PCR) Influenza Type A (PCR) Influenza Type B (PCR) RSV (PCR) 10/12/23 10/12/23 10/12/23 10:00 10:00 10:00 WBC RBC Hgb Hct MCV MCH MCHC RDW Plt Count MPV Immature Gran % Neutrophils % Lymphocytes % Monocytes % Eosinophils % Basophils % Nucleated RBC % Absolute Neutrophils Absolute Lymphocytes Absolute Monocytes Absolute Eosinophils Absolute Basophils PT INR APTT VBG pH VBG pCO2 VBG pO2 VBG HCO3 VBG Total CO2 VBG O2 Saturation VBG Base Excess VBG Lactate Sodium Potassium Chloride Carbon Dioxide Anion Gap BUN Creatinine Est GFR (CKD-EPI 2020) Glucose Calcium Magnesium Total Bilirubin AST ALT Alkaline Phosphatase Troponin I NT-Pro-B Natriuret Pep Total Protein Albumin TSH Urine Color Urine Clarity Urine pH Ur Specific [place] Urine Protein Urine Ketones Urine Blood Urine Nitrite Urine Bilirubin Urine Urobilinogen Ur Leukocyte Esterase Urine RBC Urine WBC Ur Epithelial Cells Urine Crystals Urine Bacteria Urine Casts Negative Urine Mucus Negative Trace Urine Other Negative Negative Ur Culture Indicated? No Urine Glucose COVID-19 Source SARS-CoV-2 (PCR) Influenza Type A (PCR) Influenza Type B (PCR) RSV (PCR) 08/05/24 08/05/24 10:00 10:00 WBC RBC Hgb Hct MCV MCH MCHC RDW Plt Count MPV Immature Gran % Neutrophils % Lymphocytes % Monocytes % Eosinophils % Basophils % Nucleated RBC % Absolute Neutrophils Absolute Lymphocytes Absolute Monocytes Absolute Eosinophils Absolute Basophils PT INR APTT VBG pH VBG pCO2 VBG pO2 VBG HCO3 VBG Total CO2 VBG O2 Saturation VBG Base Excess VBG Lactate Sodium Potassium Chloride Carbon Dioxide Anion Gap BUN Creatinine Est GFR (CKD-EPI 2020) Glucose Calcium Magnesium Total Bilirubin AST ALT Alkaline Phosphatase Troponin I NT-Pro-B Natriuret Pep Total Protein Albumin TSH Urine Color Urine Clarity Urine pH Ur Specific [place] Urine Protein Urine Ketones Urine Blood Urine Nitrite Urine Bilirubin Urine Urobilinogen Ur Leukocyte Esterase Urine RBC Urine WBC Ur Epithelial Cells Urine Crystals Urine Bacteria Urine Casts Urine Mucus Urine Other Ur Culture Indicated? No Urine Glucose Negative Negative COVID-19 Source SARS-CoV-2 (PCR) Influenza Type A (PCR) Influenza Type B (PCR) RSV (PCR) Time Spent with Patient Time Spent with Patient: >50 minutes Time was spent: preparing to see the patient(eg.review tests), obtaining and/or reviewing separately otained hiistory, ordering medications,tests, procedures, referring, communicating with other health care aid, indepentently interpreting results, counseling the patient and care coordination
--- NOTE | 2023-10-12 13:31 | PUCC_ITS ---
General Date of Service Date of service: 10/12/23 Time of Service: 13:31 Admit Date Admit Date: 10/10 Reason for Admission to ICU: Septic Shock 2/2 to Ecoli bacteremia Assessment and Plan Assessment and plan (1) Septic shock: Status: Acute Assessment and plan: Septic shock 2/2 to Ecoli bacteremia and likely CAP. Still requiring low dose levophed but mentation has improved as well as MAP (2) CAP (community acquired pneumonia): Status: Acute Assessment and plan: -as noted above Qualifiers: Laterality: unspecified laterality Qualified Code(s): J18.9 - Pneumonia, unspecified organism (3) Acute respiratory failure with hypoxia: Status: Acute Assessment and plan: -required as much as 6L NC overnight, now down to 2L NC -continue to wean O2 as tolerated with goal O2 sat >92% (4) UTI (urinary tract infection): Status: Acute Assessment and plan: -as noted above Qualifiers: Urinary tract infection type: site unspecified Hematuria presence: without hematuria Qualified Code(s): N39.0 - Urinary tract infection, site not specified (5) Elevated troponin: Status: Acute Assessment and plan: -likely type II NSTEMI due to septic shock as noted above (6) Acute kidney injury superimposed on CKD: Status: Acute Assessment and plan: -secondary to septic shocks and UTI -also, possibly clogged or malfunctioning right nephrostomy tube may be contributing as well Needs Urology consult Abd US Monitor UO (7) Afib: Status: Chronic Assessment and plan: -continue home eliquis and toprol XL 125mg Qualifiers: Atrial fibrillation type: longstanding persistent Qualified Code(s): I48.11 - Longstanding persistent atrial fibrillation (8) Primary bladder malignant neoplasm: Status: Acute Assessment and plan: -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 HFpEF Recommendations I&O: Intake & Output 10/09/23 10/10/23 10/11/23 10/12/23 23:59 23:59 23:59 23:59 Intake Total 9749.687 / 2609.687 1321.937 / 1321.937 Output Total 800 / 800 1052 / 1052 Balance 1809.687 / 1809.687 269.937 / 269.937 Weight 76.2 kg Code Status: Resuscitation Status Full Code Subjective Critical and life-threatening events over the past 24 hours: Admitted w/ septic shock still on levophed 2mcg/kg/min Exam Narrative Exam Narrative: Somnolent but easily arousable Lungs CTa BL Cv Irreg Irreg S1S2 ext noedema Abd soft BS+, bilat nephrostomy tubes Most Recent VS/Results Last Vital Signs Temp 36.2 C L 10/12/23 11:51 Pulse 82 10/12/23 11:51 Resp 24 10/12/23 11:51 BP 92/68 L 10/12/23 11:51 Pulse Ox 92 10/12/23 11:51 Laboratory Results - last 24 hr 10/11/23 10/11/23 10/11/23 15:41 16:00 18:30 WBC 21.54 H RBC 3.51 L Hgb 9.5 L Hct 31.0 L MCV 88 MCH 27.1 MCHC 30.6 L RDW 15.6 H Plt Count 369 MPV 10.2 Immature Gran % 0.9 Neutrophils % 88.3 Lymphocytes % 6.8 Monocytes % 3.4 Eosinophils % 0.2 Basophils % 0.4 Nucleated RBC % 0.0 Absolute Neutrophils 19.02 H Absolute Lymphocytes 1.46 Absolute Monocytes 0.73 Absolute Eosinophils 0.04 Absolute Basophils 0.09 PT 13.7 H INR 1.4 H APTT 45.1 H VBG pH 7.39 VBG pCO2 45 VBG pO2 20 VBG HCO3 27 VBG Total CO2 26 VBG O2 Saturation 28 VBG Base Excess 2 VBG Lactate 1.3 Sodium 141 Potassium 4.5 Chloride 106 Carbon Dioxide 26.9 Anion Gap 8.1 BUN 35 H Creatinine 2.9 H Est GFR (CKD-EPI 2020) 22.29 Glucose 124 H Calcium 10.8 H Magnesium 1.4 L Total Bilirubin 0.92 AST 27 ALT 33 Alkaline Phosphatase 317 H Troponin I 61 H NT-Pro-B Natriuret Pep 33968 H Total Protein 7.5 Albumin 1.8 L TSH 1.94 Urine Color Yellow Urine Clarity Sl Cloudy Urine pH 5.0 Ur Specific Hernandez 1.015 Urine Protein 30 H Urine Ketones Negative Urine Blood Large H Urine Nitrite Negative Urine Bilirubin Negative Urine Urobilinogen 0.2 Ur Leukocyte Esterase Negative Urine RBC 10-20 H Urine WBC 3-5 Ur Epithelial Cells Negative Urine Crystals Few Amorphous Urine Bacteria Few Urine Casts Negative Urine Mucus Trace Urine Other Ur Culture Indicated? No Urine Glucose Negative COVID-19 Source Nasopharynx SARS-CoV-2 (PCR) Negative Influenza Type A (PCR) Negative Influenza Type B (PCR) Negative RSV (PCR) Negative 10/11/23 10/11/23 10/12/23 19:40 21:10 05:45 WBC 35.22 H* RBC 3.16 L Hgb 8.7 L Hct 28.2 L MCV 89 MCH 27.5 MCHC 30.9 L RDW 15.7 H Plt Count 278 MPV 11.2 H Immature Gran % Neutrophils % Lymphocytes % Monocytes % Eosinophils % Basophils % Nucleated RBC % Absolute Neutrophils Absolute Lymphocytes Absolute Monocytes Absolute Eosinophils Absolute Basophils PT INR APTT VBG pH VBG pCO2 VBG pO2 VBG HCO3 VBG Total CO2 VBG O2 Saturation VBG Base Excess VBG Lactate Sodium 144 Potassium 4.0 Chloride 109 H Carbon Dioxide 22.7 Anion Gap 12.3 H BUN 42 H Creatinine 3.1 H Est GFR (CKD-EPI 2020) 20.57 Glucose 184 H Calcium 10.3 H Magnesium 2.2 Total Bilirubin AST ALT Alkaline Phosphatase Troponin I 52 NT-Pro-B Natriuret Pep Total Protein Albumin TSH Urine Color Dark Yellow Urine Clarity Sl Cloudy Urine pH 5.5 Ur Specific Hernandez 1.015 Urine Protein 30 H Urine Ketones Negative Urine Blood Moderate H Urine Nitrite Negative Urine Bilirubin Negative Urine Urobilinogen 0.2 Ur Leukocyte Esterase Negative Urine RBC 10-20 H Urine WBC 0-2 Ur Epithelial Cells Negative Urine Crystals Negative Urine Bacteria Few Urine Casts Negative Urine Mucus Trace Urine Other Rare Yeast Ur Culture Indicated? No Urine Glucose Negative COVID-19 Source SARS-CoV-2 (PCR) Influenza Type A (PCR) Influenza Type B (PCR) RSV (PCR) 10/12/23 10/12/23 10/12/23 05:45 10:00 10:00 WBC RBC Hgb Hct MCV MCH MCHC RDW Plt Count MPV Immature Gran % Neutrophils % Lymphocytes % Monocytes % Eosinophils % Basophils % Nucleated RBC % Absolute Neutrophils Absolute Lymphocytes Absolute Monocytes Absolute Eosinophils Absolute Basophils PT INR APTT VBG pH VBG pCO2 VBG pO2 VBG HCO3 VBG Total CO2 VBG O2 Saturation VBG Base Excess VBG Lactate Sodium Potassium Chloride Carbon Dioxide Anion Gap BUN Creatinine Est GFR (CKD-EPI 2020) Glucose Calcium Magnesium Cancelled Total Bilirubin AST ALT Alkaline Phosphatase Troponin I NT-Pro-B Natriuret Pep Total Protein Albumin TSH Urine Color Red Yellow Urine Clarity Cloudy Urine pH Ur Specific Hernandez Urine Protein Urine Ketones Urine Blood Urine Nitrite Urine Bilirubin Urine Urobilinogen Ur Leukocyte Esterase Urine RBC Urine WBC Ur Epithelial Cells Urine Crystals Urine Bacteria Urine Casts Urine Mucus Urine Other Ur Culture Indicated? Urine Glucose COVID-19 Source SARS-CoV-2 (PCR) Influenza Type A (PCR) Influenza Type B (PCR) RSV (PCR) 10/12/23 10/12/23 10/12/23 10:00 10:00 10:00 WBC RBC Hgb Hct MCV MCH MCHC RDW Plt Count MPV Immature Gran % Neutrophils % Lymphocytes % Monocytes % Eosinophils % Basophils % Nucleated RBC % Absolute Neutrophils Absolute Lymphocytes Absolute Monocytes Absolute Eosinophils Absolute Basophils PT INR APTT VBG pH VBG pCO2 VBG pO2 VBG HCO3 VBG Total CO2 VBG O2 Saturation VBG Base Excess VBG Lactate Sodium Potassium Chloride Carbon Dioxide Anion Gap BUN Creatinine Est GFR (CKD-EPI 2020) Glucose Calcium Magnesium Total Bilirubin AST ALT Alkaline Phosphatase Troponin I NT-Pro-B Natriuret Pep Total Protein Albumin TSH Urine Color Urine Clarity Clear Urine pH 6.5 5.0 Ur Specific Hernandez 1.020 1.020 Urine Protein >=300 H Urine Ketones Urine Blood Urine Nitrite Urine Bilirubin Urine Urobilinogen Ur Leukocyte Esterase Urine RBC Urine WBC Ur Epithelial Cells Urine Crystals Urine Bacteria Urine Casts Urine Mucus Urine Other Ur Culture Indicated? Urine Glucose COVID-19 Source SARS-CoV-2 (PCR) Influenza Type A (PCR) Influenza Type B (PCR) RSV (PCR) 10/12/23 10/12/23 10/12/23 10:00 10:00 10:00 WBC RBC Hgb Hct MCV MCH MCHC RDW Plt Count MPV Immature Gran % Neutrophils % Lymphocytes % Monocytes % Eosinophils % Basophils % Nucleated RBC % Absolute Neutrophils Absolute Lymphocytes Absolute Monocytes Absolute Eosinophils Absolute Basophils PT INR APTT VBG pH VBG pCO2 VBG pO2 VBG HCO3 VBG Total CO2 VBG O2 Saturation VBG Base Excess VBG Lactate Sodium Potassium Chloride Carbon Dioxide Anion Gap BUN Creatinine Est GFR (CKD-EPI 2020) Glucose Calcium Magnesium Total Bilirubin AST ALT Alkaline Phosphatase Troponin I NT-Pro-B Natriuret Pep Total Protein Albumin TSH Urine Color Urine Clarity Urine pH Ur Specific Hernandez Urine Protein 30 H Urine Ketones Trace H Negative Urine Blood Large H Moderate H Urine Nitrite Positive H Urine Bilirubin Urine Urobilinogen Ur Leukocyte Esterase Urine RBC Urine WBC Ur Epithelial Cells Urine Crystals Urine Bacteria Urine Casts Urine Mucus Urine Other Ur Culture Indicated? Urine Glucose COVID-19 Source SARS-CoV-2 (PCR) Influenza Type A (PCR) Influenza Type B (PCR) RSV (PCR) 10/12/23 10/12/23 10/12/23 10:00 10:00 10:00 WBC RBC Hgb Hct MCV MCH MCHC RDW Plt Count MPV Immature Gran % Neutrophils % Lymphocytes % Monocytes % Eosinophils % Basophils % Nucleated RBC % Absolute Neutrophils Absolute Lymphocytes Absolute Monocytes Absolute Eosinophils Absolute Basophils PT INR APTT VBG pH VBG pCO2 VBG pO2 VBG HCO3 VBG Total CO2 VBG O2 Saturation VBG Base Excess VBG Lactate Sodium Potassium Chloride Carbon Dioxide Anion Gap BUN Creatinine Est GFR (CKD-EPI 2020) Glucose Calcium Magnesium Total Bilirubin AST ALT Alkaline Phosphatase Troponin I NT-Pro-B Natriuret Pep Total Protein Albumin TSH Urine Color Urine Clarity Urine pH Ur Specific Hernandez Urine Protein Urine Ketones Urine Blood Urine Nitrite Negative Urine Bilirubin Large H Negative Urine Urobilinogen 2.0 H 0.2 Ur Leukocyte Esterase Large H Urine RBC Urine WBC Ur Epithelial Cells Urine Crystals Urine Bacteria Urine Casts Urine Mucus Urine Other Ur Culture Indicated? Urine Glucose COVID-19 Source SARS-CoV-2 (PCR) Influenza Type A (PCR) Influenza Type B (PCR) RSV (PCR) 10/12/23 10/12/23 10/12/23 10:00 10:00 10:00 WBC RBC Hgb Hct MCV MCH MCHC RDW Plt Count MPV Immature Gran % Neutrophils % Lymphocytes % Monocytes % Eosinophils % Basophils % Nucleated RBC % Absolute Neutrophils Absolute Lymphocytes Absolute Monocytes Absolute Eosinophils Absolute Basophils PT INR APTT VBG pH VBG pCO2 VBG pO2 VBG HCO3 VBG Total CO2 VBG O2 Saturation VBG Base Excess VBG Lactate Sodium Potassium Chloride Carbon Dioxide Anion Gap BUN Creatinine Est GFR (CKD-EPI 2020) Glucose Calcium Magnesium Total Bilirubin AST ALT Alkaline Phosphatase Troponin I NT-Pro-B Natriuret Pep Total Protein Albumin TSH Urine Color Urine Clarity Urine pH Ur Specific Hernandez Urine Protein Urine Ketones Urine Blood Urine Nitrite Urine Bilirubin Urine Urobilinogen Ur Leukocyte Esterase Negative Urine RBC >50 H 10-20 H Urine WBC Negative 0-2 Ur Epithelial Cells Negative Urine Crystals Urine Bacteria Urine Casts Urine Mucus Urine Other Ur Culture Indicated? Urine Glucose COVID-19 Source SARS-CoV-2 (PCR) Influenza Type A (PCR) Influenza Type B (PCR) RSV (PCR) 10/12/23 10/12/23 10/12/23 10:00 10:00 10:00 WBC RBC Hgb Hct MCV MCH MCHC RDW Plt Count MPV Immature Gran % Neutrophils % Lymphocytes % Monocytes % Eosinophils % Basophils % Nucleated RBC % Absolute Neutrophils Absolute Lymphocytes Absolute Monocytes Absolute Eosinophils Absolute Basophils PT INR APTT VBG pH VBG pCO2 VBG pO2 VBG HCO3 VBG Total CO2 VBG O2 Saturation VBG Base Excess VBG Lactate Sodium Potassium Chloride Carbon Dioxide Anion Gap BUN Creatinine Est GFR (CKD-EPI 2020) Glucose Calcium Magnesium Total Bilirubin AST ALT Alkaline Phosphatase Troponin I NT-Pro-B Natriuret Pep Total Protein Albumin TSH Urine Color Urine Clarity Urine pH Ur Specific Hernandez Urine Protein Urine Ketones Urine Blood Urine Nitrite Urine Bilirubin Urine Urobilinogen Ur Leukocyte Esterase Urine RBC Urine WBC Ur Epithelial Cells Rare Urine Crystals Negative Negative Urine Bacteria Many Few Urine Casts Negative Urine Mucus Urine Other Ur Culture Indicated? Urine Glucose COVID-19 Source SARS-CoV-2 (PCR) Influenza Type A (PCR) Influenza Type B (PCR) RSV (PCR) 10/12/23 10/12/23 10/12/23 10:00 10:00 10:00 WBC RBC Hgb Hct MCV MCH MCHC RDW Plt Count MPV Immature Gran % Neutrophils % Lymphocytes % Monocytes % Eosinophils % Basophils % Nucleated RBC % Absolute Neutrophils Absolute Lymphocytes Absolute Monocytes Absolute Eosinophils Absolute Basophils PT INR APTT VBG pH VBG pCO2 VBG pO2 VBG HCO3 VBG Total CO2 VBG O2 Saturation VBG Base Excess VBG Lactate Sodium Potassium Chloride Carbon Dioxide Anion Gap BUN Creatinine Est GFR (CKD-EPI 2020) Glucose Calcium Magnesium Total Bilirubin AST ALT Alkaline Phosphatase Troponin I NT-Pro-B Natriuret Pep Total Protein Albumin TSH Urine Color Urine Clarity Urine pH Ur Specific Hernandez Urine Protein Urine Ketones Urine Blood Urine Nitrite Urine Bilirubin Urine Urobilinogen Ur Leukocyte Esterase Urine RBC Urine WBC Ur Epithelial Cells Urine Crystals Urine Bacteria Urine Casts Negative Urine Mucus Negative Trace Urine Other Negative Negative Ur Culture Indicated? No Urine Glucose COVID-19 Source SARS-CoV-2 (PCR) Influenza Type A (PCR) Influenza Type B (PCR) RSV (PCR) 10/12/23 10/12/23 10:00 10:00 WBC RBC Hgb Hct MCV MCH MCHC RDW Plt Count MPV Immature Gran % Neutrophils % Lymphocytes % Monocytes % Eosinophils % Basophils % Nucleated RBC % Absolute Neutrophils Absolute Lymphocytes Absolute Monocytes Absolute Eosinophils Absolute Basophils PT INR APTT VBG pH VBG pCO2 VBG pO2 VBG HCO3 VBG Total CO2 VBG O2 Saturation VBG Base Excess VBG Lactate Sodium Potassium Chloride Carbon Dioxide Anion Gap BUN Creatinine Est GFR (CKD-EPI 2020) Glucose Calcium Magnesium Total Bilirubin AST ALT Alkaline Phosphatase Troponin I NT-Pro-B Natriuret Pep Total Protein Albumin TSH Urine Color Urine Clarity Urine pH Ur Specific Hernandez Urine Protein Urine Ketones Urine Blood Urine Nitrite Urine Bilirubin Urine Urobilinogen Ur Leukocyte Esterase Urine RBC Urine WBC Ur Epithelial Cells Urine Crystals Urine Bacteria Urine Casts Urine Mucus Urine Other Ur Culture Indicated? No Urine Glucose Negative Negative COVID-19 Source SARS-CoV-2 (PCR) Influenza Type A (PCR) Influenza Type B (PCR) RSV (PCR) Review of Systems All systems reviewed & are unremarkable except as noted in HPI and below Time spent with patient Time spent in Critical Care: 35 Time spent in Critical care included: Coordination of care, Chart review, Documenting critically ill care and Time at immediate bedside
--- NOTE | 2023-10-12 15:11 | IN_ITS ---
PT Notes Visit Reasons: pneumonia, sepsis Inpatient Physical Therapy Evaluation Date: 10/12/23 Referring Doctor: Luna Joseph PT Orders: PT CONSULT: limited ability to ambulate Precautions: fall, standard Patient Profile/Admitting Diagnosis: Patient admitted to ICU for management of septic shock, CAP, acute respiratory failure, and afib, all in the presence of bladder cancer. Patient had recently been discharged from [facility] [place] to [facility] with goal of strengthening. Social History/Home Situation: Aníbal lives in a private home with his girlfriend. Has been at [facility] for the past week for strengthening following treatment at [facility] [place]. Is independent at baseline, but relying on FWW currently. Equipment Owned/DME: none Subjective: Aníbal provides brief verbal responses. Agreeable to getting up out of bed. Objective: General Observation: Aníbal is sleeping at initiation of session. He easily rouses, although falls back asleep on multiple occasions during bed exercises. Mental Status: Somnolent. Remains alert once sitting up out of bed. Struggles to answer questions for subjective history, deferring to girlfriend for responses. Unable to recall what town he lives in or whether he's used a device to walk in the past. Pain: denies Vital Signs: monitored by nursing. He does desaturate to 81% with transfer to chair. On supplemental O2 throughout. ROM: Right Upper Extremity: Shoulder flexion to 90*. Elbow motion 0-90*, limited by lines. Left Upper Extremity: Shoulder flexion 160*. Elbow motion 0-100*. Right Lower Extremity: WFL Left Lower Extremity: WFL Strength: Right Upper Extremity: Shoulder flexion 3-/5. Biceps 3-/5. Triceps 3+/5. [employer] is weak, but equal. Left Upper Extremity: Shoulder flexion 3-/5. Biceps 3-/5. Triceps 3+/5. Aluminum Boat Inspector is weak, but equal. Right Lower Extremity: Hip flexion 3/5 or greater. Quads 3/5 or greater. Ankle DF 4/5. Left Lower Extremity: Hip flexion 3/5 or greater. Quads 3/5 or greater. Ankle DF 4/5. Sensation: intact distally Bed Mobility/Transfers: supine-sit: min A sit-stand: min A with bed elevated stand-sit: min A for management of lines bed to chair: CGA with FWW Gait: Ambulates 3' with FWW, CGA to chair. Demonstrates narrow KEENAN and requires cues throughout for positioning and technique. Balance: Static Sitting: good Dynamic Sitting: fair Static Standing: fair Dynamic Standing: fair Special Tests: Mobility Limitations Standardized Measure [facility] AM-PAC 6 clicks Basic Mobility Inpatient Short Form: Raw Score: 16 CMS Score: 54% impairment Informed Consent/Education: Patient instructed in purpose of PT consult and plan of care. Treatment: Initial Evaluation (35084) Therapeutic Exercises (49015) Instructed in seated exercises, with need for cueing and redirection throughout. Requires cues for pacing to avoid oxygen desaturation. Seated ankle pumps 10x seated march 10x seated punches 10x seated crunch 5x LAQ 10x Assessment: Patient is a 72 year old male referred to physical therapy services with the diagnosis of sepsis. Patient presents with mobility impairments related to acute medical issues. He demonstrates the following impairment level findings: 1. Decreased RUE ROM 2. Decreased activity tolerance 3. Decreased level of alertness 4. Decreased balance Impairments are contributing to the following functional limitations: 1. unable to ambulate independently 2. unable to tolerate household distance ambulation 3. unable to independently perform bed mobility Patient is assessed as Moderate 60465 complexity based on the following: History: As above. Complicating factor of bladder cancer with ongoing treatment, in addition to acute medical issues including septic shock, CAP, acute respiratory failure, and afib Examination: functional limitations as noted above Presentation: evolving Decision Making: moderate Goals: Goals X1 week 1. Supine-Sit : supervision 2. Sit-Supine : supervision 3. Sit-Stand : supervision 4. Stand-Sit : supervision 5. Bed-Chair : supervision with FWW 6. Chair-Bed : supervision with FWW 7. Gait : CGA with FWW x 50' Plan of Care/Treatment Plan: 1-2x/day, 7 days/week x 1 week. Plan of care has been reviewed with the [employer] SAL[employer] ENGINEER providing the service under Physical Therapy direction. Initiate Physical Therapy intervention for strengthening, bed mobility, transfers, gait, stairs, balance training, use of assistive device. DISCHARGE RECOMMENDATIONS: SNF for continued rehabilitation TREATMENT CODE/TIME: 5835-9513 (32543, 62004) Dianelys Ramos, PT, DPT [facility] All Active Problems (Updated 10/12/23 @ 12:16 by Naldo Tai MD) Elevated brain natriuretic peptide (BNP) level (Acute) Acute respiratory failure with hypoxia (Acute) Afib (Chronic) Acute kidney injury superimposed on CKD (Acute) Elevated troponin (Acute) UTI (urinary tract infection) (Acute) CAP (community acquired pneumonia) (Acute) Septic shock (Acute) GLADYS (acute kidney injury) (Acute) Pneumonia (Acute) Septic shock (Acute) Hypomagnesemia (Acute) Sepsis (Acute) SVT (supraventricular tachycardia) (Chronic) Acute kidney failure (Acute) Primary bladder malignant neoplasm (Acute) Bladder spasm (Acute) BPH (benign prostatic hyperplasia) (Chronic) Bilateral hydronephrosis (Acute) Medical History Hematuria Bladder mass Cystitis DVT prophylaxis Gross hematuria Urinary retention SVT (supraventricular tachycardia) Surgical History History of transurethral resection of bladder tumor (TURBT)
--- NOTE | 2023-10-12 16:13 | PDOC.CMIN ---
Date of service: 10/12/23 Time of Service: 16:13 Care Management Initial Assmt Initial Assessment Reason for Hospitalization: pneumonia, sepsis Functional Status/Living Situation Patient Presentation: Aníbal was sitting up in his chair, visiting with his girlfriend, Jasmin, and his sister/roommate, Eulalia when CM met with him. Together they discussed how they were not pleased with his experience at [facility], where he was just placed last , 10/08/23. Aníbal is requesting that referrals are sent to alternate facilities prior to discharge, in order for him to have the opportunity to go elsewhere, if able. CM discussed this with Aníbal and his friends, and offered to send referrals to [facility], and the [place]; [facility] is their first choice. CM also stated that if he does not have a bed offer at another facility prior to discharge, he will either return to [facility] or return home. Per PT, he continues to meet criteria for SNF. Aníbal stated that he has not yet started chemo, but that is his plan, although the goal for him going to short term rehab is for him to get stronger prior to starting treatment. CM will continue to follow. Town of Residence: [facility] Resides with: Other (friend, Eulalia) Significant Other/Family: Local (girlfriend, Jasmin) Natural Supports: Aníbal lives with Eulalia, his friend (referred to as his sister, although not biological), but he spends most of his time with his girlfriend, Jasmin. Employment Status: Retired Instrumental Activities of Daily Living (ADLs): Requires support Medications Medication Management: No Issues/Barriers identified Advance Directives Advance Directives: Do you have an Advance Directive: N 10/11/23 16:11 AD On File at [facility]: N 10/09/20 14:51 Date Asked 10/11/23 10/11/23 16:01 AD Date Reviewed COLST On File at [facility] COLST Date Scanned Comment: CM discussed [place] AD; Aníbal is not interested in filling them out at this time, but did state that he is a full code. CM encouraged him to fill out [facility] AD vs [facility] appointment, and offered support, if needed. Code Status Resuscitation Status Full Code Insurance Coverage/Financial Issues Insurance: [facility] Care Team Visit Care Team Role Provider Type Mary Clements Primary Care Provider NON-[facility] STAFF PHYSICIAN InPatient Jhonny Elliott Other Providers OTHER Nacho Carpio MD Other Providers [facility] STAFF PHYSICIAN Amrit León MD Emergency Provider [facility] STAFF PHYSICIAN Ranjith Christy MD Admit Provider [facility] STAFF PHYSICIAN Attending Provider Discharge Potential Discharge Needs: Other (SNF) Anticipated Barriers to Discharge: Bed availability Patient/Family Education Needs: Review discharge instructions, discuss Ask Me Three Transportation: [facility] RCT Transportation: Wheel chair van Plan: Anticipate Aníbal will discharge to SNF; either [facility], where he recently admitted for short term rehab vs another SNF, if a bed is available. His transport will depend on his mobility and his disposition. He will follow up with his PCP and discharge plan of care. CM will continue to follow. PFSH All Active Problems (Updated 10/12/23 @ 16:01 by Luna Joseph MD) Elevated brain natriuretic peptide (BNP) level (Acute) Acute respiratory failure with hypoxia (Acute) Afib (Chronic) Acute kidney injury superimposed on CKD (Acute) Elevated troponin (Acute) UTI (urinary tract infection) (Acute) CAP (community acquired pneumonia) (Acute) Septic shock (Acute) GLADYS (acute kidney injury) (Acute) Pneumonia (Acute) Septic shock (Acute) Hypomagnesemia (Acute) Sepsis (Acute) SVT (supraventricular tachycardia) (Chronic) Acute kidney failure (Acute) Primary bladder malignant neoplasm (Acute) Bladder spasm (Acute) BPH (benign prostatic hyperplasia) (Chronic) Bilateral hydronephrosis (Acute) Medical History Hematuria Bladder mass Cystitis DVT prophylaxis Gross hematuria Urinary retention SVT (supraventricular tachycardia) Surgical History History of transurethral resection of bladder tumor (TURBT) Social History Smoking/Tobacco Use Status: Never Smoking risk assessment performed?: Yes Alcohol Intake: former Substance use type: does not use Housing: house Do you feel safe at home: Yes Do you feel safe in your relationship?: Yes SDOH(Care Management) Screening Will the Patient Participate in the Screening?: Unable to obtain
--- NOTE | 2023-10-12 17:32 | UCONE_ITS ---
Date of service: 10/12/23 Time of Service: 16:15 Assessment and Plan Assessment and plan (1) Acute kidney injury superimposed on CKD: Status: Acute Assessment and plan: This gentleman has metastatic bladder cancer. His cancer has progressed to the point where he has bilateral hydronephrosis and he required placement of bilateral nephrostomy tubes in early September. He had a recent episode where the right nephrostomy tube became dislodged and his renal function worsened. The interventional radiology team at [facility] repositioned the right ureteral stent on September 26. A subsequent CT scan showed no hydronephrosis on either side and good parenchyma bilaterally. He is not having much output from the left nephrostomy tube and he has a abdominal ultrasound finding of mild left hydronephrosis. I think we have to assume that his left nephrostomy tube has become displaced. Unfortunately we are not able to replace the nephrostomy tube here at our facility. We would need to contact our interventional radiology colleagues to help with the tube replacement. History of Present Illness History of Present Illness Chief Complaint: Metastatic bladder cancer Narrative: This is a 72-year-old gentleman who has a history of metastatic bladder cancer. Initially, his pathology was felt to be urothelial cell carcinoma with some squamous cell differentiation. A reread of the pathology indicates that the cancer may be predominantly squamous cell carcinoma. With his metastatic status, he is not felt to be a cystectomy candidate. He has been evaluated by medical oncology at [facility]. During his metastatic workup, he was found to have worsening renal failure and bilateral hydronephrosis. He had bilateral nephrostomy tubes placed back in early September. He had an admission to [facility] for sepsis in mid September. During that time, he had peritonitis and at the time of exploration, a perforation at the dome of the bladder was identified. An omental patch was placed over the area and a Malave catheter was left in place. During that hospitalization, his right nephrostomy tube became dislodged and required replacement. At the time of his discharge, his serum creatinine was 1.[address] scan showed no hydronephrosis on either side and nephrostomy tubes in good position. He is now admitted here with sepsis. His renal function has worsened. He is not draining much from his left nephrostomy tube. He is not having any flank pain. He has had some clinical improvement with antibiotics and hydration, but his white blood count and serum creatinine continue to rise. PFSH All Active Problems (Updated 10/12/23 @ 16:01 by Luna Joseph MD) Elevated brain natriuretic peptide (BNP) level (Acute) Acute respiratory failure with hypoxia (Acute) Afib (Chronic) Acute kidney injury superimposed on CKD (Acute) Elevated troponin (Acute) UTI (urinary tract infection) (Acute) CAP (community acquired pneumonia) (Acute) Septic shock (Acute) GLADYS (acute kidney injury) (Acute) Pneumonia (Acute) Septic shock (Acute) Hypomagnesemia (Acute) Sepsis (Acute) SVT (supraventricular tachycardia) (Chronic) Acute kidney failure (Acute) Primary bladder malignant neoplasm (Acute) Bladder spasm (Acute) BPH (benign prostatic hyperplasia) (Chronic) Bilateral hydronephrosis (Acute) Medical History Hematuria Bladder mass Cystitis DVT prophylaxis Gross hematuria Urinary retention SVT (supraventricular tachycardia) Surgical History History of transurethral resection of bladder tumor (TURBT) Social History Smoking/Tobacco Use Status: Never Smoking risk assessment performed?: Yes Alcohol Intake: former Substance use type: does not use Housing: house Do you feel safe at home: Yes Do you feel safe in your relationship?: Yes Exam Narrative Exam Narrative: He is sitting up in a chair with his family members. He looks more chronically ill than he does acutely ill His vital signs are documented elsewhere The urine output from his right kidney is clear and yellow. There is minimal output from the left kidney. The output from his bladder/Malave catheter is more cloudy in color Results Last Vital Signs Temp 36.2 C L 10/12/23 16:42 Pulse 81 10/12/23 16:01 Resp 20 10/12/23 16:01 BP 90/64 L 10/12/23 16:01 Pulse Ox 95 10/12/23 16:01 Labs 10/13/23 06:03 10/13/23 06:03 Labs: Laboratory Results - last 24 hr 10/11/23 10/11/23 10/11/23 18:30 19:40 21:10 WBC RBC Hgb Hct MCV MCH MCHC RDW Plt Count MPV Sodium Potassium Chloride Carbon Dioxide Anion Gap BUN Creatinine Est GFR (CKD-EPI 2020) Glucose Calcium Magnesium Troponin I 52 Urine Color Yellow Dark Yellow Urine Clarity Sl Cloudy Sl Cloudy Urine pH 5.0 5.5 Ur Specific [place] 1.015 1.015 Urine Protein 30 H 30 H Urine Ketones Negative Negative Urine Blood Large H Moderate H Urine Nitrite Negative Negative Urine Bilirubin Negative Negative Urine Urobilinogen 0.2 0.2 Ur Leukocyte Esterase Negative Negative Urine RBC 10-20 H 10-20 H Urine WBC 3-5 0-2 Ur Epithelial Cells Negative Negative Urine Crystals Few Amorphous Negative Urine Bacteria Few Few Urine Casts Negative Negative Urine Mucus Trace Trace Urine Other Rare Yeast Ur Culture Indicated? No No Urine Glucose Negative Negative 10/12/23 10/12/23 10/12/23 05:45 05:45 10:00 WBC 35.22 H* RBC 3.16 L Hgb 8.7 L Hct 28.2 L MCV 89 MCH 27.5 MCHC 30.9 L RDW 15.7 H Plt Count 278 MPV 11.2 H Sodium 144 Potassium 4.0 Chloride 109 H Carbon Dioxide 22.7 Anion Gap 12.3 H BUN 42 H Creatinine 3.1 H Est GFR (CKD-EPI 2020) 20.57 Glucose 184 H Calcium 10.3 H Magnesium 2.2 Cancelled Troponin I Urine Color Red Urine Clarity Urine pH Ur Specific [place] Urine Protein Urine Ketones Urine Blood Urine Nitrite Urine Bilirubin Urine Urobilinogen Ur Leukocyte Esterase Urine RBC Urine WBC Ur Epithelial Cells Urine Crystals Urine Bacteria Urine Casts Urine Mucus Urine Other Ur Culture Indicated? Urine Glucose 10/12/23 10/12/23 10/12/23 10:00 10:00 10:00 WBC RBC Hgb Hct MCV MCH MCHC RDW Plt Count MPV Sodium Potassium Chloride Carbon Dioxide Anion Gap BUN Creatinine Est GFR (CKD-EPI 2020) Glucose Calcium Magnesium Troponin I Urine Color Yellow Urine Clarity Cloudy Clear Urine pH 6.5 5.0 Ur Specific [place] 1.020 Urine Protein Urine Ketones Urine Blood Urine Nitrite Urine Bilirubin Urine Urobilinogen Ur Leukocyte Esterase Urine RBC Urine WBC Ur Epithelial Cells Urine Crystals Urine Bacteria Urine Casts Urine Mucus Urine Other Ur Culture Indicated? Urine Glucose 10/12/23 10/12/23 10/12/23 10:00 10:00 10:00 WBC RBC Hgb Hct MCV MCH MCHC RDW Plt Count MPV Sodium Potassium Chloride Carbon Dioxide Anion Gap BUN Creatinine Est GFR (CKD-EPI 2020) Glucose Calcium Magnesium Troponin I Urine Color Urine Clarity Urine pH Ur Specific [place] 1.020 Urine Protein >=300 H 30 H Urine Ketones Trace H Negative Urine Blood Large H Urine Nitrite Urine Bilirubin Urine Urobilinogen Ur Leukocyte Esterase Urine RBC Urine WBC Ur Epithelial Cells Urine Crystals Urine Bacteria Urine Casts Urine Mucus Urine Other Ur Culture Indicated? Urine Glucose 10/12/23 10/12/23 10/12/23 10: 10:00 10:00 WBC RBC Hgb Hct MCV MCH MCHC RDW Plt Count MPV Sodium Potassium Chloride Carbon Dioxide Anion Gap BUN Creatinine Est GFR (CKD-EPI 2020) Glucose Calcium Magnesium Troponin I Urine Color Urine Clarity Urine pH Ur Specific [place] Urine Protein Urine Ketones Urine Blood Moderate H Urine Nitrite Positive H Negative Urine Bilirubin Large H Negative Urine Urobilinogen 2.0 H Ur Leukocyte Esterase Urine RBC Urine WBC Ur Epithelial Cells Urine Crystals Urine Bacteria Urine Casts Urine Mucus Urine Other Ur Culture Indicated? Urine Glucose 10/12/23 10/12/23 10/12/23:00 10:00 10:00 WBC RBC Hgb Hct MCV MCH MCHC RDW Plt Count MPV Sodium Potassium Chloride Carbon Dioxide Anion Gap BUN Creatinine Est GFR (CKD-EPI 2020) Glucose Calcium Magnesium Troponin I Urine Color Urine Clarity Urine pH Ur Specific [place] Urine Protein Urine Ketones Urine Blood Urine Nitrite Urine Bilirubin Urine Urobilinogen 0.2 Ur Leukocyte Esterase Large H Negative Urine RBC >50 H 10-20 H Urine WBC Negative Ur Epithelial Cells Urine Crystals Urine Bacteria Urine Casts Urine Mucus Urine Other Ur Culture Indicated? Urine Glucose 10/12/23 10/12/23 10/12/23:00 10:00 10:00 WBC RBC Hgb Hct MCV MCH MCHC RDW Plt Count MPV Sodium Potassium Chloride Carbon Dioxide Anion Gap BUN Creatinine Est GFR (CKD-EPI 2020) Glucose Calcium Magnesium Troponin I Urine Color Urine Clarity Urine pH Ur Specific [place] Urine Protein Urine Ketones Urine Blood Urine Nitrite Urine Bilirubin Urine Urobilinogen Ur Leukocyte Esterase Urine RBC Urine WBC 0-2 Ur Epithelial Cells Negative Rare Urine Crystals Negative Negative Urine Bacteria Many Urine Casts Urine Mucus Urine Other Ur Culture Indicated? Urine Glucose 10/12/23 10/12/23 10/12/23:00 10:00 10:00 WBC RBC Hgb Hct MCV MCH MCHC RDW Plt Count MPV Sodium Potassium Chloride Carbon Dioxide Anion Gap BUN Creatinine Est GFR (CKD-EPI 2020) Glucose Calcium Magnesium Troponin I Urine Color Urine Clarity Urine pH Ur Specific [place] Urine Protein Urine Ketones Urine Blood Urine Nitrite Urine Bilirubin Urine Urobilinogen Ur Leukocyte Esterase Urine RBC Urine WBC Ur Epithelial Cells Urine Crystals Urine Bacteria Few Urine Casts Negative Negative Urine Mucus Negative Trace Urine Other Negative Ur Culture Indicated? Urine Glucose 10/12/23 10/12/23 10/12/23 10:00 10:00 10:00 WBC RBC Hgb Hct MCV MCH MCHC RDW Plt Count MPV Sodium Potassium Chloride Carbon Dioxide Anion Gap BUN Creatinine Est GFR (CKD-EPI 2020) Glucose Calcium Magnesium Troponin I Urine Color Urine Clarity Urine pH Ur Specific [place] Urine Protein Urine Ketones Urine Blood Urine Nitrite Urine Bilirubin Urine Urobilinogen Ur Leukocyte Esterase Urine RBC Urine WBC Ur Epithelial Cells Urine Crystals Urine Bacteria Urine Casts Urine Mucus Urine Other Negative Ur Culture Indicated? No No Urine Glucose Negative Negative
[2023-10-12] MEDS: Normal Saline Flush 10 ML SYR (21:34)
[2023-10-13] VITALS (58 sets, daily range): BP systolic 83–153; BP diastolic 51–118; PULSE 54–158; RESP 14–40; TEMP 36.6–36.9; O2SAT 91–95
[2023-10-13] MEDS: CEFEPIME 1 GM in Normal Saline 50 ML IVPB ×2 (00:30→11:44)
--- NOTE | 2023-10-13 01:00 | RT.EKG_ITS ---
APPROVED REPORT Exam: Resting ECG Reason for Exam: leidy pedraza Patient Location: I HR:111 bpm ECG Measurements Heart Rate 111 AXIS CA [id number] P [id number] QRSd 101 QRS 7 QT 388 T 8 QTc 528 Conclusion Atrial fibrillation... Ventricular premature complex...V complex w/ short R-R interval
[2023-10-13 06:59] LABS: HCT 32.9 % (40.0-50.0); HGB 10.2 g/dL (13.5-17.5); MCH 26.6 pg (27.0-33.0); MCV 86 fL (80-95); MPV 11.4 fL (8.0-11.0); Platelet Count 198 10^3/uL (130-400); RBC 3.84 10^6/uL (4.36-5.78); RDW 15.9 % (11.8-14.1); RDW-SD 48.9 fL
[2023-10-13 07:17] LABS: WBC 23.04 10^3/uL (4.4-10.8)
[2023-10-13 07:29] LABS: Anion Gap 11.4 mmol/L (3-11); BUN 55 mg/dL (7-18); CO2 21.6 mmol/L (21.0-32.0); CREATININE 2.9 mg/dL (0.70-1.30); Calcium 10.2 mg/dL (8.5-10.1); Chloride 107 mmol/L (98-107); Estimated GFR 22.29 (mL/min/1.73m2); Glucose 127 mg/dL (74-106); Potassium 4.1 mmol/L (3.5-5.1); Sodium 140 mmol/L (136-145)
[2023-10-13] MEDS: Lactated Ringers 1,000 ML 100 ML IV (08:52)
[2023-10-13] MEDS: Metoprolol 5 MG/5 ML VIAL IVP (09:35)
[2023-10-13] MEDS: Normal Saline Flush 10 ML SYR (09:37)
--- NOTE | 2023-10-13 09:47 | PGE_ITS ---
Date of Service Date of service: 10/13/23 Time of Service: 09:47 Assessment and Plan Assessment and plan (1) Septic shock: Status: Acute Assessment and plan: -patient met criteria for septic shock on admission with HR of ~100, WBC 21, elevated trop of about 61, GLADYS with Cr 2.9 (baseline about 1.2), initial lactic acid of 2.3 (which improved to 1.3) and persistent hypotension despite adequate fluid rehydration requiring levophed to maintain MAP >65 with source of infection being UTI (now known gram negative bacteremia) and CAP -patient had been on as much as 5mcg of levophed, now down to about 3 on AM 8 -started on vanc and cefepime in the ED -continue cefepime -vanc discontinued given gram negative bacteremia -f/u final blood and urine culture results (2) CAP (community acquired pneumonia): Status: Acute Assessment and plan: -as noted above Qualifiers: Laterality: unspecified laterality Qualified Code(s): J18.9 - Pneumonia, unspecified organism (3) Acute respiratory failure with hypoxia: Status: Acute Assessment and plan: -secondary to septic shock and CAP as noted above -required as much as 6L NC overnight, now down to 2L NC -continue to wean O2 as tolerated with goal O2 sat >92% (4) UTI (urinary tract infection): Status: Acute Assessment and plan: -as noted above Qualifiers: Urinary tract infection type: site unspecified Hematuria presence: without hematuria Qualified Code(s): N39.0 - Urinary tract infection, site not specified (5) Elevated troponin: Status: Acute Assessment and plan: -likely type II NSTEMI due to septic shock as noted above (6) Acute kidney injury superimposed on CKD: Status: Acute Assessment and plan: -secondary to septic shocks and UTI -also, possibly due to left nephrostomy tube which will need to be replaced -see below for details (7) Afib: Status: Chronic Assessment and plan: -continue home eliquis and toprol XL 125mg Qualifiers: Atrial fibrillation type: longstanding persistent Qualified Code(s): I48.11 - Longstanding persistent atrial fibrillation (8) Primary bladder malignant neoplasm: Status: Acute Assessment and plan: -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 He understands that he is here with UTI and CAP, and that hwe will be reaching out to [facility] Interventional Radiology for possible [id number] procedure to have his left nephrostomy tube replaced. Exam Narrative Exam Narrative: chronically ill appearing older gentleman laying in bed in no acute distress, AOx4, heart irregularly irregular, rate ~120bpm, lungs CTAB, abdomen soft, non- tender, non-distended, clear urine from right nephrostomy tube, clots and blood in left nephrostomy tube Objective Last Vital Signs Temp 97.9 F 10/13/23 07:17 Pulse 158 H 10/13/23 09:35 Resp 26 H 10/13/23 04:00 BP 85/67 L 10/13/23 03:00 Pulse Ox 94 10/13/23 08:03 Laboratory Results - last 24 hr 10/12/23 10/12/23 10/12/23 10:00 10:00 10:00 WBC RBC Hgb Hct MCV MCH MCHC RDW Plt Count MPV Sodium Potassium Chloride Carbon Dioxide Anion Gap BUN Creatinine Est GFR (CKD-EPI 2020) Glucose Calcium Urine Color Red Yellow Urine Clarity Cloudy Clear Urine pH 6.5 Ur Specific [place] Urine Protein Urine Ketones Urine Blood Urine Nitrite Urine Bilirubin Urine Urobilinogen Ur Leukocyte Esterase Urine RBC Urine WBC Ur Epithelial Cells Urine Crystals Urine Bacteria Urine Casts Urine Mucus Urine Other Ur Culture Indicated? Urine Glucose 10/12/23 10/12/23 10/12/23 10:00 10:00 10:00 WBC RBC Hgb Hct MCV MCH MCHC RDW Plt Count MPV Sodium Potassium Chloride Carbon Dioxide Anion Gap BUN Creatinine Est GFR (CKD-EPI 2020) Glucose Calcium Urine Color Urine Clarity Urine pH 5.0 Ur Specific [place] 1.020 1.020 Urine Protein >=300 H 30 H Urine Ketones Trace H Urine Blood Urine Nitrite Urine Bilirubin Urine Urobilinogen Ur Leukocyte Esterase Urine RBC Urine WBC Ur Epithelial Cells Urine Crystals Urine Bacteria Urine Casts Urine Mucus Urine Other Ur Culture Indicated? Urine Glucose 10/12/23 10/12/23 10/12/23 10:00 10:00 10:00 WBC RBC Hgb Hct MCV MCH MCHC RDW Plt Count MPV Sodium Potassium Chloride Carbon Dioxide Anion Gap BUN Creatinine Est GFR (CKD-EPI 2020) Glucose Calcium Urine Color Urine Clarity Urine pH Ur Specific [place] Urine Protein Urine Ketones Negative Urine Blood Large H Moderate H Urine Nitrite Positive H Negative Urine Bilirubin Large H Urine Urobilinogen Ur Leukocyte Esterase Urine RBC Urine WBC Ur Epithelial Cells Urine Crystals Urine Bacteria Urine Casts Urine Mucus Urine Other Ur Culture Indicated? Urine Glucose 10/12/23 10/12/23 10/12/23 10:00 10:00 10:00 WBC RBC Hgb Hct MCV MCH MCHC RDW Plt Count MPV Sodium Potassium Chloride Carbon Dioxide Anion Gap BUN Creatinine Est GFR (CKD-EPI 2020) Glucose Calcium Urine Color Urine Clarity Urine pH Ur Specific [place] Urine Protein Urine Ketones Urine Blood Urine Nitrite Urine Bilirubin Negative Urine Urobilinogen 2.0 H 0.2 Ur Leukocyte Esterase Large H Negative Urine RBC >50 H Urine WBC Ur Epithelial Cells Urine Crystals Urine Bacteria Urine Casts Urine Mucus Urine Other Ur Culture Indicated? Urine Glucose 10/12/23 10/12/23 10/12/23 10:00 10:00 10:00 WBC RBC Hgb Hct MCV MCH MCHC RDW Plt Count MPV Sodium Potassium Chloride Carbon Dioxide Anion Gap BUN Creatinine Est GFR (CKD-EPI 2020) Glucose Calcium Urine Color Urine Clarity Urine pH Ur Specific [place] Urine Protein Urine Ketones Urine Blood Urine Nitrite Urine Bilirubin Urine Urobilinogen Ur Leukocyte Esterase Urine RBC 10-20 H Urine WBC Negative 0-2 Ur Epithelial Cells Negative Rare Urine Crystals Negative Urine Bacteria Urine Casts Urine Mucus Urine Other Ur Culture Indicated? Urine Glucose 10/12/23 10/12/23 10/12/23 10:00 10:00 10:00 WBC RBC Hgb Hct MCV MCH MCHC RDW Plt Count MPV Sodium Potassium Chloride Carbon Dioxide Anion Gap BUN Creatinine Est GFR (CKD-EPI 2020) Glucose Calcium Urine Color Urine Clarity Urine pH Ur Specific [place] Urine Protein Urine Ketones Urine Blood Urine Nitrite Urine Bilirubin Urine Urobilinogen Ur Leukocyte Esterase Urine RBC Urine WBC Ur Epithelial Cells Urine Crystals Negative Urine Bacteria Many Few Urine Casts Negative Negative Urine Mucus Negative Urine Other Ur Culture Indicated? Urine Glucose 10/12/23 10/12/23 10/12/23 10:00 10:00 10:00 WBC RBC Hgb Hct MCV MCH MCHC RDW Plt Count MPV Sodium Potassium Chloride Carbon Dioxide Anion Gap BUN Creatinine Est GFR (CKD-EPI 2020) Glucose Calcium Urine Color Urine Clarity Urine pH Ur Specific [place] Urine Protein Urine Ketones Urine Blood Urine Nitrite Urine Bilirubin Urine Urobilinogen Ur Leukocyte Esterase Urine RBC Urine WBC Ur Epithelial Cells Urine Crystals Urine Bacteria Urine Casts Urine Mucus Trace Urine Other Negative Negative Ur Culture Indicated? No No Urine Glucose Negative 10/12/23 10/13/23 10:00 06:03 WBC 23.04 H RBC 3.84 L Hgb 10.2 L Hct 32.9 L MCV 86 MCH 26.6 L MCHC 31.0 L RDW 15.9 H Plt Count 198 MPV 11.4 H Sodium 140 Potassium 4.1 Chloride 107 Carbon Dioxide 21.6 Anion Gap 11.4 H BUN 55 H Creatinine 2.9 H Est GFR (CKD-EPI 2020) 22.29 Glucose 127 H Calcium 10.2 H Urine Color Urine Clarity Urine pH Ur Specific [place] Urine Protein Urine Ketones Urine Blood Urine Nitrite Urine Bilirubin Urine Urobilinogen Ur Leukocyte Esterase Urine RBC Urine WBC Ur Epithelial Cells Urine Crystals Urine Bacteria Urine Casts Urine Mucus Urine Other Ur Culture Indicated? Urine Glucose Negative Time Spent with Patient Time Spent with Patient: >50 minutes Time was spent: preparing to see the patient(eg.review tests), obtaining and/or reviewing separately otained hiistory, ordering medications,tests, procedures, referring, communicating with other health after school caregiver, indepentently interpreting results, counseling the patient and care coordination
--- NOTE | 2023-10-13 10:03 | PDOC.CMPRO ---
Date of service: 10/13/23 Time of Service: 10:03 Care Management Progress Note Progress Note Text Progress Note Text: Aníbal was sitting up in bed visiting with Jasmin (girlfriend) and Eulalia (friend) today when CM met with them. CM discussed his discharge plan; referrals were sent to [facility], and the [facility], with no response at that time. Later, the [facility] denied Aníbal's referral, stating it is a clinical denial. CM again discussed that if no bed offer is made prior to his discharge readiness, he will return to [facility] to continue his short term rehab to get stronger prior to starting chemo. Aníbal expressed understanding and agreement to this plan. CM will continue to follow. Discharge Potential Discharge Needs: PCP F/U Appt Anticipated Barriers to Discharge: Bed availability Patient/Family Education Needs: Review discharge instructions, discuss Ask Me Three Transportation: Facility Transport Plan: Anticipate Aníbal will discharge to SNF; either [facility], where he recently admitted for short term rehab vs another SNF, if a bed is available. His transport will depend on his mobility and his disposition. He will follow up with his PCP and discharge plan of care. CM will continue to follow. SDOH(Care Management) Screening Will the Patient Participate in the Screening?: Unable to obtain
--- NOTE | 2023-10-13 13:01 | W.PM.PROGNOT ---
Date of Service Date of service: 10/13/23 Time of Service: 13:01 Assessment and Plan Assessment and plan (1) Bilateral hydronephrosis: Status: Acute Assessment and plan: I believe his left nephrostomy tube has become displaced and when he is stable, having an evaluation by interventional radiology would be helpful so that the tube can be evaluated and reposition/replaced. Subjective Subjective Interval history since last seen: The patient tells me he feels better than yesterday. He still has no flank pain but is not having any significant output from the left kidney Exam Narrative Exam Narrative: He appears comfortable His vital signs are documented elsewhere He is awake and alert Objective Last Vital Signs Temp 36.6 C 10/13/23 12:00 Pulse 97 H 10/13/23 12:01 Resp 28 H 10/13/23 12:30 BP 95/65 L 10/13/23 12:01 Pulse Ox 92 10/13/23 12:01 Laboratory Results - last 24 hr 10/13/23 06:03 WBC 23.04 H RBC 3.84 L Hgb 10.2 L Hct 32.9 L MCV 86 MCH 26.6 L MCHC 31.0 L RDW 15.9 H Plt Count 198 MPV 11.4 H Sodium 140 Potassium 4.1 Chloride 107 Carbon Dioxide 21.6 Anion Gap 11.4 H BUN 55 H Creatinine 2.9 H Est GFR (CKD-EPI 2020) 22.29 Glucose 127 H Calcium 10.2 H Time Spent with Patient Time Spent with Patient: <25 minutes Time was spent: preparing to see the patient(eg.review tests) and counseling the patient
--- NOTE | 2023-10-13 13:35 | PT.INNT ---
PT Notes Visit Reasons: pneumonia, sepsis 10/13/2023 PT treatment attempted .Nurse advised hold Skilled PT d/t elevated HR >130bpm at rest. Will attempt on 10/14/2023.
--- NOTE | 2023-10-13 17:12 | CHAPLAIN ---
Aníbal was resting in bed when I visited. He was soft spoken. I explained my role and offered support. According to hospitalist's notes, Aníbal was [facility] and was there to get stronger before having treatments for bladder cancer. He lives with a friend and also has a girlfriend who is supportive. I will continue to visit.
[2023-10-13] MEDS: Normal Saline Flush 10 ML SYR IVP (21:01)
[2023-10-14] VITALS (45 sets, daily range): BP systolic 85–125; BP diastolic 66–85; PULSE 72–147; RESP 20–48; TEMP 37–37.1; O2SAT 88–98
[2023-10-14] MEDS: CEFEPIME 1 GM in Normal Saline 50 ML IVPB ×2 (00:14→12:17)
--- NOTE | 2023-10-14 03:30 | DI.RAD_ITS ---
Exam(s) XR PORTABLE CHEST AP EXAM: XR PORTABLE CHEST AP CLINICAL HISTORY: Sudden onset SOB. TECHNIQUE: 2D digital imaging was performed. COMPARISON: CT CT CHEST PE CTA from 10/11/2023 CR,XR XR PORTABLE CHEST AP from 10/11/2023 FINDINGS: Single AP portable view. Heart size is upper normal. The mediastinum is not widened. Right hemidiaphragm is again noted be moderately elevated. There is some infiltrate in left lower lobe again noted. Also mild blunting of left costophrenic ang le indicating small amount of left pleural fluid. Some increased markings in the right lung base als o noted. There also appears to be some patchy infiltrate higher up in the mid right lung field corre sponding to probable infiltrate in the superior segment of the right lower lobe, as seen on recent CT scan of 10/11/2023. IMPRESSION: Persistent bilateral infiltrates. Small amount of pleural fluid bilaterally. Moderately elevated right hemidiaphragm. DATA REPOSITORY: RADIATION DOSE DELIVERED:
[2023-10-14 04:06] LABS: BE -3 mmol/L (-2-3); HCO3 21 mmol/L (22-26); pCO2 29 mmHg (35-45); pH 7.47 (7.35-7.45); pO2 65 mmHg (80-105); sO2 95 % (95-98); tCO2 20 mmol/L (23-27)
[2023-10-14 04:09] LABS: Abs Immature Grans 0.17 10^3/uL (0.0-0.06); Absolute Eosinophil Count 0.47 10^3/uL (0.0-0.7); Absolute Lymphocyte Count 1.44 10^3/uL (1.2-3.4); Absolute Monocyte Count 0.57 10^3/uL (0.1-0.8); Basophils % 0.4 %; Eosinophils % 2.9 %; HCT 24.7 % (40.0-50.0); HGB 7.7 g/dL (13.5-17.5); Lymphocytes % 8.9 %; MCH 27.1 pg (27.0-33.0); MCHC 31.2 % (32.0-36.0); MCV 87 fL (80-95); MPV 11.1 fL (8.0-11.0); Monocytes % 3.5 %; Neutrophils % 83.3 %; Platelet Count 227 10^3/uL (130-400); RBC 2.84 10^6/uL (4.36-5.78); RDW 15.8 % (11.8-14.1); RDW-SD 49.9 fL; WBC 16.21 10^3/uL (4.4-10.8)
[2023-10-14 04:10] LABS: Site Left Radial
[2023-10-14 04:14] LABS: FIO2 36 %
[2023-10-14 04:15] LABS: Absolute Basophil Count 0.06 10^3/uL (0.0-0.2)
[2023-10-14 04:38] LABS: Anion Gap 7.1 mmol/L (3-11); BUN 55 mg/dL (7-18); CO2 24.9 mmol/L (21.0-32.0); CREATININE 2.6 mg/dL (0.70-1.30); Calcium 9.8 mg/dL (8.5-10.1); Chloride 106 mmol/L (98-107); Estimated GFR 25.41 (mL/min/1.73m2); Glucose 98 mg/dL (74-106); Potassium 4.2 mmol/L (3.5-5.1); Sodium 138 mmol/L (136-145); Troponin I < 50 ng/L (< or =60)
[2023-10-14 04:48] LABS: Ammonia 25 umol/L (11-32)
--- NOTE | 2023-10-14 05:01 | W.EVENT ---
Date of service: 10/14/23 Time of Service: 05:01 Event Note: This is a 72-year-old gentleman who was admitted with septic shock and UTI with gram-negative ratna bacteremia on blood cultures with recurrent fever. I was called to the bedside because of tachypnea but patient asymptomatic with breathing into the 30s with continued oxygen support. Order blood gases showed hypoventilation with hypoxemia. Patient did already have hypoxic respiratory failure with his septic shock. He was scheduled to go to [facility] [facility] for interventional radiology and replacement of left nephrostomy tube which is markedly functional. He is having good output from right nephrostomy tube. He is status post nephrostomy tube placement for invasive bladder cancer diagnosed in June 2023 the patient had a prolonged hospital stay from 09/15/2023 to 10/08/2019 for being discharged just prior to admission here for septic shock. When evaluated the patient his lungs were clear and he had shallow rapid respirations with heart-irregularly irregular rhythm with atrial fibrillation on cardiac surgeon. This is chronic. His pulse oximeter was to be maintained above 90% with O2 supplementation which is at increased since he was tachypneic. Other lab was performed the patient appeared to have worsening anemia with CKD and type and screen was performed. He was not having fever and antibiotic regimen was not changed. Chest x-ray did not reveal any significant acute changes with bilateral small pleural effusions and persistent infiltrates as well as elevated right hemidiaphragm. CT of the chest was entertained for possible PE with patient having Eliquis held for procedure planned for today. I did contact patient for possible transfer acutely and they were at capacity but would bypass this restriction because of patient's recent prolonged hospitalizations acutely with multiple issues during [facility] hospitalization. They would need to await bed opening. Other review of the patient's lab revealed WBC decreasing but elevated and troponin negative. BNP was ordered by the ICU nurse and was expectedly elevated the patient's septic shock. After evaluation and review with [facility], patient was stabilizing with tachypnea resolved when sleeping but increased when awake, he had mild confusion. During this event and this was clearing. I did signout the patient to the day hospitalist who will proceed with CT of the chest and treatment for possible PE while waiting for possible transfer. The patient is planned interventional radiology procedure was canceled by [facility]. Patient is a full code. Time Spent with Patient Time spent in critical care(minutes): 60 Time Spent Included: Coordination of care, Chart review, Documenting critically ill care, Time at immediate bedside and Discussing critically ill care with other medical staff
[2023-10-14 05:33] LABS: Procalcitonin 44.8 ng/mL
--- NOTE | 2023-10-14 05:42 | DI.VRAD_ITS ---
PROCEDURE INFORMATION: Exam: XR Chest Exam date and time: 10/14/2023 4:09 AM Age: 72 years old Clinical indication: Shortness of breath; Patient HX: Sudden onset SOB TECHNIQUE: Imaging protocol: Radiologic exam of the chest. Views: 1 view. COMPARISON: CT CHEST PE CTA 10/11/2023 8:05 PM FINDINGS: Lungs: Redemonstrated zhaus-[id number]-xeyl-left basilar patchy airspace infiltration. Diffuse interstitial thickening. Pleural spaces: Unchanged. Heart/Mediastinum: Unchanged. Bones/joints: Unchanged. IMPRESSION: Redemonstrated hmtld-myiawzf-pjmh-left basilar patchy airspace infiltration which is better detailed on the comparative CT pulmonary angiogram performed on 10/11/2023. Dictated and Authenticated by: Gabriel Stephens MD. Ordering:JOHN Kasper MD
[2023-10-14] MEDS: Heparin in 0.45% NaCl 25,000 UNIT/250 ML BAG 14 UNIT IV ×2 (07:58→20:20)
[2023-10-14] MEDS: Metoprolol 25 MG TAB PO ×2 (08:33→14:26)
--- NOTE | 2023-10-14 09:01 | W.PULMCC ---
General Date of Service Date of service: 10/14/23 Time of Service: 09:01 Admit Date Admit Date: 10/10 Reason for Admission to ICU: Septic Shock 2/2 to Ecoli bacteremia Assessment and Plan Assessment and plan (1) Septic shock: Status: Acute Assessment and plan: off pressors for 24h 2/2 to UTI/CAP -continue cefepime -vanc discontinued given gram negative bacteremia -f/u final blood and urine culture results (2) CAP (community acquired pneumonia): Status: Acute Assessment and plan: -as noted above Qualifiers: Laterality: unspecified laterality Qualified Code(s): J18.9 - Pneumonia, unspecified organism (3) Acute respiratory failure with hypoxia: Status: Acute Assessment and plan: worsening overnight. could be 2/2 to acute pulm edema, hospital acquired PNA and less likely PE since he has been on eliquis and only held for 24h. given he has very low GFR w/. still viable kidneys suggest getting Doppler Lower Ext, CT chest w/o contrast and if no clear reason for worsening hypoxemia consider VQ Scan. (4) UTI (urinary tract infection): Status: Acute Assessment and plan: -as noted above Qualifiers: Hematuria presence: without hematuria Urinary tract infection type: site unspecified Qualified Code(s): N39.0 - Urinary tract infection, site not specified (5) Elevated troponin: Status: Acute Assessment and plan: -likely type II NSTEMI due to septic shock as noted above (6) Acute kidney injury superimposed on CKD: Status: Acute Assessment and plan: left nephrostomy tube which will need to be replaced (7) Afib: Status: Chronic Assessment and plan: eliquis on hold - agree to use heparin nomogram. change tropol to short acting q12h Qualifiers: Atrial fibrillation type: longstanding persistent Qualified Code(s): I48.11 - Longstanding persistent atrial fibrillation (8) Primary bladder malignant neoplasm: Status: Acute Assessment and plan: per Urology recs (9) Elevated brain natriuretic peptide (BNP) level: Status: Acute Assessment and plan: - low EF 45%. Recommendations I&O: Intake & Output 10/11/23 10/12/23 10/13/23 10/14/23 23:59 23:59 23:59 23:59 Intake Total 6074.687 / 2609.687 2540.125 / 2540.125 3171.230 / 3171.230 50 / 50 Output Total 800 / 800 1502 / 1502 1350 / 1350 1600 / 1600 Balance 1809.687 / 8957.511 7707.125 / 6960.312 3411.230 / 1821.230 -1550 / -1550 Weight 76.2 kg 79.2 kg 79 kg Date of Last Bowel Movement: 10/11/23 Code Status: Resuscitation Status Full Code Subjective Critical and life-threatening events over the past 24 hours: Await[place] bed at [facility] off vasopressors for 24h worsening hypoxemia last 24h but denies any SOB/cough. Exam Resp Other: L basilar crackles diminished R base Cardio Other: RRR S1S2 no murmurs or gallops Most Recent VS/Results Last Vital Signs Temp 37.1 C 10/14/23 02:55 Pulse 92 H 10/14/23 02:55 Resp 33 H 10/14/23 02:55 BP 112/80 10/14/23 02:55 Pulse Ox 95 10/14/23 08:16 Laboratory Results - last 24 hr 10/14/23 10/14/23 10/14/23 03:58 04:03 05:35 WBC 16.21 H Cancelled RBC 2.84 L Cancelled Hgb 7.7 L D Cancelled Hct 24.7 L Cancelled MCV 87 Cancelled MCH 27.1 Cancelled MCHC 31.2 L Cancelled RDW 15.8 H Cancelled Plt Count 227 Cancelled MPV 11.1 H Cancelled Immature Gran % 1.0 Neutrophils % 83.3 Lymphocytes % 8.9 Monocytes % 3.5 Eosinophils % 2.9 Basophils % 0.4 Nucleated RBC % 0.0 Absolute Neutrophils 13.50 H Absolute Lymphocytes 1.44 Absolute Monocytes 0.57 Absolute Eosinophils 0.47 Absolute Basophils 0.06 ABG Sample Site Left Radial ABG pH 7.47 H ABG pCO2 29 L ABG pO2 65 L ABG HCO3 21 L ABG Total CO2 20 L ABG O2 Saturation 95 ABG Base Excess -3 L FiO2 36 Sodium 138 Cancelled Potassium 4.2 Cancelled Chloride 106 Cancelled Carbon Dioxide 24.9 Cancelled Anion Gap 7.1 Cancelled BUN 55 H Cancelled Creatinine 2.6 H Cancelled Est GFR (CKD-EPI 2020) 25.41 Cancelled Glucose 98 Cancelled Calcium 9.8 Cancelled Ammonia 25 Troponin I < 50 Procalcitonin 44.8 ABO/Rh Antibody Screen 10/14/23 06:03 WBC RBC Hgb Hct MCV MCH MCHC RDW Plt Count MPV Immature Gran % Neutrophils % Lymphocytes % Monocytes % Eosinophils % Basophils % Nucleated RBC % Absolute Neutrophils Absolute Lymphocytes Absolute Monocytes Absolute Eosinophils Absolute Basophils ABG Sample Site ABG pH ABG pCO2 ABG pO2 ABG HCO3 ABG Total CO2 ABG O2 Saturation ABG Base Excess FiO2 Sodium Potassium Chloride Carbon Dioxide Anion Gap BUN Creatinine Est GFR (CKD-EPI 2020) Glucose Calcium Ammonia Troponin I Procalcitonin ABO/Rh A Positive Antibody Screen NEGATIVE Review of Systems All systems reviewed & are unremarkable except as noted in HPI and below Time spent with patient Time spent in Critical Care: 30 Time spent in Critical care included: Coordination of care, Chart review, Documenting critically ill care and Time at immediate bedside
--- NOTE | 2023-10-14 09:20 | DI.CT_ITS ---
Exam(s) CT CHEST WO EXAM: CT CHEST WO CLINICAL HISTORY: worsening SOB. TECHNIQUE: Multi planar reconstructions were performed. CONTRAST MATERIAL: None COMPARISON: CT CT ABDOMEN PELVIS W from 06/17/[address] CHEST PE CTA from 10/11/2023 FINDINGS: CHEST: LUNGS: There is mild increase in left lower lobe infiltrate and there is now a small left pleural eff usion. There is also increasing patchy infiltrates in the left upper lobe. Right hemidiaphragm is again noted be moderately elevated. Infiltrate in the superior segment of the right lower lobe is unchanged. There is mild subpleural infiltrate in the right lower lobe posterio r basal segment, not associated with pleural effusion at this time. No new findings in the trachea and mainstem bronchi. MEDIASTINUM: There is no obvious hilar nor mediastinal adenopathy. Visualized thyroid unremarkable.No obvious axillary adenopathy CARDIAC: Heart size minimally prominent. No pericardial effusion. Caliber of thoracic aorta is with in normal limits. VISUALIZED UPPER ABDOMEN:Normal see images this study reveal no adrenal masses but there appears to b e a possible mass in the left kidney only partially included in the field of view of this chest study . This was appearance of cyst on contrast infused CT scan of 06/17/2023 but appears less cystic on t he present images. Also addition density also seen in the medial aspect of the spleen which is isode nse to the remainder of the spleen and may just represent lobulation. There is also a small cyst in the region of the caudate lobe of the liver, previously present.. OSSEOUS: No significant osseous lesions.No fractures.. IMPRESSION: 1. Increasing left lung infiltrates as described above, when compared to CT scan of 10/11/2023. Ther e is also now a small left pleural effusion. 2. Stable appearing infiltrate in the posterior basal segment of the right lower lobe, not associated with right pleural effusion. Moderately elevated right hemidiaphragm again noted. 3. Mass density in the upper pole the left kidney which does not appear purely cystic as was on recen t CT scan of 06/17/2023. Perhaps this there has been intra cyst hemorrhage. Recommend follow-up ult rasound. This is only partially included in the field of view. Other findings as above. RADIATION DOSE DELIVERED: Total DLP DATA REPOSITORY: All CT scans at this facility are submitted to the National Radiology Data Registry (NRDR) Dose Index Registry (DIR) with the [employer] (ACR). RADIATION OPTIMIZATION: All CT scans at this facility use at least one of these dose optimization te chniques: automated exposure control; mA and/or kV adjustment per patient size (includes targeted exa ms where dose is matched to clinical indication); or iterative reconstruction.
--- NOTE | 2023-10-14 10:03 | PDOC.CMDIS ---
Date of service: 10/14/23 Time of Service: 10:04 LACE Index Scoring Tool Questions: Length of Stay (in days): 3 Was the patient admitted via the E.D.?: Yes Comorbidities: Liver or Renal Disease and Metastatic Solid Tumor (Malignant neoplasm of bladder) E.D. Visits: 3 Answers: Total Score: 14 Risk of Readmission: High Risk Care Management Discharge Plan Reason for Hospitalization: pneumonia, sepsis Discharge Plan: Full transfer to [facility] [place], pending bed availability. Patient/Family Education Needs: Review transfer details and instructions, Discuss ask me three. Services Needed at Discharge: Transportation (EMS, coordinated by RN communications electrician supervisor) SDOH Health Related Social Needs: No Data to Display
--- NOTE | 2023-10-14 11:00 | RT.EKG_ITS ---
APPROVED REPORT Exam: Resting ECG Reason for Exam: change of rhythm on tele Patient Location: I HR:125 bpm ECG Measurements Heart Rate 125 AXIS NM [id number] P [id number] QRSd 85 QRS -3 QT 332 T 47 QTc 479 Conclusion Atrial fibrillation...V-rate 97-153, irreg A-activity Aberrant complex...small R-R variation, aberrant QRS Consider anteroseptal infarct...Q >30mS, dimin R, V1-V2
--- NOTE | 2023-10-14 11:20 | PT.INTREAT ---
PT Notes Visit Reasons: pneumonia, sepsis Inpatient Physical Therapy Treatment Note [facility] Date: 10/14/23 PRECAUTIONS:fall, standard SUBJECTIVE: Aníbal states that he is feeling good today. OBJECTIVE: ? VITALS: ?Monitored throughout. At initiation of session, SaO2 resting in mid90s on supplemental O2 via nasal cannula. With standing, he desaturates as low as 77%, with HR up to 149. He was assisted to chair, where HR decreases to 120s, SaO2 improves back to 94%. Therapeutic Activities (71333d3): Direct one-on-one instruction in dynamic activities to improve functional performance. ? BED MOBILITY/TRANSFERS? Supine-sit: min A with HOB at 30*? Sit-stand: min A? Stand-sit: CGA ? Bed-chair transfer: min A, FWW, cues for breathing and pacing. Requires max A for management of lines. Patient demonstrates oxygen desaturation and elevated HR during transfer; he was assisted to chair. Nursing aware. ? Therapeutic Exercises ([id number]): Direct one-on-one instruction in therapeutic exercises to develop strength, endurance, range of motion and flexibility. ?Instructed in the following: supine hip AB/AD 10x each supine heel slides 10x seated march, cues for pacing and breathing, 30 seconds ? ASSESSMENT:? Improving alertness and participation, although with unstable vitals during light activity. EKG ordered following session, and will await results prior to progressing. PLAN: As above TREATMENT CODE/TIME: 10:50-11:20 ([id number], [id number]) DISCHARGE RECOMMENDATION: SNF for continued rehab
[2023-10-14] MEDS: Metoprolol 5 MG/5 ML VIAL IVP ×2 (12:16→16:12)
--- NOTE | 2023-10-14 12:45 | RT.EKG_ITS ---
APPROVED REPORT Exam: Resting ECG Reason for Exam: appears to be back in SR Patient Location: I HR:97 bpm ECG Measurements Heart Rate 97 AXIS MO 161 P -2 QRSd 86 QRS -5 QT 363 T 31 QTc 461 Conclusion Sinus rhythm...normal P axis, V-rate 60- 99 Consider anteroseptal infarct...Q >30mS, dimin R, V1-V2
[2023-10-14 14:12] LABS: BE (Venous) -1 mmol/L (-2-3); HCO3 (Venous) 24 mmol/L (23-28); O2 Sat (Venous) 60 %; TCO2 (Venous) 22 mmol/L (24-29); pCO2 (Venous) 36 mmHg (41-51); pH (Venous) 7.42 (7.31-7.41); pO2 (Venous) 32 mmHg
--- NOTE | 2023-10-14 15:11 | PT.INNT ---
PT Notes Visit Reasons: pneumonia, sepsis Patient on hold for the afternoon per nursing. Will plan to resume PT in the am.
--- NOTE | 2023-10-14 15:47 | PHA.REVIEW2 ---
Pharmacy Admission Review Admission Clinical Review Admission Pharmacy Review: Elevated brain natriuretic peptide (BNP) level (Acute) Acute respiratory failure with hypoxia (Acute) Acute kidney injury superimposed on CKD (Acute) Elevated troponin (Acute) UTI (urinary tract infection) (Acute) CAP (community acquired pneumonia) (Acute) Septic shock (Acute) GLADYS (acute kidney injury) (Acute) Pneumonia (Acute) Septic shock (Acute) Sepsis (Acute) Primary bladder malignant neoplasm (Acute) Bilateral hydronephrosis (Acute) No Known Allergies Allergy (Unverified 10/11/23 18:37) Resuscitation Status Full Code Height 5 ft 10 in Weight 79 kg Comments Comments/Follow Ups: Patient was accepted at [facility] for transfer. Waiting on bed availability Pharmacy Admission Review Renal Dosing Renal Dosing: BUN 55 H 10/14/23 05:35 Creatinine 2.6 H 10/14/23 05:35 Medications needing adjustments: Reviewed (CrCl 28 mL/min, SCr decreased from 2.9) List of meds needing interventions: Current medications are okay Anticoagulation Anticoagulation: Hgb 7.7 L 10/14/23 05:35 Hct 24.7 L 10/14/23 05:35 Plt Count 227 10/14/23 05:35 INR 1.4 (0.9-1.1) H 10/11/23 16:00 Creatinine 2.6 H 10/14/23 05:35 DVT Prophylaxis: Reviewed Medications: Apixaban (5mg PO BID on hold due to heparin) Therapeutic Anticoagulation: Reviewed (aPTT 69 today at 1408, repeat scheduled for 1800) Medications: Heparin (infusion) Opiate Usage Evaluate Pain Scale/Pains Meds: Reviewed (PRN morphine) Scheduled Bowel Reg ordered if on Opiates?: No Relevant Labs Relevant Labs: Sodium Cancelled 10/14/23 05:35 Potassium Cancelled 10/14/23 05:35 Chloride Cancelled 10/14/23 05:35 Magnesium 2.2 mg/dL (1.8-2.4) 10/12/23 05:45 Magnesium Cancelled 10/12/23 05:45 Cardiac Review Cardiac Review: Troponin I < 50 ng/L (< or =60) 10/14/23 03:58 NT-Pro-B Natriuret Pep 90313 pg/mL (<300) H 10/11/23 16:00 BP, HR, EF%: Reviewed (BP WNL, HR 98, RR 39 and Ox 91) QTc Review QTc: Reviewed (528 from 10/13/23) IV to PO Switch IV Medications: Reviewed (cefepime, heparin and morphine) Home Meds Home Med List reviewed: Reviewed Relevent Home Meds Not ordered & why?: diclofenac gel and multivitamin Current Meds Current Medication Order Review: Intervened Comments: Added IV admission order set Pharmacy Antibiotic Review Relevant Labs: Relevant Labs 10/14/23 03:58 Procalcitonin 44.8 WBC 16.21 H 10/14/23 05:35 Procalcitonin 44.8 ng/mL 10/14/23 03:58 Temperature 37.0 C Temperature 37.0 C Microbiology 10/12/23 10:35 Blood Culture - Preliminary Blood NO GROWTH 48 HOURS 10/12/23 10:25 Blood Culture - Preliminary Blood NO GROWTH 48 HOURS 10/12/23 10:00 Urine Culture - Final Urine - Not Specified Gram Positive Arlen 10/12/23 10:00 Urine Culture - Final Urine - Cath Malave Indwelling Enterococcus Faecalis 10/12/23 10:00 Urine Culture - Final Urine - Not Specified Klebsiella Ozaenae 10/11/23 17:03 Blood Culture - Final Blood Klebsiella Ozaenae 10/11/23 16:00 Blood Culture - Final Blood Klebsiella Ozaenae Pharmacy Antibiotic Activity: C/S review and Reviewed, no change Comments: Patient is on day 3 of cefepime for sepsis/pneumonia/UTI. Repeat blood cultures showing no growth, WBC continuing to trend down. Comments Comments/Follow Ups: Patient was accepted at [facility] for transfer. Waiting on bed availability
[2023-10-14] MEDS: Normal Saline Flush 10 ML SYR IVP (16:11)
--- NOTE | 2023-10-14 16:48 | CHAPLAIN ---
I had a short visit with Aníbal. He didn't seem interested in further conversation. His girlfriend Jasmin was with him. I introduced myself to her.
--- NOTE | 2023-10-14 17:19 | W.PM.PROGNOT ---
Date of Service Date of service: 10/14/23 Time of Service: 17:19 Assessment and Plan Assessment and plan (1) Septic shock: Status: Acute Assessment and plan: -off pressors for 24h -2/2 to UTI/CAP -had been on cefepime -repeat CT without contrast on 10/13 shows worsening of left lung infiltrates -vanc discontinued given gram negative bacteremia -however, restarting vanc PM 10/13 given worsening infiltrates on chest CT -f/u final blood and urine culture results Patient has been accepted for transfer to [facility] [place] Med/Surg with accepting Physician Dr. Hardeep Bose once a bed is available (2) CAP (community acquired pneumonia): Status: Acute Assessment and plan: -as noted above Qualifiers: Laterality: unspecified laterality Qualified Code(s): J18.9 - Pneumonia, unspecified organism (3) Acute respiratory failure with hypoxia: Status: Acute Assessment and plan: -worsening overnight. -could be 2/2 to acute pulm edema, hospital acquired PNA and less likely PE since he has been on eliquis and only held for 24h. -given he has very low GFR w/. still viable kidneys suggest getting Doppler Lower Ext, CT chest w/o contrast and if no clear reason for worsening hypoxemia consider VQ Scan. (4) UTI (urinary tract infection): Status: Acute Assessment and plan: -as noted above Qualifiers: Urinary tract infection type: site unspecified Hematuria presence: without hematuria Qualified Code(s): N39.0 - Urinary tract infection, site not specified (5) Elevated troponin: Status: Acute Assessment and plan: -likely type II NSTEMI due to septic shock as noted above (6) Acute kidney injury superimposed on CKD: Status: Acute Assessment and plan: left nephrostomy tube which will need to be replaced (7) Afib: Status: Chronic Assessment and plan: -eliquis on hold - agree to use heparin nomogram. -change tropol to short acting q6 Qualifiers: Atrial fibrillation type: longstanding persistent Qualified Code(s): I48.11 - Longstanding persistent atrial fibrillation (8) Primary bladder malignant neoplasm: Status: Acute Assessment and plan: per Urology recs (9) Elevated brain natriuretic peptide (BNP) level: Status: Acute Assessment and plan: - low EF 45%. Subjective Subjective Interval history since last seen: Patient understands that due to his worsening respiratory status with tachypnea and supplemental O2 increase earlier this morning that he is going to be transferred to [facility] [place] to manage his respiratory status and coordinate his nephrostomy tube replacement. Exam Narrative Exam Narrative: chronically ill appearing older gentleman laying in bed in no acute distress, AOx4, heart irregularly irregular, rate ~120bpm, lungs CTAB, abdomen soft, non-tender, non-distended, clear urine from right nephrostomy tube, clots and blood in left nephrostomy tube Objective Last Vital Signs Temp 98.6 F 10/14/23 10:46 Pulse 125 H 10/14/23 16:12 Resp 39 H 10/14/23 14:01 BP 120/76 10/14/23 16:12 Pulse Ox 91 L 10/14/23 14:01 Laboratory Results - last 24 hr 10/14/23 10/14/23 10/14/23 03:58 04:03 05:35 WBC 16.21 H Cancelled RBC 2.84 L Cancelled Hgb 7.7 L D Cancelled Hct 24.7 L Cancelled MCV 87 Cancelled MCH 27.1 Cancelled MCHC 31.2 L Cancelled RDW 15.8 H Cancelled Plt Count 227 Cancelled MPV 11.1 H Cancelled Immature Gran % 1.0 Neutrophils % 83.3 Lymphocytes % 8.9 Monocytes % 3.5 Eosinophils % 2.9 Basophils % 0.4 Nucleated RBC % 0.0 Absolute Neutrophils 13.50 H Absolute Lymphocytes 1.44 Absolute Monocytes 0.57 Absolute Eosinophils 0.47 Absolute Basophils 0.06 APTT ABG Sample Site Left Radial ABG pH 7.47 H ABG pCO2 29 L ABG pO2 65 L ABG HCO3 21 L ABG Total CO2 20 L ABG O2 Saturation 95 ABG Base Excess -3 L VBG pH VBG pCO2 VBG pO2 VBG HCO3 VBG Total CO2 VBG O2 Saturation VBG Base Excess FiO2 36 Sodium 138 Cancelled Potassium 4.2 Cancelled Chloride 106 Cancelled Carbon Dioxide 24.9 Cancelled Anion Gap 7.1 Cancelled BUN 55 H Cancelled Creatinine 2.6 H Cancelled Est GFR (CKD-EPI 2020) 25.41 Cancelled Glucose 98 Cancelled Calcium 9.8 Cancelled Ammonia 25 Troponin I < 50 Procalcitonin 44.8 ABO/Rh Antibody Screen 10/14/23 10/14/23 06:03 14:08 WBC RBC Hgb Hct MCV MCH MCHC RDW Plt Count MPV Immature Gran % Neutrophils % Lymphocytes % Monocytes % Eosinophils % Basophils % Nucleated RBC % Absolute Neutrophils Absolute Lymphocytes Absolute Monocytes Absolute Eosinophils Absolute Basophils APTT 69.0 H ABG Sample Site ABG pH ABG pCO2 ABG pO2 ABG HCO3 ABG Total CO2 ABG O2 Saturation ABG Base Excess VBG pH 7.42 H VBG pCO2 36 L VBG pO2 32 VBG HCO3 24 VBG Total CO2 22 L VBG O2 Saturation 60 VBG Base Excess -1 FiO2 Sodium Potassium Chloride Carbon Dioxide Anion Gap BUN Creatinine Est GFR (CKD-EPI 2020) Glucose Calcium Ammonia Troponin I Procalcitonin ABO/Rh A Positive Antibody Screen NEGATIVE Time Spent with Patient Time Spent with Patient: >50 minutes Time was spent: preparing to see the patient(eg.review tests), obtaining and/or reviewing separately otained hiistory, ordering medications,tests, procedures, referring, communicating with other health manager medicare, indepentently interpreting results, counseling the patient and care coordination
--- NOTE | 2023-10-14 17:20 | CMPROGNOTE_ITS ---
Date of service: 10/14/23 Time of Service: 17:20 Care Management Progress Note Progress Note Text Progress Note Text: Aníbal requires full transfer to a tertiary care hospital and is accepted to [facility], pending bed availability. Transportation will be coordinated by RN Local Sales Associate after the transfer center calls with an open bed. Discharge Anticipated Barriers to Discharge: None Identified Patient/Family Education Needs: Review discharge instructions, discuss Ask Me Three Transportation: EMS Plan: Pending full transfer to tertiary care Hospital. Pt is accepted at [facility], pending bed availability. CM will follow. SDOH(Care Management) Screening Will the Patient Participate in the Screening?: Unable to obtain
[2023-10-14 18:22] LABS: PTT Activated 50.8 sec (23.6-32.8)
[2023-10-14] MEDS: VANCOMYCIN/WATER (PEG) 1.5 GM/300 ML BAG IVPB (19:38)
[2023-10-14 19:47] LABS: HCT 27.9 % (40.0-50.0); HGB 8.7 g/dL (13.5-17.5)
[2023-10-14] MEDS: Metoprolol 25 MG TAB 50 MG PO (20:14)
--- NOTE | 2023-10-14 21:08 | DSE_ITS ---
Date of service: 10/14/23 Time of Service: 21:08 DS: Diagnosis Discharge Diagnosis (1) Septic shock: Start date: 10/11/23 Status: Acute Asessment and Plan: Patient was admitted with septic shock with source of infection most likely pneumonia with was expanding during hospital today with acute hypoxic respiratory failure requiring increased oxygen and question of PE initiated on heparin infusion off Eliquis pending [place] [facility] [place] interventional radiology to replace left nephrostomy tube which was not draining. There was no evidence of UTI. He is on expanded antibiotic coverage with cefepime and vancomycin. (2) CAP (community acquired pneumonia): Start date: 10/11/23 Status: Acute Asessment and Plan: Continue extended IV antibiotic therapy. Continue O2 supplementation as needed. (3) Acute respiratory failure with hypoxia: Start date: 10/13/23 Status: Acute Asessment and Plan: Continue treatment of pneumonia and O2 supplementation. (4) UTI (urinary tract infection): Status: Acute Asessment and Plan: Urine culture positive for Klebsiella sensitive to cephalosporins. (5) Elevated troponin: Status: Acute Asessment and Plan: Most likely demand without evidence of acute ischemia. (6) Acute kidney injury superimposed on CKD: Status: Acute Asessment and Plan: Secondary to sepsis and stable with fluid resuscitation. (7) Afib: Status: Chronic Asessment and Plan: Intermittent tachycardia and asymptomatic. (8) Primary bladder malignant neoplasm: Status: Chronic Asessment and Plan: Diagnosis within the last 2 months being followed by [facility]. (9) Elevated brain natriuretic peptide (BNP) level: Status: Acute Asessment and Plan: Elevated with pleural effusions being followed closely as fluid resuscitation may exacerbate. Follow-up echocardiogram and cardiology. Discharge Plan Disposition Patient Disposition: Transfer-Acute Inpatient Care Specific Acute Inpt Facility: [facility] Condition: Fair Discharge Details Reason For Visit: pneumonia, sepsis Admit Date/Time: 10/11/23 21:22 Admit Provider: Ranjith Christy Attending Provider: Ranjith Christy Primary Care Provider: Mary Clements Hospital Course Hospital Course: Patient was admitted with septic shock with source of infection most likely pn eumonia with was expanding during hospital today with acute hypoxic respiratory failure requiring increased oxygen and question of PE initiated on heparin infusion off Eliquis pending transfer to [facility] [place] interventional radiology to replace left nephrostomy tube which was not draining. Patient became acutely ill, this procedure was canceled and patient will be transferred to [facility] to higher level of care to continue treatment for pneumonia with expanded antibiotic coverage including vancomycin along with cefepime. He did not appear to have an acute UTI but does have hydronephrosis bilaterally and now on an extraction of his left ureter drainage. Will be able to have specialty care not available at this institution. Physical exam was stable at discharge and patient was on only 2 L/min per nasal cannula of O2 supplement without tachypnea and blood pressure stable on treatment for infection as a cause of his septic shock upon admission. He has recently diagnosed bladder cancer causing approximately both ureters prompting nephrostomy tube with a long stay at [facility] from early September to early October. He is a full code. See ED notes, H&P and daily progress notes for full review of patient's admission and progress. Home Meds and New Rx's Prescriptions: No Action acetaminophen 325 mg capsule 650 mg PO Q4H PRN Eliquis 5 mg tablet 5 mg PO BID Kapspargo Sprinkle 25 mg capsule,sprinkle,ER 24hr 125 mg PO DAILY Therapeutic-M 9 mg iron-400 mcg tablet 1 tab PO DAILY diclofenac sodium [Arthritis Pain (diclofenac)] 1 % gel 4 g topical QID Rx Instructions: apply to single knee, ankle, foot; for foot includes sole/toes/top of foot Discharge Instructions Activity:: Bedrest Equipment/Supplies:: 2 L/min nasal cannula Diet:: NPO Discharge Orders Discharge Orders: Discharge Order (Routine); Ordered 10/14/23 Ordered By: Ranjith Jules Discharge Data Discharge Comment: Transferring to higher level of care. DS: Summary Time Spent with Patient providing and/or coordinating discharge services: Greater than 30 minutes Status at Discharge Functional status at discharge: bed bound Overall status at discharge: patient is not back to baseline Mental Status: mental status grossly normal (With intermittent confusion when acutely ill but clearing) Speech and Movement: speech and movement normal Mood: congruent mood Affect: blunted (Flattened intermittently with prolonged hospitalization) Quality:SDOH Health Related Social Needs: No Data to Display Exam Narrative Exam Narrative: Stable as per last progress note. Psych Mental Status: mental status grossly normal (With intermittent confusion when acutely ill but clearing) Speech and Movement: speech and movement normal Mood: congruent mood Affect: blunted (Flattened intermittently with prolonged hospitalization) DS: Data Vitals/I&O Vitals and I&O: Vital Signs Temperature 37.0 C 10/14/23 15:45 Temperature Source Temporal Artery Scan 10/14/23 15:45 Pulse 116 H 10/14/23 18:01 Pulse 117 H 10/14/23 18:01 Respiratory Rate 31 H 10/14/23 18:01 Respiratory Effort Short of Breath 10/14/23 15:45 Respiratory Depth Shallow 10/14/23 15:45 Respiratory Pattern Tachypnea 10/14/23 15:45 Blood Pressure 112/77 10/14/23 18:01 Blood Pressure Mean 88 10/14/23 18:01 Blood Pressure Position Sitting 10/14/23 12:55 Pulse Oximetry 94 10/14/23 18:01 Oxygen Delivery Method Nasal Cannula 10/14/23 15:45 Oxygen Flow Rate 2 10/14/23 15:45 Pain Level 0 10/14/23 15:45 Intake & Output 10/13/23 10/14/23 10/14/23 23:59 11:59 23:59 Intake Total 1191.667 / 3171.230 350 / 624.066 274.066 / 624.066 Output Total 350 / 1350 2000 / 3480 1480 / 3480 Balance 841.667 / 1821.230 -1650 / -2855.934 -1205.934 / -2855.934 Weight 79 kg Intake: IV 771.667 / 1931.230 100 / 324.066 224.066 / 324.066 Oral 420 / 1240 250 / 300 50 / 300 Output: Urine 350 / 1350 2000 / 3480 1480 / 3480 Other: Urine Color Light Elle Yellow Straw Urine Appearance Clear Clear Clear Comment Left neph tube zero output. R neph tube patent and Figueroa patent L neph tube zero output Output from figueroa catheter Figueroa & R neph tube patent Stool Size Moderate Stool Characteristics Soft Formed Brown Data Completed and Pending Labs on day of discharge: Labs from last 24 hours 10/14/23 10/14/23 10/14/23 19:37 18:02 14:08 WBC RBC Hgb 8.7 L Hct 27.9 L MCV MCH MCHC RDW Plt Count MPV Immature Gran % Neutrophils % Lymphocytes % Monocytes % Eosinophils % Basophils % Nucleated RBC % Absolute Neutrophils Absolute Lymphocytes Absolute Monocytes Absolute Eosinophils Absolute Basophils APTT 50.8 H 69.0 H ABG Sample Site ABG pH ABG pCO2 ABG pO2 ABG HCO3 ABG Total CO2 ABG O2 Saturation ABG Base Excess VBG pH 7.42 H VBG pCO2 36 L VBG pO2 32 VBG HCO3 24 VBG Total CO2 22 L VBG O2 Saturation 60 VBG Base Excess -1 FiO2 Sodium Potassium Chloride Carbon Dioxide Anion Gap BUN Creatinine Est GFR (CKD-EPI 2020) Glucose Calcium Ammonia Troponin I Procalcitonin ABO/Rh Antibody Screen 10/14/23 10/14/23 10/14/23 06:03 05:35 04:03 WBC Cancelled RBC Cancelled Hgb Cancelled Hct Cancelled MCV Cancelled MCH Cancelled MCHC Cancelled RDW Cancelled Plt Count Cancelled MPV Cancelled Immature Gran % Neutrophils % Lymphocytes % Monocytes % Eosinophils % Basophils % Nucleated RBC % Absolute Neutrophils Absolute Lymphocytes Absolute Monocytes Absolute Eosinophils Absolute Basophils APTT ABG Sample Site Left Radial ABG pH 7.47 H ABG pCO2 29 L ABG pO2 65 L ABG HCO3 21 L ABG Total CO2 20 L ABG O2 Saturation 95 ABG Base Excess -3 L VBG pH VBG pCO2 VBG pO2 VBG HCO3 VBG Total CO2 VBG O2 Saturation VBG Base Excess FiO2 36 Sodium Cancelled Potassium Cancelled Chloride Cancelled Carbon Dioxide Cancelled Anion Gap Cancelled BUN Cancelled Creatinine Cancelled Est GFR (CKD-EPI 2020) Cancelled Glucose Cancelled Calcium Cancelled Ammonia Troponin I Procalcitonin ABO/Rh A Positive Antibody Screen NEGATIVE 10/14/23 03:58 WBC 16.21 H RBC 2.84 L Hgb 7.7 L D Hct 24.7 L MCV 87 MCH 27.1 MCHC 31.2 L RDW 15.8 H Plt Count 227 MPV 11.1 H Immature Gran % 1.0 Neutrophils % 83.3 Lymphocytes % 8.9 Monocytes % 3.5 Eosinophils % 2.9 Basophils % 0.4 Nucleated RBC % 0.0 Absolute Neutrophils 13.50 H Absolute Lymphocytes 1.44 Absolute Monocytes 0.57 Absolute Eosinophils 0.47 Absolute Basophils 0.06 APTT ABG Sample Site ABG pH ABG pCO2 ABG pO2 ABG HCO3 ABG Total CO2 ABG O2 Saturation ABG Base Excess VBG pH VBG pCO2 VBG pO2 VBG HCO3 VBG Total CO2 VBG O2 Saturation VBG Base Excess FiO2 Sodium 138 Potassium 4.2 Chloride 106 Carbon Dioxide 24.9 Anion Gap 7.1 BUN 55 H Creatinine 2.6 H Est GFR (CKD-EPI 2020) 25.41 Glucose 98 Calcium 9.8 Ammonia 25 Troponin I < 50 Procalcitonin 44.8 ABO/Rh Antibody Screen Preliminary micro results at discharge 10/12/23 10:35 Blood Culture - Preliminary Blood NO GROWTH 48 HOURS 10/12/23 10:25 Blood Culture - Preliminary Blood NO GROWTH 48 HOURS PFSH All Active Problems (Updated 10/14/23 @ 21:16 by Ranjith Jules) Elevated brain natriuretic peptide (BNP) level (Acute) Acute respiratory failure with hypoxia (Acute) Afib (Chronic) Acute kidney injury superimposed on CKD (Acute) Elevated troponin (Acute) UTI (urinary tract infection) (Acute) CAP (community acquired pneumonia) (Acute) Septic shock (Acute) GLADYS (acute kidney injury) (Acute) Pneumonia (Acute) Septic shock (Acute) Hypomagnesemia (Acute) Sepsis (Acute) SVT (supraventricular tachycardia) (Chronic) Acute kidney failure (Acute) Primary bladder malignant neoplasm (Chronic) Bladder spasm (Acute) BPH (benign prostatic hyperplasia) (Chronic) Bilateral hydronephrosis (Acute) Medical History Hematuria Bladder mass Cystitis DVT prophylaxis Gross hematuria Urinary retention SVT (supraventricular tachycardia) Surgical History History of transurethral resection of bladder tumor (TURBT) Social History Smoking/Tobacco Use Status: Never Smoking risk assessment performed?: Yes Alcohol Intake: former Substance use type: does not use Housing: house Do you feel safe at home: Yes Do you feel safe in your relationship?: Yes Time Spent with Patient Time Spent with Patient: 45-69 minutes Time was spent: preparing to see the patient(eg.review tests), referring, communicating with other health physician assistant primary care, indepentently interpreting results and care coordination
== END 2023-10-14 21:36 | disposition short-term general hospital (02) | DRG 871 ==
LOC: ER 22:00 → ICU 23:56
PROVIDERS: Family Medicine; Admitting Provider General Practice; Emergency Provider Emergency Medicine; PCP Family Medicine; Visit Provider General Practice
DX: A41.51 Sepsis due to Escherichia coli [E. coli] (principal); I21.A1 Myocardial infarction type 2; J18.9 Pneumonia, unspecified organism; R65.21 Severe sepsis with septic shock; J96.01 Acute respiratory failure with hypoxia; N39.0 Urinary tract infection, site not specified; N17.9 Acute kidney failure, unspecified; I48.11 Longstanding persistent atrial fibrillation; N13.30 Unspecified hydronephrosis; I47.10 Supraventricular tachycardia, unspecified; N99.522 Malfunction of incontinent external stoma of urinary tract; N18.9 Chronic kidney disease, unspecified; D64.9 Anemia, unspecified; R41.0 Disorientation, unspecified; B96.1 Klebsiella pneumoniae [K. pneumoniae] as the cause of diseases classified elsewhere
CPT/HCPCS: 36410; 00123; 36415; 36416; 36592; 71250; 71275; 80048; 80053; 82805; 82962; 84145; 85027; 86850; 86900; 86901; 87040; 87077; 87637; 93005; 93306; 94640; 96361; 96365; 96366; 96367; 96375; 97110; 97161; 97530; 99222; 99231; 99285; 36600; 70450; 71045; 76700; 81003; 81015; 82140; 83605; 83735; 83880; 84443; 84484; 85014; 85018; 85025; 85610; 85730; 87086; 87186; 93010; 99233; 99239; 99291; G0237; J0131; J0692; J1100; J1644; J1940; J2270; J3370; J3372; J3475; J7613